=== PATIENT | female | born 1985 | race Caucasian/White ===

== ENCOUNTER → 2020-06-29 09:25 | Outpatient (BNVA) | payer OTHER, SELFPAY | PROVIDERS: PCP Internal Medicine; Referring Provider Internal Medicine; Visit Provider Internal Medicine Endocrinology, Diabetes & Metabolism | DX: E03.8 Other specified hypothyroidism (principal); E06.3 Autoimmune thyroiditis; E31.0 Autoimmune polyglandular failure; E28.39 Other primary ovarian failure; D51.0 Vitamin B12 deficiency anemia due to intrinsic factor deficiency; E66.01 Morbid (severe) obesity due to excess calories; E55.9 Vitamin D deficiency, unspecified; Z88.0 Allergy status to penicillin; Z91.19 Patient's noncompliance with other medical treatment and regimen; Z79.899 Other long term (current) drug therapy | CPT/HCPCS: 99212; Q3014 ==

== ENCOUNTER 2020-07-13 10:24 | Outpatient (REF) | payer OTHER, SELFPAY ==
[2020-07-13 14:58] LABS: Free T4 (Free Thyroxine) 0.69 ng/dL (0.71-1.85); Thyroid Stimulating Hormone 40.59 uIU/mL (0.32-4.0); Vitamin D 25-OH Total 30.5 ng/mL (>30)
[2020-07-13 15:22] LABS: Vitamin B12 513 pg/mL (200-900)
== END 2020-07-13 10:25 | disposition home or self-care (01) ==
LOC: HO.10HDL 10:24
PROVIDERS: Visit Provider Internal Medicine Endocrinology, Diabetes & Metabolism
DX: E06.3 Autoimmune thyroiditis (principal); E03.8 Other specified hypothyroidism; E55.9 Vitamin D deficiency, unspecified; D51.0 Vitamin B12 deficiency anemia due to intrinsic factor deficiency
CPT/HCPCS: 82306; 82607; 84439; 84443

== ENCOUNTER 2020-08-23 13:29 | Outpatient (REF) | payer OTHER, SELFPAY | END 2020-08-23 13:30 | disposition home or self-care (01) | LOC: HO.LAB 13:29 | PROVIDERS: Visit Provider Internal Medicine | DX: Z20.828 Contact with and (suspected) exposure to other viral communicable diseases (principal) | CPT/HCPCS: C9803; U0003 ==

== ENCOUNTER 2020-09-14 14:54 | Outpatient (REF) | payer OTHER, SELFPAY ==
[2020-09-15 09:13] LABS: CT PCR NOT DETECTED (Not Detect.); NG PCR NOT DETECTED (Not Detect.)
[2020-09-15 09:32] LABS: BV Int Neg Control Negative (Negative); BV Int Pos Control Positive (Positive)
== END 2020-09-14 14:55 | disposition home or self-care (01) ==
LOC: HO.LAB 14:54
PROVIDERS: Visit Provider Nurse Practitioner Family
DX: R10.2 Pelvic and perineal pain (principal)
CPT/HCPCS: 87480; 87491; 87510; 87591; 87660

== ENCOUNTER 2021-02-15 13:57 | Outpatient (REF) | payer OTHER, SELFPAY ==
[2021-02-15 16:10] LABS: Free T4 (Free Thyroxine) 1.18 ng/dL (0.71-1.85); Thyroid Stimulating Hormone 0.63 uIU/mL (0.32-4.0)
[2021-02-16 08:42] LABS: Follicle Stimulating Hormone 47.7 mIU/mL; Lutenizing Hormone 34.9 mIU/mL
[2021-02-24 01:51] LABS: Estradiol Free 0.31 pg/mL; Estradiol, Ultrasensitive 13 pg/mL
== END 2021-02-15 13:58 | disposition home or self-care (01) ==
LOC: HO.LAB 13:57
PROVIDERS: PCP Internal Medicine; Visit Provider Internal Medicine Endocrinology, Diabetes & Metabolism
DX: Z91.19 Patient's noncompliance with other medical treatment and regimen (principal); E03.8 Other specified hypothyroidism; E06.3 Autoimmune thyroiditis; E31.0 Autoimmune polyglandular failure; E28.39 Other primary ovarian failure; D51.0 Vitamin B12 deficiency anemia due to intrinsic factor deficiency; E55.9 Vitamin D deficiency, unspecified; E66.9 Obesity, unspecified
CPT/HCPCS: 36415; 82670; 82681; 83001; 83002; 84439; 84443; 99212

== ENCOUNTER 2021-03-28 13:28 | Outpatient (REF) | payer OTHER, SELFPAY | END 2021-03-28 13:29 | disposition home or self-care (01) | LOC: HO.LAB 13:28 | PROVIDERS: PCP Internal Medicine; Visit Provider Internal Medicine | DX: Z20.822 Contact with and (suspected) exposure to COVID-19 (principal) | CPT/HCPCS: C9803; U0003; U0005 ==

== ENCOUNTER 2021-04-28 11:20 | Outpatient (REF) | payer OTHER, SELFPAY ==
[2021-04-28 11:55] LABS: COVID-19 Test Negative (Negative)
== END 2021-04-28 11:21 | disposition home or self-care (01) ==
LOC: HO.LAB 11:20
PROVIDERS: PCP Internal Medicine; Visit Provider Internal Medicine
DX: Z20.822 Contact with and (suspected) exposure to COVID-19 (principal)
CPT/HCPCS: 36415; 87635; C9803

== ENCOUNTER 2021-05-19 11:41 | Outpatient (REF) | payer OTHER, SELFPAY | END 2021-05-19 11:42 | disposition home or self-care (01) | LOC: HO.LAB 11:41 | PROVIDERS: PCP Internal Medicine; Visit Provider Internal Medicine | DX: Z20.822 Contact with and (suspected) exposure to COVID-19 (principal) | CPT/HCPCS: C9803; U0003; U0005 ==

== ENCOUNTER 2021-06-09 10:37 | Outpatient (REF) | payer OTHER, SELFPAY | END 2021-06-09 10:38 | disposition home or self-care (01) | LOC: HO.LAB 10:37 | PROVIDERS: PCP Internal Medicine; Visit Provider Internal Medicine | DX: Z20.822 Contact with and (suspected) exposure to COVID-19 (principal) | CPT/HCPCS: C9803; U0003; U0005 ==

== ENCOUNTER 2021-06-28 13:06 | Outpatient (REF) | payer OTHER, SELFPAY | END 2021-06-28 13:07 | disposition home or self-care (01) | LOC: HO.LAB 13:06 | PROVIDERS: Visit Provider Internal Medicine | DX: Z20.822 Contact with and (suspected) exposure to COVID-19 (principal) | CPT/HCPCS: C9803; U0003; U0005 ==

== ENCOUNTER 2021-09-02 08:40 | Outpatient (REF) | payer OTHER, SELFPAY ==
[2021-09-02 09:07] LABS: Binax Internal Control QC Valid; Binax Now Covid-19 Ag Positive (Negative); Binax Performed by: HO.BONILM
== END 2021-09-02 08:41 | disposition home or self-care (01) ==
LOC: HO.HMGCLDS 08:40
PROVIDERS: PCP Internal Medicine; Visit Provider Internal Medicine
DX: Z20.822 Contact with and (suspected) exposure to COVID-19 (principal); J06.9 Acute upper respiratory infection, unspecified
CPT/HCPCS: 36415

== ENCOUNTER 2021-09-09 10:34 | Outpatient (REF) | payer OTHER, SELFPAY ==
[2021-09-09 13:16] LABS: Binax Internal Control QC Valid; Binax Lot number: 9864; Binax Now Covid-19 Ag Positive (Negative)
== END 2021-09-09 10:35 | disposition home or self-care (01) ==
LOC: HO.LAB 10:34
PROVIDERS: Visit Provider Internal Medicine
DX: Z20.822 Contact with and (suspected) exposure to COVID-19 (principal)
CPT/HCPCS: C9803

== ENCOUNTER 2021-09-12 23:39 | Emergency (ER) | payer OTHER, SELFPAY ==
[2021-09-13 00:12] VITALS: BP 137/91; PULSE 75; RESP 18; TEMP 36.6; O2SAT 99; BMI 35.6
[2021-09-13 00:36] LABS: COVID-19 Test Positive (Negative); IDNOW Serial# 9DD0AD1C
[2021-09-13 02:26] VITALS: BP 140/87; PULSE 78; RESP 16; O2SAT 99
--- NOTE | 2021-09-13 03:00 | ED.URI ---
HPI - URI/Sore Throat General Chief Complaint: Upper Respiratory Symptoms Stated Complaint: Covid symptoms/ Covid+ 09/02 Time Seen by Provider: 09/13/21 01:00 History of Present Illness HPI Narrative: Patient 36 years old with a history of coughing congestion upper respiratory symptom positive history of COVID test. Symptoms persistent for the last 10 days. Positive generalized malaise weakness. Patient vaccinated for COVID x2 shots. Patient feels very tired weak. Nauseous at times. Related Data Previous Rx's Medication Instructions Recorded cholecalciferol (vitamin D3) 50 50 mcg PO DAILY 90 Days #90 cap 02/15/21 mcg (2,000 unit) capsule (Vitamin D3) cyanocobalamin (vitamin B-12) 500 500 mcg SUBLINGUAL DAILY 90 Days 02/15/21 mcg disintegrating #90 tab tablet,sublingual Levoxyl 150 mcg tablet 150 mcg PO DAILY 30 Days #90 tab NS 05/03/21 (levothyroxine) azithromycin 250 mg tablet See Rx Instructions PO .COMPLEX #6 09/02/21 tab ibuprofen 400 mg tablet 400 mg PO Q6H PRN #20 tab 09/13/21 ondansetron 4 mg disintegrating 4 mg PO TID PRN 5 Days #10 tab 09/13/21 tablet Allergies Allergy/AdvReac Type Severity Reaction Status Date / Time Penicillins Allergy Mild RASH Unverified 09/02/21 08:28 penicillin V Allergy Unknown hives Unverified 09/02/21 08:28 Review of Systems Review of Systems: Positive coughing upper respiratory symptoms positive generalized malaise positive nausea Yes all other systems are reviewed and are negative PMFSH Past Medical History Medical History (Updated 09/13/21 @ 03:02 by Alka Penny MD) Hypothyroidism Non-adherence to medical treatment Obesity Pernicious anemia Polyglandular autoimmune syndrome Premature ovarian failure Vitamin D deficiency Surgical History (Updated 06/28/20 @ 12:37 by VINCENT Smith) Hx of tubal ligation Family History Family History (Updated 06/28/20 @ 12:38 by VINCENT Smith) Father No problems noted. Mother Migraine headache Social History Social History Patient Tobacco Use Status: Never used Tobacco Advance Directives: No Physical Exam Vital Signs: Vital Signs: Last Vital Signs Temp 97.9 F 09/13/21 00:12 Pulse 78 01/18/22 02:26 Resp 16 09/13/21 02:26 BP 140/87 H 09/13/21 02:26 Pulse Ox 99 09/13/21 02:26 BMI result Body Mass Index 35.6 Appearance: Alert. Oriented X3. No acute distress. Eyes: Pupils equal, round and reactive to light. ENT: Pharynx normal. Neck: Normal inspection. Neck supple. No lymph nodes noted. No crepitus CVS: Normal heart rate and rhythm. Pulses normal. Normal S1 and S2 Respiratory: No respiratory distress. Breath sounds normal. No Wheezing. No rales Abdomen: Soft and nontender. No rigidity. No distention. good BS x4 Skin: Skin warm and dry. Normal skin color. Normal skin turgor. Extremities: No lower extremity edema. Neurovascular intact to all extremities. No Lacerations. No Rash Neuro: Oriented X 3. No motor deficit. No sensory deficit. Moving all extermities. No slurred speech MDM - URI/Sore Throat MDM Narrative Medical decision making narrative: O2 sats 99% on room air gently well appearing no acute distress low-grade temperature will have patient take Motrin for aches. Zofran for nausea. Close follow-up on an outpatient basis home isolation into all symptom has resolved for at least 2 days. Medical Records Attestation: I reviewed the patient's medical records. Lab Data Attestation: I reviewed the patient's lab results. Labs: Lab Results 09/13/21 Range/Units 00:03 COVID-19 ([facility]) Positive A (Negative) COVID-19 Clin Com See Note Discharge Plan Discharge Clinical Impression: COVID-19 Patient Disposition: Home, Self-Care Instructions: COVID-19 (Coronavirus Disease 2019) (ED) Prescriptions: New ibuprofen 400 mg tablet 400 mg PO Q6H PRN (Reason: pain) Qty: 20 RF: 0 ondansetron 4 mg tablet,disintegrating 4 mg PO TID PRN (Reason: nausea and vomiting) 5 Days Qty: 10 RF: 0 No Action levothyroxine [Levoxyl] 150 mcg tablet 150 mcg PO DAILY 30 Days Qty: 90 RF: 0 azithromycin 250 mg tablet See Rx Instructions PO .COMPLEX Qty: 6 RF: 0 cholecalciferol (vitamin D3) [Vitamin D3] 50 mcg (2,000 unit) capsule 50 mcg PO DAILY 90 Days Qty: 90 RF: 1 cyanocobalamin (vitamin B-12) 500 mcg tablet,disintegrating 500 mcg sublingual DAILY 90 Days Qty: 90 RF: 1 Referrals: Noble Bernardo MD [Primary Care Provider] - 2 days (Home isolation into all symptom has resolved for at least 2 days.)
== END 2021-09-13 03:10 | disposition home or self-care (01) ==
PROVIDERS: Emergency Provider Emergency Medicine Emergency Medical Services; PCP Internal Medicine
DX: U07.1 COVID-19 (principal)
CPT/HCPCS: 87635; 99283

== ENCOUNTER 2021-09-16 09:41 | Outpatient (REF) | payer OTHER, SELFPAY ==
[2021-09-16 10:17] LABS: Binax Now Covid-19 Ag Negative (Negative)
[2021-09-16 10:18] LABS: Binax Internal Control QC Valid
== END 2021-09-16 09:42 | disposition home or self-care (01) ==
LOC: HO.LAB 09:41
PROVIDERS: Visit Provider Internal Medicine
DX: Z20.822 Contact with and (suspected) exposure to COVID-19 (principal)
CPT/HCPCS: C9803

== ENCOUNTER 2021-10-04 13:17 | Outpatient (REF) | payer OTHER, SELFPAY ==
[2021-10-04 13:40] LABS: COVID-19 Test Negative (Negative)
== END 2021-10-04 13:18 | disposition home or self-care (01) ==
LOC: HO.LAB 13:17
PROVIDERS: Visit Provider Internal Medicine
DX: Z20.822 Contact with and (suspected) exposure to COVID-19 (principal)
CPT/HCPCS: 87635; C9803

== ENCOUNTER 2021-10-07 07:43 | Outpatient (REF) | payer OTHER, SELFPAY ==
[2021-10-07 08:07] LABS: COVID-19 Test Negative (Negative); IDNOW Serial# 16C4AD1C
== END 2021-10-07 07:44 | disposition home or self-care (01) ==
LOC: HO.LAB 07:43
PROVIDERS: Visit Provider Internal Medicine
DX: Z20.822 Contact with and (suspected) exposure to COVID-19 (principal)
CPT/HCPCS: 87635; C9803

== ENCOUNTER 2021-10-10 13:07 | Outpatient (REF) | payer OTHER, SELFPAY ==
[2021-10-11 08:24] LABS: COVID-19 Test Negative (Negative); IDNOW Serial# 16C4AD1C
== END 2021-10-10 13:08 | disposition home or self-care (01) ==
LOC: HO.LAB 13:07
PROVIDERS: Visit Provider Internal Medicine
DX: Z20.822 Contact with and (suspected) exposure to COVID-19 (principal)
CPT/HCPCS: 87635; C9803

== ENCOUNTER 2021-12-19 10:37 | Outpatient (REF) | payer OTHER, SELFPAY ==
[2021-12-19 11:59] LABS: COVID-19 Test Negative (Negative); IDNOW Serial# 16C4AD1C
== END 2021-12-19 10:38 | disposition home or self-care (01) ==
LOC: HO.LAB 10:37
PROVIDERS: Visit Provider Internal Medicine
DX: Z20.822 Contact with and (suspected) exposure to COVID-19 (principal)
CPT/HCPCS: 87635; C9803

== ENCOUNTER 2021-12-26 10:45 | Outpatient (REF) | payer OTHER, SELFPAY ==
[2021-12-26 11:19] LABS: MANUAL DIFF FLAG NO
[2021-12-26 11:58] LABS: Basophils Absolute Auto 0.1 X10*3/uL (0.0-0.2); Basophils Percent Auto 0.9 % (0-2); Eosinophils Absolute Auto 0.1 X10*3/uL (0.0-0.4); Eosinophils Percent Auto 1.8 % (0-4); Hematocrit 41.1 % (37.0-47.0); Imm Gran Abs Auto 0.02 X10*3/uL (0.00-0.03); Imm Gran Pct Auto 0.3 % (0.0-0.4); Lymphocytes Absolute Auto 2.6 X10*3/uL (1.2-4.9); Lymphocytes Percent Auto 33.1 % (20-40); Mean Corpuscular HGB Conc 31.6 g/dl (31.0-35.0); Mean Corpuscular Hemoglobin 25.9 pg (27.0-33.0); Mean Corpuscular Volume 81.9 fL (80.0-98.0); Mean Platelet Volume 11.4 fL (9.4-12.3); Monocytes Absolute Auto 0.5 X10*3/uL (0.1-1.2); Monocytes Percent Auto 6.6 % (2-11); Neutrophils Absolute Auto 4.4 x10*3/uL (2.0-8.3); Neutrophils Percent Auto 57.3 % (45-73); Platelet Count 339 X10*3/uL (160-400); Red Blood Count 5.02 X10*6/uL (4.20-5.50); Red Cell Distribution Width 14.4 % (11.0-16.0); White Blood Count 7.7 X10*3/uL (4.8-10.8)
[2021-12-26 12:08] LABS: Alanine Aminotransferase 17 U/L (0-31); Albumin Level 4.4 g/dL (3.5-5.0); Alkaline Phosphatase 88 U/L (39-117); Anion Gap 14 (12-20); Aspartate Amino Transferase 22 U/L (5-31); Bilirubin Total 0.6 mg/dL (0.0-1.0); Blood Urea Nitrogen 13 mg/dL (9-16); Calcium 9.9 mg/dL (8.4-10.2); Carbon Dioxide 25 mmol/L (22-29); Chloride 103 mmol/L (96-108); Cholesterol 274 mg/dL; Estimated Glomerular Filt Rate > 60; Glucose Fasting 85 mg/dL (60-99); HDL Cholesterol 44 mg/dL; LDL Cholesterol Calculated 184 mg/dl; Potassium 4.4 mmol/L (3.3-5.1); Sodium 138 mmol/L (135-145); Total Protein 7.8 g/dL (6.5-8.0); Triglycerides 231 mg/dL
[2021-12-26 12:29] LABS: TSH reflex Free T4 22.82 uIU/mL (0.32-4.0)
[2021-12-26 12:47] LABS: Vitamin B12 531 pg/mL (200-900)
[2021-12-26 13:07] LABS: Free T4 (Free Thyroxine) 0.86 ng/dL (0.71-1.85)
[2021-12-31 12:17] LABS: Vitamin D 25-OH, D2 <4 ng/mL; Vitamin D 25-OH, D3 34 ng/mL; Vitamin D 25-OH, Total 34 ng/mL (30-100)
== END 2021-12-26 10:46 | disposition home or self-care (01) ==
LOC: HO.HMGCLDS 10:45
PROVIDERS: PCP Internal Medicine; Visit Provider Internal Medicine
DX: Z00.01 Encounter for general adult medical examination with abnormal findings (principal); E66.09 Other obesity due to excess calories; E28.39 Other primary ovarian failure; E31.0 Autoimmune polyglandular failure; E03.9 Hypothyroidism, unspecified; D51.0 Vitamin B12 deficiency anemia due to intrinsic factor deficiency
CPT/HCPCS: 36415; 80053; 80061; 82306; 82607; 84439; 84443; 85025

== ENCOUNTER 2022-04-11 09:08 | Outpatient (REF) | payer OTHER, SELFPAY ==
[2022-04-11 10:03] LABS: COVID-19 Test Negative (Negative); IDNOW Serial# 08D9AD1C
== END 2022-04-11 09:09 | disposition home or self-care (01) ==
LOC: HO.LAB 09:08
PROVIDERS: Visit Provider Internal Medicine
DX: Z20.822 Contact with and (suspected) exposure to COVID-19 (principal)
CPT/HCPCS: 87635; C9803

== ENCOUNTER 2022-04-23 20:21 | Emergency (ER) | payer OTHER, SELFPAY ==
--- NOTE | ~2022-04-23 | XR_ITS ---
EXAMINATION: XR CHEST CLINICAL INFORMATION: Chest pain COMPARISON: None TECHNIQUE: Frontal view of the chest was obtained. FINDINGS: The lungs are clear. No airspace consolidation, pleural effusion, or pneumothorax. The cardiomediastinal silhouette is within normal limits. No acute osseous injury. XR/XR chest 1V IMPRESSION: Unremarkable examination.
[2022-04-23 20:58] VITALS: BP 131/96; PULSE 80; RESP 21; TEMP 37.1; O2SAT 99; BMI 36.6
[2022-04-23] MEDS: Ondansetron ODT 4 MG TAB.RAPDIS SUBLINGUAL (21:04)
--- NOTE | 2022-04-23 21:08 | ECG_ITS ---
Test Reason : NAUSEA Blood Pressure : / mmHG Vent. Rate : 074 BPM Atrial Rate : 074 BPM P-R Int : 154 ms QRS Dur : 090 ms QT Int : 398 ms P-R-T Axes : 053 031 039 degrees QTc Int : 441 ms Normal sinus rhythm Normal ECG When compared with ECG of 21-MAY-2009 15:52, No significant change was found Referred By: Generic ED Physician Electronically Signed By:DEJAH SILVA
--- NOTE | 2022-04-23 21:12 | ED.NAVMDI ---
HPI - Nausea/Vomiting/Diarrhea General Chief complaint: Nausea/Vomiting/Diarrhea Stated complaint: dizzy, vomiting Time Seen by Provider: 04/23/22 21:10 Source: patient Mode of arrival: ambulatory Limitations: no limitations History of Present Illness HPI Narrative: Patient with no significant abdominal issue, history of migraine had was in [place] yesterday and today, around 16:00 started vomiting multiple times about 10-15 times with 6-7 times diarrhea and diffuse abdominal pain patient denied any alcohol drinks vomiting started 1st followed by epigastric pain also complaining of headache which is on the left side of the head similar in the migraine with slight light sensitivity no fever or chills no other family member sick with same symptoms , patient did not drink any alcohol Related Data Previous Rx's Medication Instructions Recorded cyanocobalamin (vitamin B-12) 500 500 mcg sublingual DAILY 90 days 02/15/21 mcg disintegrating #90 tabs tablet,sublingual ondansetron 4 mg disintegrating 4 mg PO TID PRN nausea and 09/13/21 tablet vomiting 5 days #10 tabs ibuprofen 400 mg tablet 400 mg PO Q6H PRN pain #20 tabs 12/07/21 Levoxyl 150 mcg tablet 150 mcg PO DAILY 30 days #90 tabs 02/17/22 (levothyroxine) cholecalciferol (vitamin D3) 50 50 mcg PO DAILY 90 days #90 caps 02/20/22 mcg (2,000 unit) capsule (Vitamin D3) amitriptyline 10 mg tablet 10 mg PO BEDTIME 30 days #30 tabs 03/23/22 sumatriptan succinate 25 mg tablet 25 mg PO ONCE PRN migraine 04/11/22 headache 30 days #10 tabs ondansetron 4 mg disintegrating 4 mg PO Q6-8H PRN nausea and 04/24/22 tablet vomiting #15 tabs Allergies Allergy/AdvReac Type Severity Reaction Status Date / Time Penicillins Allergy Mild RASH Verified 04/23/22 21:01 penicillin V Allergy Unknown hives Verified 04/23/22 21:01 Review of Systems Review of Systems: Yes all other systems are reviewed and are negative [facility] Past Medical History Medical History Hypothyroidism Non-adherence to medical treatment Obesity Pernicious anemia Polyglandular autoimmune syndrome Premature ovarian failure Vitamin D deficiency Surgical History Hx of tubal ligation Family History Family History Father No problems noted. Mother Migraine headache Other Mental health disorder Substance use disorder Social History Social History Housing: Apartment Patient Tobacco Use Status: Never used Tobacco e-Cigarette/Vaping Use: Never Used Advance Directives: No Advance Directives Information Provided: No Patient : No Current occupational status: employed Cognitive needs: No Hearing needs: No Vision needs: No Physical Exam Vital Signs: Vital Signs: Last Vital Signs Temp 97.8 F 04/24/22 00:08 Pulse 80 04/24/22 00:08 Resp 15 04/24/22 00:08 BP 140/84 H 04/24/22 00:08 Pulse Ox 97 04/24/22 00:08 O2 Del Method 04/24/22 00:08 BMI result Body Mass Index 36.6 Appearance: Alert. Oriented X3. No acute distress. Eyes: PERRLA, No Nystagmus ENT: Pharynx normal. Oral Mucosa moist Neck: Normal inspection. Neck supple. CVS: Normal heart rate and rhythm. Pulses normal. Respiratory: No respiratory distress. Equal air entry bilateral, no wheezing/rales/rhonchi Abdomen: Soft, epigastric tenderness, Mariee sign negative Bowel sounds are present, no mass palpable, no CVA tenderness Skin: Skin warm and dry. Normal skin color. Normal skin turgor. Extremities: No lower extremity edema. No calf tenderness Neuro: Oriented X 3. No motor deficit. No sensory deficit.No cerebellar signs , cranial nerves II-XII intact MDM - Nausea/Vomiting/Diarrhea MDM Narrative Medical decision making narrative: Patient acute gastritis with vomiting improved after IV fluids and Zofran also had migraine headache which also improved patient does not have any history of hypertension but blood pressure was elevated which she gets usually when she is stressed out or in pain patient advised to follow with PCP and monitor her blood pressure patient was able to drink p.o. fluids in the ER will discharge patient home Lab Data Attestation: I reviewed the patient's lab results. Result diagrams: 04/23/22 21:26 04/23/22 22:29 Labs: Lab Results 04/23/22 04/23/22 04/23/22 Range/Units 21:21 21:26 22:29 WBC 9.7 (4.8-10.8) X10*3/uL RBC 5.51 H (4.20-5.50) X10*6/uL Hgb 13.7 (12.0-16.0) g/dl Hct 42.0 (37.0-47.0) % MCV 76.2 L (80.0-98.0) fL MCH 24.9 L (27.0-33.0) pg MCHC 32.6 (31.0-35.0) g/dl RDW 15.7 (11.0-16.0) % Plt Count 302 (160-400) X10*3/uL MPV 11.0 (9.4-12.3) fL Immature Gran % (Auto) 0.2 (0.0-0.4) % Neut % (Auto) 72.7 (45-73) % Lymph % (Auto) 19.5 L (20-40) % [place] % (Auto) 5.6 (2-11) % Eos % (Auto) 1.3 (0-4) % Baso % (Auto) 0.7 (0-2) % Lymph # (Auto) 1.9 (1.2-4.9) X10*3/uL [place] # (Auto) 0.6 (0.1-1.2) X10*3/uL Eos # (Auto) 0.1 (0.0-0.4) X10*3/uL Baso # (Auto) 0.1 (0.0-0.2) X10*3/uL Abs Immat Gran (auto) 0.02 (0.00-0.03) X10*3/uL Absolute Neuts (auto) 7.1 (2.0-8.3) x10*3/uL Absolute Nucleated RBC 0.000 (0.0-0.012) X10*3/uL Nucleated RBC % (auto) 0.0 (0.0-0.2) /100WBC Sodium 139 (135-145) mmol/L Potassium 3.5 D (3.3-5.1) mmol/L Chloride 103 (96-108) mmol/L Carbon Dioxide 23 (22-29) mmol/L Anion Gap 17 (12-20) BUN 13 (9-16) mg/dL Creatinine 1.01 (0.5-1.4) mg/dL Estim Creat Clear Calc 79.1 Estimated GFR > 60 Random Glucose 124 H (60-115) mg/dL Calcium 9.3 D (8.4-10.2) mg/dL Total Bilirubin 0.5 (0.0-1.0) mg/dL Direct Bilirubin 0.2 (0.0-0.5) mg/dL AST 25 (5-31) U/L ALT 25 (0-31) U/L Alkaline Phosphatase 99 (39-117) U/L Total Protein 7.8 (6.5-8.0) g/dL Albumin 4.5 (3.5-5.0) g/dL Lipase 31 (8-78) U/L Urine Color Urine Appearance Urine pH (5.0-8.0) Ur Specific [place] (1.005-1.025) Urine Protein (Neg-Trace) mg/dL Urine Glucose (UA) (Negative) mg/dL Urine Ketones (Negative) mg/dL Urine Blood (Negative) Urine Nitrite (Negative) Ur Leukocyte Esterase (Negative) Urine RBC (0-2) /HPF Urine WBC (0-5) /HPF Ur Squamous Epith Cells (0-2) /HPF Urine Bacteria (None Seen) Hyaline Casts (0-2) /LPF Urine Test (NEGATIVE) COVID-19 ([facility]) Negative (Negative) COVID-19 Clin Com See Note 04/23/22 04/23/22 Range/Units 22:29 22:29 WBC (4.8-10.8) X10*3/uL RBC (4.20-5.50) X10*6/uL Hgb (12.0-16.0) g/dl Hct (37.0-47.0) % MCV (80.0-98.0) fL MCH (27.0-33.0) pg MCHC (31.0-35.0) g/dl RDW (11.0-16.0) % Plt Count (160-400) X10*3/uL MPV (9.4-12.3) fL Immature Gran % (Auto) (0.0-0.4) % Neut % (Auto) (45-73) % Lymph % (Auto) (20-40) % [place] % (Auto) (2-11) % Eos % (Auto) (0-4) % Baso % (Auto) (0-2) % Lymph # (Auto) (1.2-4.9) X10*3/uL [place] # (Auto) (0.1-1.2) X10*3/uL Eos # (Auto) (0.0-0.4) X10*3/uL Baso # (Auto) (0.0-0.2) X10*3/uL Abs Immat Gran (auto) (0.00-0.03) X10*3/uL Absolute Neuts (auto) (2.0-8.3) x10*3/uL Absolute Nucleated RBC (0.0-0.012) X10*3/uL Nucleated RBC % (auto) (0.0-0.2) /100WBC Sodium (135-145) mmol/L Potassium (3.3-5.1) mmol/L Chloride (96-108) mmol/L Carbon Dioxide (22-29) mmol/L Anion Gap (12-20) BUN (9-16) mg/dL Creatinine (0.5-1.4) mg/dL Estim Creat Clear Calc Estimated GFR Random Glucose (60-115) mg/dL Calcium (8.4-10.2) mg/dL Total Bilirubin (0.0-1.0) mg/dL Direct Bilirubin (0.0-0.5) mg/dL AST (5-31) U/L ALT (0-31) U/L Alkaline Phosphatase (39-117) U/L Total Protein (6.5-8.0) g/dL Albumin (3.5-5.0) g/dL Lipase (8-78) U/L Urine Color Yellow Urine Appearance Clear Urine pH >= 9.0 H (5.0-8.0) Ur Specific [place] 1.025 (1.005-1.025) Urine Protein 30 (1+) H (Neg-Trace) mg/dL Urine Glucose (UA) Negative (Negative) mg/dL Urine Ketones 15 (Negative) mg/dL Urine Blood Negative (Negative) Urine Nitrite Negative (Negative) Ur Leukocyte Esterase Trace H (Negative) Urine RBC 0-2 (0-2) /HPF Urine WBC 0-5 (0-5) /HPF Ur Squamous Epith Cells 3-5 (0-2) /HPF Urine Bacteria 1+ (None Seen) Hyaline Casts 0-2 (0-2) /LPF Urine Test NEGATIVE (NEGATIVE) COVID-19 ([facility]) (Negative) COVID-19 Clin Com Discharge Plan Discharge Clinical Impression: Vomiting and diarrhea, Dehydration Patient Disposition: Home, Self-Care Instructions: Acute Nausea and Vomiting (ED), Acute Diarrhea (ED) Additional Instructions: Drink plenty of fluids Nausea medication as prescribed Repair of the ER/PCP if not better A blood pressure noticed to be slightly elevated keep an eye on the blood pressure check at least twice daily it should be less than 130/80 Prescriptions: New ondansetron 4 mg tablet,disintegrating 4 mg PO Q6-8H PRN (Reason: nausea and vomiting) Qty: 15 0RF No Action levothyroxine [Levoxyl] 150 mcg tablet 150 mcg PO DAILY 30 Days Qty: 90 0RF cholecalciferol (vitamin D3) [Vitamin D3] 50 mcg (2,000 unit) capsule 50 mcg PO DAILY 90 Days Qty: 90 1RF amitriptyline 10 mg tablet 10 mg PO BEDTIME 30 Days Qty: 30 0RF sumatriptan succinate 25 mg tablet 25 mg PO ONCE PRN (Reason: migraine headache) 30 Days Qty: 10 1RF Rx Instructions: take at onset of headache with one ibuprofen ondansetron 4 mg tablet,disintegrating 4 mg PO TID PRN (Reason: nausea and vomiting) 5 Days Qty: 10 0RF ibuprofen 400 mg tablet 400 mg PO Q6H PRN (Reason: pain) Qty: 20 0RF cyanocobalamin (vitamin B-12) 500 mcg tablet,disintegrating 500 mcg sublingual DAILY 90 Days Qty: 90 1RF Stand Alone Forms: Work/School Release Interventions: ED Discharge Assessment Last Done: 04/24/22 00:10 Discharge Date/Time: 04/24/22 00:11
[2022-04-23 21:14] VITALS: BP 138/97; PULSE 80; RESP 18; TEMP 36.6; O2SAT 100
--- NOTE | 2022-04-23 21:29 | PC.NURSE ---
COVID swab and labs collected and sent as ordered
[2022-04-23 21:32] LABS: MANUAL DIFF FLAG NO
[2022-04-23 21:34] LABS: Basophils Absolute Auto 0.1 X10*3/uL (0.0-0.2); Basophils Percent Auto 0.7 % (0-2); Eosinophils Absolute Auto 0.1 X10*3/uL (0.0-0.4); Eosinophils Percent Auto 1.3 % (0-4); Hemoglobin 13.7 g/dl (12.0-16.0); Imm Gran Abs Auto 0.02 X10*3/uL (0.00-0.03); Imm Gran Pct Auto 0.2 % (0.0-0.4); Lymphocytes Absolute Auto 1.9 X10*3/uL (1.2-4.9); Lymphocytes Percent Auto 19.5 % (20-40); Mean Corpuscular HGB Conc 32.6 g/dl (31.0-35.0); Mean Corpuscular Hemoglobin 24.9 pg (27.0-33.0); Mean Corpuscular Volume 76.2 fL (80.0-98.0); Monocytes Absolute Auto 0.6 X10*3/uL (0.1-1.2); Monocytes Percent Auto 5.6 % (2-11); Neutrophils Absolute Auto 7.1 x10*3/uL (2.0-8.3); Neutrophils Percent Auto 72.7 % (45-73); Platelet Count 302 X10*3/uL (160-400); Red Blood Count 5.51 X10*6/uL (4.20-5.50); Red Cell Distribution Width 15.7 % (11.0-16.0); White Blood Count 9.7 X10*3/uL (4.8-10.8)
[2022-04-23] MEDS: Ketorolac Tromethamine 30 MG/ML VIAL IVPUSH (21:34)
[2022-04-23] MEDS: Prochlorperazine Edisylate 10 MG/2 ML VIAL IVPUSH (21:34)
[2022-04-23] MEDS: Famotidine/PF 20 MG/2 ML VIAL IVPUSH (21:34)
[2022-04-23] MEDS: 0.9 % Sodium Chloride 1,000 ML 999 ML IV (21:35)
[2022-04-23 21:51] LABS: COVID-19 Test Negative (Negative)
--- NOTE | 2022-04-23 22:22 | PC.NURSE ---
Care delayed - lab did not notify that labs were hemolyzed. Labs are being redrawn now
[2022-04-23 22:38] LABS: Appearance Urine Clear; Color Urine Yellow; Glucose Urine UA Negative (Negative); Leukocyte Esterase Urine Trace (Negative); Nitrite Urine Negative (Negative); PH >= 9.0 (5.0-8.0); Specific Gravity - Urine 1.025 (1.005-1.025); Urine Blood Negative (Negative); Urine Ketones 15 mg/dL (Negative); Urine Protein 30 (1+) mg/dL (Neg-Trace)
[2022-04-23 22:42] LABS: UPreg QC Valid YES; Urine Pregnancy NEGATIVE (NEGATIVE)
[2022-04-23 22:47] LABS: Bacteria Urine 1+ (None Seen); Hyaline Casts Urine 0-2 /LPF (0-2); RBC Urine 0-2 /HPF (0-2); WBC Urine 0-5 /HPF (0-5)
[2022-04-23 22:52] LABS: Alanine Aminotransferase 25 U/L (0-31); Albumin Level 4.5 g/dL (3.5-5.0); Alkaline Phosphatase 99 U/L (39-117); Anion Gap 17 (12-20); Aspartate Amino Transferase 25 U/L (5-31); Bilirubin Direct 0.2 mg/dL (0.0-0.5); Bilirubin Total 0.5 mg/dL (0.0-1.0); Blood Urea Nitrogen 13 mg/dL (9-16); Calcium 9.3 mg/dL (8.4-10.2); Carbon Dioxide 23 mmol/L (22-29); Chloride 103 mmol/L (96-108); Creatinine Clr Calc Pharmacy 79.1; Estimated Glomerular Filt Rate > 60; Glucose Random 124 mg/dL (60-115); Lipase 31 U/L (8-78); Potassium 3.5 mmol/L (3.3-5.1); Sodium 139 mmol/L (135-145); Total Protein 7.8 g/dL (6.5-8.0)
--- NOTE | 2022-04-23 23:40 | PC.NURSE ---
Per MD Evelyn, don't hang the second ordered bag of fluids. Doing PO challenge with pt. now, and will d/c if PO is tolerated.
[2022-04-23 23:41] VITALS: BP 160/95; PULSE 95; RESP 16; O2SAT 95
[2022-04-24 00:08] VITALS: BP 140/84; PULSE 80; RESP 15; TEMP 36.6; O2SAT 97
== END 2022-04-24 00:11 | disposition home or self-care (01) ==
PROVIDERS: Emergency Provider Internal Medicine; PCP Internal Medicine
DX: R42 Dizziness and giddiness (principal); E86.0 Dehydration; R11.0 Nausea; Z20.822 Contact with and (suspected) exposure to COVID-19; Z79.899 Other long term (current) drug therapy
CPT/HCPCS: 36415; 71045; 80048; 80076; 81001; 81025; 83690; 85025; 87635; 93005; 96374; 96375; 99284; J1885

== ENCOUNTER 2022-04-25 09:47 | Outpatient (REF) | payer OTHER, SELFPAY ==
[2022-04-25 10:19] LABS: COVID-19 Test Negative (Negative)
== END 2022-04-25 09:48 | disposition home or self-care (01) ==
LOC: HO.LAB 09:47
PROVIDERS: Visit Provider Internal Medicine
DX: Z20.822 Contact with and (suspected) exposure to COVID-19 (principal)
CPT/HCPCS: 87635; C9803

== ENCOUNTER 2022-04-26 09:04 | Outpatient (REF) | payer OTHER, SELFPAY ==
[2022-04-26 10:01] LABS: COVID-19 Test Negative (Negative); IDNOW Serial# 9DB6401D
== END 2022-04-26 09:05 | disposition home or self-care (01) ==
LOC: HO.LAB 09:04
PROVIDERS: Visit Provider Internal Medicine
DX: Z20.822 Contact with and (suspected) exposure to COVID-19 (principal)
CPT/HCPCS: 87635; C9803

== ENCOUNTER 2022-04-27 09:10 | Outpatient (REF) | payer OTHER, SELFPAY ==
[2022-04-27 09:45] LABS: COVID-19 Test Negative (Negative); IDNOW Serial# 16C4AD1C
== END 2022-04-27 09:11 | disposition home or self-care (01) ==
LOC: HO.LAB 09:10
PROVIDERS: Visit Provider Internal Medicine
DX: Z20.822 Contact with and (suspected) exposure to COVID-19 (principal)
CPT/HCPCS: 87635; C9803

== ENCOUNTER 2022-05-10 09:19 | Outpatient (REF) | payer OTHER, SELFPAY ==
[2022-05-10 10:39] LABS: Alanine Aminotransferase 26 U/L (0-31); Albumin Level 4.5 g/dL (3.5-5.0); Alkaline Phosphatase 101 U/L (39-117); Anion Gap 15 (12-20); Aspartate Amino Transferase 23 U/L (5-31); Bilirubin Total 0.3 mg/dL (0.0-1.0); Blood Urea Nitrogen 13 mg/dL (9-16); Calcium 10.2 mg/dL (8.4-10.2); Carbon Dioxide 28 mmol/L (22-29); Chloride 103 mmol/L (96-108); Cholesterol 217 mg/dL; Estimated Glomerular Filt Rate > 60; Glucose Fasting 92 mg/dL (60-99); HDL Cholesterol 36 mg/dL; LDL Cholesterol Calculated 120 mg/dl; Potassium 4.9 mmol/L (3.3-5.1); Sodium 141 mmol/L (135-145); Total Protein 7.8 g/dL (6.5-8.0); Triglycerides 309 mg/dL
== END 2022-05-10 09:20 | disposition home or self-care (01) ==
LOC: HO.LAB 09:19
PROVIDERS: PCP Internal Medicine; Visit Provider Internal Medicine
DX: E03.8 Other specified hypothyroidism (principal); E66.09 Other obesity due to excess calories; E78.9 Disorder of lipoprotein metabolism, unspecified; G43.909 Migraine, unspecified, not intractable, without status migrainosus; Z91.19 Patient's noncompliance with other medical treatment and regimen
CPT/HCPCS: 36415; 80053; 80061; 84443

== ENCOUNTER → 2022-05-12 09:14 | Outpatient (BNVA) | payer OTHER, SELFPAY | PROVIDERS: PCP Internal Medicine; Visit Provider Internal Medicine Endocrinology, Diabetes & Metabolism | DX: E03.8 Other specified hypothyroidism (principal); E06.3 Autoimmune thyroiditis | CPT/HCPCS: 99212 ==

== ENCOUNTER 2022-05-18 08:59 | Outpatient (REF) | payer OTHER, SELFPAY ==
[2022-05-18 09:52] LABS: COVID-19 Test Positive (Negative); IDNOW Serial# 55D5AD1C
== END 2022-05-18 09:00 | disposition home or self-care (01) ==
LOC: HO.LAB 08:59
PROVIDERS: Visit Provider Internal Medicine
DX: Z20.822 Contact with and (suspected) exposure to COVID-19 (principal)
CPT/HCPCS: 87635; C9803

== ENCOUNTER 2022-05-23 08:58 | Outpatient (REF) | payer OTHER, SELFPAY ==
[2022-05-23 09:31] LABS: COVID-19 Test Positive (Negative); IDNOW Serial# 16C4AD1C
== END 2022-05-23 08:59 | disposition home or self-care (01) ==
LOC: HO.LAB 08:58
PROVIDERS: Visit Provider Internal Medicine
DX: Z20.822 Contact with and (suspected) exposure to COVID-19 (principal)
CPT/HCPCS: 87635; C9803

== ENCOUNTER 2022-05-25 09:05 | Outpatient (REF) | payer OTHER, SELFPAY ==
[2022-05-25 09:53] LABS: IDNOW Serial# 08D9AD1C
[2022-05-25 09:54] LABS: COVID-19 Test Positive (Negative)
== END 2022-05-25 09:06 | disposition home or self-care (01) ==
LOC: HO.LAB 09:05
PROVIDERS: Visit Provider Internal Medicine
DX: Z20.822 Contact with and (suspected) exposure to COVID-19 (principal)
CPT/HCPCS: 87635; C9803

== ENCOUNTER 2022-05-27 20:47 | Emergency (ER) | payer OTHER, SELFPAY ==
[2022-05-27 20:50] VITALS: BP 149/105; PULSE 112; RESP 18; TEMP 36.7; O2SAT 96; BMI 38.4
[2022-05-27 21:32] LABS: COVID-19 Test Negative (Negative); IDNOW Serial# 9DB6401D
[2022-05-27 21:53] VITALS: BP 138/72; PULSE 87; RESP 18; TEMP 37.2; O2SAT 92
[2022-05-27] MEDS: Acetaminophen 325 MG TABLET 975 MG PO (21:58)
[2022-05-27] MEDS: ondansetron HCL 4 MG/2 ML VIAL IVPUSH (21:58)
[2022-05-27] MEDS: 0.9 % Sodium Chloride 1,000 ML 999 ML IV ×2 (21:58→22:48)
[2022-05-27] MEDS: Ibuprofen 400 MG TABLET PO (21:58)
--- NOTE | 2022-05-27 22:02 | ED.GENADULT ---
HPI - General Adult General Chief complaint: Fever Stated complaint: vomiting,headache,diarrhea Time Seen by Provider: 05/27/22 21:25 Source: patient Mode of arrival: ambulatory History of Present Illness HPI narrative: 37-year-old female with history of COVID-19 infection on 05/18, and she now presents with onset nausea, vomiting, diarrhea after eating fast food. Patient states that she developed a headache after the nausea and vomiting and has associated chills but otherwise had been recovering from her COVID-19 infection. Related Data Home Medications Medication Instructions Recorded Confirmed fluconazole 150 mg tablet 150 mg PO Q3D 05/12/22 (Diflucan) Previous Rx's Medication Instructions Recorded ondansetron 4 mg disintegrating 4 mg PO TID PRN nausea and 09/13/21 tablet vomiting 5 days #10 tabs ibuprofen 400 mg tablet 400 mg PO Q6H PRN pain #20 tabs 12/07/21 cholecalciferol (vitamin D3) 50 50 mcg PO DAILY 90 days #90 caps 02/20/22 mcg (2,000 unit) capsule (Vitamin D3) ondansetron 4 mg disintegrating 4 mg PO Q6-8H PRN nausea and 04/24/22 tablet vomiting #15 tabs amitriptyline 25 mg tablet 25 mg PO BEDTIME 90 days #90 tabs 05/03/22 cyanocobalamin (vitamin B-12) 500 500 mcg sublingual DAILY 90 days 05/03/22 mcg disintegrating #90 tabs tablet,sublingual sumatriptan succinate 50 mg tablet 50 mg PO ONCE PRN migraine 05/03/22 headache 30 days #14 tabs Levoxyl 150 mcg tablet 150 mcg PO DAILY 30 days #90 tabs 05/23/22 (levothyroxine) ondansetron 4 mg disintegrating 4 mg PO Q8H PRN nausea and 05/27/22 tablet vomiting #7 tabs Allergies Allergy/AdvReac Type Severity Reaction Status Date / Time Penicillins Allergy Mild RASH Verified 05/12/22 09:19 penicillin V Allergy Unknown hives Verified 05/12/22 09:19 Review of Systems Review of Systems: Pertinent positives and negatives as stated in HPI 10 point review of systems is otherwise ne PMFSH Past Medical History Source: nursing notes reviewed Medical History Hypothyroidism Non-adherence to medical treatment Obesity Pernicious anemia Polyglandular autoimmune syndrome Premature ovarian failure Vitamin D deficiency Surgical History Hx of tubal ligation Family History Family History Father No problems noted. Mother Migraine headache Other Mental health disorder Substance use disorder Social History Social History Housing: Apartment Patient Tobacco Use Status: Never used Tobacco e-Cigarette/Vaping Use: Never Used Advance Directives: No Current occupational status: employed Cognitive needs: No Hearing needs: No Vision needs: No Physical Exam ED Vital Signs: Vital Signs - 24 hr 05/27/22 20:50 05/27/22 21:53 05/27/22 22:30 Temperature 98.1 F 98.9 F Pulse Rate 112 H 87 103 H Respiratory Rate 18 18 15 Blood Pressure 149/105 H 138/72 157/93 H Pulse Oximetry 96 92 94 Oxygen Delivery Method Room Air Room Air 05/27/22 22:50 Temperature 97.5 F Pulse Rate 95 Respiratory Rate 17 Blood Pressure 122/81 Pulse Oximetry 95 Oxygen Delivery Method Room Air BMI result Body Mass Index 38.4 VITAL SIGNS: Reviewed. GENERAL: Well developed, well nourished, in moderate distress. HEAD: Normocephalic/atraumatic EYES: PERRLA, EOMI EARS: Ext canals without abnormality, TMs non-bulging and non-erythematous NOSE: Nares patent bilateral OROPHARYNX: no oral lesions noted, posterior pharynx clear and non-erythematous without noted tonsillar enlargement/erythema/exudates NECK: Supple, no adenopathy LUNGS: Normal breath sounds. No adventitious sounds or accessory muscle use. SpO2<96> CARDIOVASCULAR: Regular rate and rhythm without noted murmurs ABDOMEN: Soft, non-tender, non-distended with bowel sounds. MUSCULOSKELETAL: No tenderness, deformities, or effusions noted on gross inspection. EXTREMITIES: No cyanosis, clubbing or edema. SKIN: Inspection of the skin reveals no rashes NEUROLOGIC: Alert and oriented x 4. Strength and sensation to light touch were grossly intact x 4. Course Course Course Narrative: 37-year-old female with history and clinical presentation consistent with suspected gastroenteritis, food poisoning as patient is now almost 10 days out [facility] Review of all investigations negative for acute findings and patient has received IV fluid hydration as well as antiemetics and is currently feeling much better and is tolerating oral intake. She is discharged home in stable condition. The leukocytosis that is observed is felt to be stress / reactive to patient's current nausea and vomiting. She is otherwise afebrile. Medical Decision Making Lab Data Result diagrams: 05/27/22 21:56 05/27/22 21:56 Labs: Lab Results 05/27/22 05/27/22 05/27/22 Range/Units 21:11 21:56 21:56 WBC 12.0 H (4.8-10.8) X10*3/uL RBC 5.21 (4.20-5.50) X10*6/uL Hgb 13.1 (12.0-16.0) g/dl Hct 40.5 (37.0-47.0) % MCV 77.7 L (80.0-98.0) fL MCH 25.1 L (27.0-33.0) pg MCHC 32.3 (31.0-35.0) g/dl RDW 15.1 (11.0-16.0) % Plt Count 339 (160-400) X10*3/uL MPV 10.6 (9.4-12.3) fL Immature Gran % (Auto) 0.4 (0.0-0.4) % Neut % (Auto) 79.9 H (45-73) % Lymph % (Auto) 14.0 L (20-40) % [place] % (Auto) 4.7 (2-11) % Eos % (Auto) 0.6 (0-4) % Baso % (Auto) 0.4 (0-2) % Lymph # (Auto) 1.7 (1.2-4.9) X10*3/uL [place] # (Auto) 0.6 (0.1-1.2) X10*3/uL Eos # (Auto) 0.1 (0.0-0.4) X10*3/uL Baso # (Auto) 0.1 (0.0-0.2) X10*3/uL Abs Immat Gran (auto) 0.05 H (0.00-0.03) X10*3/uL Absolute Neuts (auto) 9.6 H (2.0-8.3) x10*3/uL Absolute Nucleated RBC 0.000 (0.0-0.012) X10*3/uL Nucleated RBC % (auto) 0.0 (0.0-0.2) /100WBC Sodium 140 (135-145) mmol/L Potassium 4.1 (3.3-5.1) mmol/L Chloride 102 (96-108) mmol/L Carbon Dioxide 22 (22-29) mmol/L Anion Gap 20 (12-20) BUN 15 (9-16) mg/dL Creatinine 0.87 (0.5-1.4) mg/dL Estim Creat Clear Calc 94.3 Estimated GFR > 60 Random Glucose 109 (60-115) mg/dL Calcium 9.8 (8.4-10.2) mg/dL Total Bilirubin 0.4 (0.0-1.0) mg/dL AST 26 (5-31) U/L ALT 28 (0-31) U/L Alkaline Phosphatase 100 (39-117) U/L Total Protein 7.9 (6.5-8.0) g/dL Albumin 4.5 (3.5-5.0) g/dL Urine Test (NEGATIVE) COVID-19 ([facility]) Negative (Negative) COVID-19 Clin Com See Note 05/27/22 Range/Units 22:03 WBC (4.8-10.8) X10*3/uL RBC (4.20-5.50) X10*6/uL Hgb (12.0-16.0) g/dl Hct (37.0-47.0) % MCV (80.0-98.0) fL MCH (27.0-33.0) pg MCHC (31.0-35.0) g/dl RDW (11.0-16.0) % Plt Count (160-400) X10*3/uL MPV (9.4-12.3) fL Immature Gran % (Auto) (0.0-0.4) % Neut % (Auto) (45-73) % Lymph % (Auto) (20-40) % [place] % (Auto) (2-11) % Eos % (Auto) (0-4) % Baso % (Auto) (0-2) % Lymph # (Auto) (1.2-4.9) X10*3/uL [place] # (Auto) (0.1-1.2) X10*3/uL Eos # (Auto) (0.0-0.4) X10*3/uL Baso # (Auto) (0.0-0.2) X10*3/uL Abs Immat Gran (auto) (0.00-0.03) X10*3/uL Absolute Neuts (auto) (2.0-8.3) x10*3/uL Absolute Nucleated RBC (0.0-0.012) X10*3/uL Nucleated RBC % (auto) (0.0-0.2) /100WBC Sodium (135-145) mmol/L Potassium (3.3-5.1) mmol/L Chloride (96-108) mmol/L Carbon Dioxide (22-29) mmol/L Anion Gap (12-20) BUN (9-16) mg/dL Creatinine (0.5-1.4) mg/dL Estim Creat Clear Calc Estimated GFR Random Glucose (60-115) mg/dL Calcium (8.4-10.2) mg/dL Total Bilirubin (0.0-1.0) mg/dL AST (5-31) U/L ALT (0-31) U/L Alkaline Phosphatase (39-117) U/L Total Protein (6.5-8.0) g/dL Albumin (3.5-5.0) g/dL Urine Test NEGATIVE (NEGATIVE) COVID-19 ([facility]) (Negative) COVID-19 Clin Com Discharge Plan Discharge Clinical Impression: Gastroenteritis, Food poisoning Patient Disposition: Home, Self-Care Instructions: Gastroenteritis (ED), Food Poisoning (ED), Nutrition Tips for Relief of Diarrhea (ED) Additional Instructions: 1. Resume all home medications as prescribed. 2. Continue stay well hydrated with water 3. Follow-up with your primary care provider by calling the office on Sunday morning. Return to the ER for worsening symptoms Prescriptions: New ondansetron 4 mg tablet,disintegrating 4 mg PO Q8H PRN (Reason: nausea and vomiting) Qty: 7 0RF No Action cholecalciferol (vitamin D3) [Vitamin D3] 50 mcg (2,000 unit) capsule 50 mcg PO DAILY 90 Days Qty: 90 1RF levothyroxine [Levoxyl] 150 mcg tablet 150 mcg PO DAILY 30 Days Qty: 90 0RF ondansetron 4 mg tablet,disintegrating 4 mg PO Q6-8H PRN (Reason: nausea and vomiting) Qty: 15 0RF ondansetron 4 mg tablet,disintegrating 4 mg PO TID PRN (Reason: nausea and vomiting) 5 Days Qty: 10 0RF ibuprofen 400 mg tablet 400 mg PO Q6H PRN (Reason: pain) Qty: 20 0RF amitriptyline 25 mg tablet 25 mg PO BEDTIME 90 Days Qty: 90 0RF sumatriptan succinate 50 mg tablet 50 mg PO ONCE PRN (Reason: migraine headache) 30 Days Qty: 14 1RF Rx Instructions: take at onset of headache with one ibuprofen cyanocobalamin (vitamin B-12) 500 mcg tablet,disintegrating 500 mcg sublingual DAILY 90 Days Qty: 90 1RF fluconazole [Diflucan] 150 mg tablet 150 mg PO Q3D Rx Instructions: may repeat second dose 72 hrs after first dose if symptoms persist Referrals: Noble Bernardo MD [Primary Care Provider] -
[2022-05-27 22:09] LABS: MANUAL DIFF FLAG NO
[2022-05-27 22:13] LABS: Basophils Absolute Auto 0.1 X10*3/uL (0.0-0.2); Basophils Percent Auto 0.4 % (0-2); Eosinophils Absolute Auto 0.1 X10*3/uL (0.0-0.4); Eosinophils Percent Auto 0.6 % (0-4); Hematocrit 40.5 % (37.0-47.0); Hemoglobin 13.1 g/dl (12.0-16.0); Imm Gran Abs Auto 0.05 X10*3/uL (0.00-0.03); Imm Gran Pct Auto 0.4 % (0.0-0.4); Lymphocytes Absolute Auto 1.7 X10*3/uL (1.2-4.9); Mean Corpuscular HGB Conc 32.3 g/dl (31.0-35.0); Mean Corpuscular Hemoglobin 25.1 pg (27.0-33.0); Mean Corpuscular Volume 77.7 fL (80.0-98.0); Mean Platelet Volume 10.6 fL (9.4-12.3); Monocytes Absolute Auto 0.6 X10*3/uL (0.1-1.2); Monocytes Percent Auto 4.7 % (2-11); Neutrophils Absolute Auto 9.6 x10*3/uL (2.0-8.3); Neutrophils Percent Auto 79.9 % (45-73); Platelet Count 339 X10*3/uL (160-400); Red Blood Count 5.21 X10*6/uL (4.20-5.50); Red Cell Distribution Width 15.1 % (11.0-16.0)
[2022-05-27 22:13] LABS: Urine Pregnancy NEGATIVE (NEGATIVE)
[2022-05-27 22:14] LABS: UPreg QC Valid YES
[2022-05-27 22:30] VITALS: BP 157/93; PULSE 103; RESP 15; O2SAT 94
[2022-05-27 22:32] LABS: Alanine Aminotransferase 28 U/L (0-31); Albumin Level 4.5 g/dL (3.5-5.0); Alkaline Phosphatase 100 U/L (39-117); Anion Gap 20 (12-20); Aspartate Amino Transferase 26 U/L (5-31); Bilirubin Total 0.4 mg/dL (0.0-1.0); Blood Urea Nitrogen 15 mg/dL (9-16); Calcium 9.8 mg/dL (8.4-10.2); Carbon Dioxide 22 mmol/L (22-29); Chloride 102 mmol/L (96-108); Creatinine Clr Calc Pharmacy 94.3; Estimated Glomerular Filt Rate > 60; Glucose Random 109 mg/dL (60-115); Potassium 4.1 mmol/L (3.3-5.1); Sodium 140 mmol/L (135-145); Total Protein 7.9 g/dL (6.5-8.0)
[2022-05-27] MEDS: diphenhydrAMINE HCL 50 MG/ML VIAL 25 MG IVPUSH (22:46)
[2022-05-27] MEDS: Metoclopramide HCl 10 MG/2 ML VIAL IVPUSH (22:46)
[2022-05-27 22:50] VITALS: BP 122/81; PULSE 95; RESP 17; TEMP 36.4; O2SAT 95
== END 2022-05-28 00:05 | disposition home or self-care (01) ==
PROVIDERS: Emergency Provider Student in an Organized Health Care Education/Training Program; PCP Internal Medicine
DX: A05.9 Bacterial foodborne intoxication, unspecified (principal); Z20.822 Contact with and (suspected) exposure to COVID-19; R11.2 Nausea with vomiting, unspecified
CPT/HCPCS: 36415; 80053; 81025; 85025; 87635; 96361; 96374; 96375; 99284; J1200; J2405; J2765

== ENCOUNTER 2022-07-23 17:35 | Emergency (ER) | payer OTHER, SELFPAY ==
[2022-07-23 18:13] VITALS: BP 151/86; PULSE 83; RESP 18; TEMP 36.5; O2SAT 97; BMI 36.6
--- NOTE | 2022-07-23 18:13 | ED_ITS ---
HPI - General Adult General Chief complaint: Headache <DAY Burnett - Last Filed: 07/23/22 18:15> Stated complaint: High Blood Pressure/Vomiting/Diarrhea <DAY Burnett - Last Filed: 07/23/22 18:15> Time Seen by Provider: 07/23/22 21:22 <DAY Burnett - Last Filed: 07/23/22 18:15> Source: patient <DAY Burnett - Last Filed: 07/23/22 18:15> Mode of arrival: ambulatory <DAY Burnett - Last Filed: 07/23/22 18:15> Limitations: no limitations <DAY Burnett - Last Filed: 07/23/22 18:15> History of Present Illness HPI narrative: Patient has history of migraine headache on sumatriptan having headache for last 2 days has had with nausea and vomiting got worse for last few hours no fever no chills patient does have slight cold symptoms occasional cough <Fracisco Mcgregor MD - Last Filed: 07/23/22 23:23> Related Data Home medications: Home Medications Medication Instructions Recorded Confirmed fluconazole 150 mg tablet 150 mg PO Q3D 05/12/22 (Diflucan) Previous Rx's Medication Instructions Recorded ondansetron 4 mg disintegrating 4 mg PO TID PRN nausea and 09/13/21 tablet vomiting 5 days #10 tabs ibuprofen 400 mg tablet 400 mg PO Q6H PRN pain #20 tabs 12/07/21 cholecalciferol (vitamin D3) 50 50 mcg PO DAILY 90 days #90 caps 02/20/22 mcg (2,000 unit) capsule (Vitamin D3) ondansetron 4 mg disintegrating 4 mg PO Q6-8H PRN nausea and 04/24/22 tablet vomiting #15 tabs amitriptyline 25 mg tablet 25 mg PO BEDTIME 90 days #90 tabs 05/03/22 cyanocobalamin (vitamin B-12) 500 500 mcg sublingual DAILY 90 days 05/03/22 mcg disintegrating #90 tabs tablet,sublingual sumatriptan succinate 50 mg tablet 50 mg PO ONCE PRN migraine 05/03/22 headache 30 days #14 tabs Levoxyl 150 mcg tablet 150 mcg PO DAILY 30 days #90 tabs 05/23/22 (levothyroxine) ondansetron 4 mg disintegrating 4 mg PO Q8H PRN nausea and 05/27/22 tablet vomiting #7 tabs spcbplzdoy-pprvtzgqchocq-azwdeyvt 1 cap PO Q6H PRN headache #20 caps 07/23/22 50 mg-300 mg-40 mg capsule (Fioricet) diphenhydramine HCl 25 mg capsule 50 mg PO TID PRN headache #40 caps 07/23/22 (Benadryl) metoclopramide HCl 10 mg tablet 10 mg PO Q6H PRN nausea and 07/23/22 (Reglan) vomiting #30 tabs <DAY Burnett - Last Filed: 07/23/22 18:15> Allergies/adverse reactions: Allergies Allergy/AdvReac Type Severity Reaction Status Date / Time Penicillins Allergy Mild RASH Verified 05/12/22 09:19 penicillin V Allergy Unknown hives Verified 05/12/22 09:19 <DAY Burnett - Last Filed: 07/23/22 18:15> Review of Systems Review of Systems: Yes all other systems are reviewed and are negative <Fracisco Mcgregor MD - Last Filed: 07/23/22 23:23> [facility] Past Medical History Medical History: Medical History Hypothyroidism Non-adherence to medical treatment Obesity Pernicious anemia Polyglandular autoimmune syndrome Premature ovarian failure Vitamin D deficiency <DAY Burnett - Last Filed: 07/23/22 18:15> Surgical History: Surgical History Hx of tubal ligation <DAY Burnett - Last Filed: 07/23/22 18:15> Family History Family History: Family History Father No problems noted. Mother Migraine headache Other Mental health disorder Substance use disorder <DAY Burnett - Last Filed: 07/23/22 18:15> Social History Social History: Social History Housing: Apartment Patient Tobacco Use Status: Never used Tobacco e-Cigarette/Vaping Use: Never Used Advance Directives: No Advance Directives Information Provided: No Current occupational status: employed Cognitive needs: No Hearing needs: No Vision needs: No <DAY Burnett - Last Filed: 07/23/22 18:15> Physical Exam ED Vital Signs: Vital Signs - 24 hr 07/23/22 18:13 07/23/22 21:46 07/23/22 23:11 Temperature 97.7 F 98.1 F 98.1 F Pulse Rate 83 82 102 H Respiratory Rate 18 18 16 Blood Pressure 151/86 H 126/67 137/80 Pulse Oximetry 97 95 97 Oxygen Delivery Method Room Air Room Air Room Air BMI result Body Mass Index 36.6 <DAY Burnett - Last Filed: 07/23/22 18:15> Vital Signs - 24 hr 07/23/22 18:13 07/23/22 21:46 07/23/22 23:11 Temperature 97.7 F 98.1 F 98.1 F Pulse Rate 83 82 102 H Respiratory Rate 18 18 16 Blood Pressure 151/86 H 126/67 137/80 Pulse Oximetry 97 95 97 Oxygen Delivery Method Room Air Room Air Room Air BMI result Body Mass Index 36.6 <Fracisco Mcgregor MD - Last Filed: 07/23/22 23:23> Appearance: Alert. Oriented X3. No acute distress. Eyes: PERRLA, No Nystagmus ENT: Pharynx normal. Oral Mucosa moist no temporal artery tenderness Neck: Normal inspection. Neck supple. CVS: Normal heart rate and rhythm. Pulses normal. Respiratory: No respiratory distress. Equal air entry bilateral, no wheezing/r ales/rhonchi Abdomen: Soft and nontender. Bowel sounds are present, no mass palpable, Skin: Skin warm and dry. Normal skin color. Normal skin turgor. Extremities: No lower extremity edema. No calf tenderness Neuro: Oriented X 3. No motor deficit. <Fracisco Mcgregor MD - Last Filed: 07/23/22 23:23> Course Course Course Narrative: RME performed by Sivan Winkler PA-C. Patient is a 37 year old female presenting to the emergency department with nausea, vomiting, body aches, and diarrhea. CBC, CMP, COVID/Influenza/RSV swab ordered. Patient placed back in the waiting room pending results and bed availability. <DAY Burnett - Last Filed: 07/23/22 18:15> Medications Administered Discontinued Medications Generic Name Dose Route Start Last Admin Trade Name Freq PRN Reason Stop Dose Admin Diphenhydramine HCl 25 mg 07/23/22 21:41 07/23/22 21:50 Diphenhydramine Hcl 50 Mg/Ml Vial IVPUSH 07/23/22 21:42 25 mg ONCE ONE Administration Sodium Chloride 1,000 mls @ 999 mls/hr 07/23/22 21:41 07/23/22 23:13 Ns IV 07/23/22 22:41 Infused .Q1H1M ONE Infusion Ketorolac Tromethamine 30 mg 07/23/22 21:41 07/23/22 21:51 Ketorolac Tromethamine 30 Mg/Ml Vial IVPUSH 07/23/22 21:42 30 mg ONCE ONE Administration Metoclopramide HCl 10 mg 07/23/22 21:41 07/23/22 21:51 Metoclopramide Hcl 10 Mg/2 Ml Vial IVPUSH 07/23/22 21:42 10 mg ONCE ONE Administration Ondansetron HCl 4 mg 07/23/22 18:23 07/23/22 18:25 Ondansetron Odt 4 Mg Tab.Rapdis TRANSLINGU 07/23/22 18:24 4 mg ONCE ONE Administration <DAY Burnett - Last Filed: 07/23/22 18:15> Medications Administered Discontinued Medications Generic Name Dose Route Start Last Admin Trade Name Isamar PRN Reason Stop Dose Admin Diphenhydramine HCl 25 mg 07/23/22 21:41 07/23/22 21:50 Diphenhydramine Hcl 50 Mg/Ml Vial IVPUSH 07/23/22 21:42 25 mg ONCE ONE Administration Sodium Chloride 1,000 mls @ 999 mls/hr 07/23/22 21:41 07/23/22 23:13 Ns IV 07/23/22 22:41 Infused .Q1H1M ONE Infusion Ketorolac Tromethamine 30 mg 07/23/22 21:41 07/23/22 21:51 Ketorolac Tromethamine 30 Mg/Ml Vial IVPUSH 07/23/22 21:42 30 mg ONCE ONE Administration Metoclopramide HCl 10 mg 07/23/22 21:41 07/23/22 21:51 Metoclopramide Hcl 10 Mg/2 Ml Vial IVPUSH 07/23/22 21:42 10 mg ONCE ONE Administration Ondansetron HCl 4 mg 07/23/22 18:23 07/23/22 18:25 Ondansetron Odt 4 Mg Tab.Rapdis TRANSLINGU 07/23/22 18:24 4 mg ONCE ONE Administration <Fracisco Mcgregor MD - Last Filed: 07/23/22 23:23> Medical Decision Making MDM Narrative Medical decision making narrative: Patient with left-sided migraine headache improved after Benadryl Reglan and Toradol labs are stable blood pressure improved discharge patient home <Fracisco Mcgregor MD - Last Filed: 07/23/22 23:23> Lab Data Lab results reviewed: Yes I reviewed the patient's lab results. <Fracisco Mcgregor MD - Last Filed: 07/23/22 23:23> Result diagrams: : 07/23/22 18:21 07/23/22 18:21 <DAY Burnett - Last Filed: 07/23/22 18:15> Labs: Lab Results 07/23/22 07/23/22 07/23/22 Range/Units 18:21 18:21 18:24 WBC 8.8 (4.8-10.8) X10*3/uL RBC 5.45 (4.20-5.50) X10*6/uL Hgb 13.7 (12.0-16.0) g/dl Hct 42.7 (37.0-47.0) % MCV 78.3 L (80.0-98.0) fL MCH 25.1 L (27.0-33.0) pg MCHC 32.1 (31.0-35.0) g/dl RDW 14.5 (11.0-16.0) % Plt Count 370 (160-400) X10*3/uL MPV 10.8 (9.4-12.3) fL Immature Gran % (Auto) 0.3 (0.0-0.4) % Neut % (Auto) 67.4 (45-73) % Lymph % (Auto) 23.3 (20-40) % Tompkins % (Auto) 6.5 (2-11) % Eos % (Auto) 1.8 (0-4) % Baso % (Auto) 0.7 (0-2) % Lymph # (Auto) 2.0 (1.2-4.9) X10*3/uL Tompkins # (Auto) 0.6 (0.1-1.2) X10*3/uL Eos # (Auto) 0.2 (0.0-0.4) X10*3/uL Baso # (Auto) 0.1 (0.0-0.2) X10*3/uL Abs Immat Gran (auto) 0.03 (0.00-0.03) X10*3/uL Absolute Neuts (auto) 5.9 (2.0-8.3) x10*3/uL Absolute Nucleated RBC 0.000 (0.0-0.012) X10*3/uL Nucleated RBC % (auto) 0.0 (0.0-0.2) /100WBC Sodium 141 (135-145) mmol/L Potassium 4.5 (3.3-5.1) mmol/L Chloride 104 (96-108) mmol/L Carbon Dioxide 26 (22-29) mmol/L Anion Gap 16 (12-20) BUN 11 (9-16) mg/dL Creatinine 0.80 (0.5-1.4) mg/dL Estim Creat Clear Calc 99.8 Estimated GFR > 60 Random Glucose 95 (60-115) mg/dL Calcium 10.0 (8.4-10.2) mg/dL Magnesium 2.2 (1.6-2.6) mg/dL Total Bilirubin 0.4 (0.0-1.0) mg/dL AST 24 (5-31) U/L ALT 27 (0-31) U/L Alkaline Phosphatase 96 (39-117) U/L Total Protein 7.8 (6.5-8.0) g/dL Albumin 4.5 (3.5-5.0) g/dL Influenza Type A (PCR) NEGATIVE (Negative) Influenza Type B (PCR) NEGATIVE (Negative) RSV RNA Qual (PCR) NEGATIVE (Negative) SARS-CoV-2 RNA (RT-PCR) NEGATIVE (Negative) <DAY Burnett - Last Filed: 07/23/22 18:15> Lab Results 07/23/22 07/23/22 07/23/22 Range/Units 18:21 18:21 18:24 WBC 8.8 (4.8-10.8) X10*3/uL RBC 5.45 (4.20-5.50) X10*6/uL Hgb 13.7 (12.0-16.0) g/dl Hct 42.7 (37.0-47.0) % MCV 78.3 L (80.0-98.0) fL MCH 25.1 L (27.0-33.0) pg MCHC 32.1 (31.0-35.0) g/dl RDW 14.5 (11.0-16.0) % Plt Count 370 (160-400) X10*3/uL MPV 10.8 (9.4-12.3) fL Immature Gran % (Auto) 0.3 (0.0-0.4) % Neut % (Auto) 67.4 (45-73) % Lymph % (Auto) 23.3 (20-40) % Tompkins % (Auto) 6.5 (2-11) % Eos % (Auto) 1.8 (0-4) % Baso % (Auto) 0.7 (0-2) % Lymph # (Auto) 2.0 (1.2-4.9) X10*3/uL Tompkins # (Auto) 0.6 (0.1-1.2) X10*3/uL Eos # (Auto) 0.2 (0.0-0.4) X10*3/uL Baso # (Auto) 0.1 (0.0-0.2) X10*3/uL Abs Immat Gran (auto) 0.03 (0.00-0.03) X10*3/uL Absolute Neuts (auto) 5.9 (2.0-8.3) x10*3/uL Absolute Nucleated RBC 0.000 (0.0-0.012) X10*3/uL Nucleated RBC % (auto) 0.0 (0.0-0.2) /100WBC Sodium 141 (135-145) mmol/L Potassium 4.5 (3.3-5.1) mmol/L Chloride 104 (96-108) mmol/L Carbon Dioxide 26 (22-29) mmol/L Anion Gap 16 (12-20) BUN 11 (9-16) mg/dL Creatinine 0.80 (0.5-1.4) mg/dL Estim Creat Clear Calc 99.8 Estimated GFR > 60 Random Glucose 95 (60-115) mg/dL Calcium 10.0 (8.4-10.2) mg/dL Magnesium 2.2 (1.6-2.6) mg/dL Total Bilirubin 0.4 (0.0-1.0) mg/dL AST 24 (5-31) U/L ALT 27 (0-31) U/L Alkaline Phosphatase 96 (39-117) U/L Total Protein 7.8 (6.5-8.0) g/dL Albumin 4.5 (3.5-5.0) g/dL Influenza Type A (PCR) NEGATIVE (Negative) Influenza Type B (PCR) NEGATIVE (Negative) RSV RNA Qual (PCR) NEGATIVE (Negative) SARS-CoV-2 RNA (RT-PCR) NEGATIVE (Negative) <Fracisco Mcgregor MD - Last Filed: 07/23/22 23:23> Discharge Plan Discharge Clinical Impression: Migraine <DAY Burnett - Last Filed: 07/23/22 18:15> Patient Disposition: Home, Self-Care <DAY Burnett - Last Filed: 07/23/22 18:15> Instructions: Migraine Headache (ED) <DAY Burnett - Last Filed: 07/23/22 18:15> Additional Instructions: Take medication as prescribed and follow with PCP <DAY Burnett - Last Filed: 07/23/22 18:15> Prescriptions: New fikstdnpuf-tekxzispigpwm-yzps [Fioricet] 50-300-40 mg capsule 1 cap PO Q6H PRN (Reason: headache) Qty: 20 0RF metoclopramide HCl [Reglan] 10 mg tablet 10 mg PO Q6H PRN (Reason: nausea and vomiting) Qty: 30 0RF diphenhydramine HCl [Benadryl] 25 mg capsule 50 mg PO TID PRN (Reason: headache) Qty: 40 0RF No Action cholecalciferol (vitamin D3) [Vitamin D3] 50 mcg (2,000 unit) capsule 50 mcg PO DAILY 90 Days Qty: 90 1RF levothyroxine [Levoxyl] 150 mcg tablet 150 mcg PO DAILY 30 Days Qty: 90 0RF ondansetron 4 mg tablet,disintegrating 4 mg PO Q6-8H PRN (Reason: nausea and vomiting) Qty: 15 0RF ondansetron 4 mg tablet,disintegrating 4 mg PO Q8H PRN (Reason: nausea and vomiting) Qty: 7 0RF ondansetron 4 mg tablet,disintegrating 4 mg PO TID PRN (Reason: nausea and vomiting) 5 Days Qty: 10 0RF ibuprofen 400 mg tablet 400 mg PO Q6H PRN (Reason: pain) Qty: 20 0RF amitriptyline 25 mg tablet 25 mg PO BEDTIME 90 Days Qty: 90 0RF sumatriptan succinate 50 mg tablet 50 mg PO ONCE PRN (Reason: migraine headache) 30 Days Qty: 14 1RF Rx Instructions: take at onset of headache with one ibuprofen cyanocobalamin (vitamin B-12) 500 mcg tablet,disintegrating 500 mcg sublingual DAILY 90 Days Qty: 90 1RF fluconazole [Diflucan] 150 mg tablet 150 mg PO Q3D Rx Instructions: may repeat second dose 72 hrs after first dose if symptoms persist <DAY Burnett - Last Filed: 07/23/22 18:15> Interventions: ED Discharge Assessment Last Done: 07/23/22 23:18 <DAY Burnett - Last Filed: 07/23/22 18:15> Discharge Date/Time: 07/23/22 23:18 <DAY Burnett - Last Filed: 07/23/22 18:15>
[2022-07-23] MEDS: Ondansetron ODT 4 MG TAB.RAPDIS TRANSLINGU (18:25)
[2022-07-23 18:28] LABS: MANUAL DIFF FLAG NO
[2022-07-23 18:29] LABS: Basophils Absolute Auto 0.1 X10*3/uL (0.0-0.2); Basophils Percent Auto 0.7 % (0-2); Eosinophils Absolute Auto 0.2 X10*3/uL (0.0-0.4); Eosinophils Percent Auto 1.8 % (0-4); Hematocrit 42.7 % (37.0-47.0); Hemoglobin 13.7 g/dl (12.0-16.0); Imm Gran Abs Auto 0.03 X10*3/uL (0.00-0.03); Imm Gran Pct Auto 0.3 % (0.0-0.4); Lymphocytes Percent Auto 23.3 % (20-40); Mean Corpuscular HGB Conc 32.1 g/dl (31.0-35.0); Mean Corpuscular Hemoglobin 25.1 pg (27.0-33.0); Mean Corpuscular Volume 78.3 fL (80.0-98.0); Mean Platelet Volume 10.8 fL (9.4-12.3); Monocytes Absolute Auto 0.6 X10*3/uL (0.1-1.2); Monocytes Percent Auto 6.5 % (2-11); Neutrophils Absolute Auto 5.9 x10*3/uL (2.0-8.3); Neutrophils Percent Auto 67.4 % (45-73); Platelet Count 370 X10*3/uL (160-400); Red Blood Count 5.45 X10*6/uL (4.20-5.50); Red Cell Distribution Width 14.5 % (11.0-16.0); White Blood Count 8.8 X10*3/uL (4.8-10.8)
[2022-07-23 18:44] LABS: Alanine Aminotransferase 27 U/L (0-31); Albumin Level 4.5 g/dL (3.5-5.0); Alkaline Phosphatase 96 U/L (39-117); Anion Gap 16 (12-20); Aspartate Amino Transferase 24 U/L (5-31); Bilirubin Total 0.4 mg/dL (0.0-1.0); Blood Urea Nitrogen 11 mg/dL (9-16); Carbon Dioxide 26 mmol/L (22-29); Chloride 104 mmol/L (96-108); Creatinine Clr Calc Pharmacy 99.8; Estimated Glomerular Filt Rate > 60; Glucose Random 95 mg/dL (60-115); Magnesium 2.2 mg/dL (1.6-2.6); Potassium 4.5 mmol/L (3.3-5.1); Sodium 141 mmol/L (135-145); Total Protein 7.8 g/dL (6.5-8.0)
[2022-07-23 19:06] LABS: Influenza A PCR NEGATIVE (Negative); Influenza B PCR NEGATIVE (Negative); Resp Syncy Virus RNA Qual PCR NEGATIVE (Negative); SARS COV2 PCR INHOUSE NEGATIVE (Negative)
--- OUTSIDE RECORDS SUMMARY | 2022-07-23 21:26 | XMS_ITS | Continuity of Care Document ---
:1985 Author Organization [facility] Address [address] [place] [address], [address] [place] [id number]- Care Team Providers Name Role Phone Az CHAHAL, Asma Primary Care Physician [place] [facility] Date(s): 03/01/22 - 03/31/22 [facility] [address] [place] [id number] Attending Physician: Mike Sanchez Admitting Physician: Mike Sanchez Referring Physician: AdmMike paula Allergies, Adverse Reactions, Alerts Substance Reaction Severity Status ciprofloxacin Active penicillins Active Medications Aviane 100 mcg-20 mcg oral tablet 1 tablet, By Mouth, Daily, take continuously take 21 days of active tablets then skip placebos and start the next pack, # 84 tablet, 2 Refills, Maintenance, 03/01/22 17:36:00 EDT, Tablet, [id number], Partial fill upon patient request if the... Start Date: 03/01/22 Status: Orderedfluconazole 150 mg oral tablet 1 tablet = 150 mg, By Mouth, Once, take on tablet now and one tablet in 48hrs, # 1 tablet, 1 Refills, Soft Stop, 11/25/21 14:10:00 EDT, Tablet, [id number], Partial fill upon patient request if the prescription is for a schedule II opioid drug. Start Date: 11/25/21 Status: Orderedlevothyroxine 0.2 mg oral tablet 1 tablet = 200 mcg, By Mouth, Daily, # 30 tablet, 0 Refills, Maintenance, 02/24/16 10:05:26, Tablet Start Date: 02/24/16 Status: OrderedTylenol Caplet = 650 mg, By Mouth, Every 4 hours, 0 Refills, Maintenance, 03/13/17 10:12:03 Start Date: 03/13/17 Status: OrderedVitamin B-12 1000 mcg oral tablet 1,000 mcg, 1, tablet, By Mouth, Daily, # 30 tablet, Refills 0, Maintenance, 01/20/22 10:02:00 EDT, Partial fill upon patient request if the prescription is for a schedule II opioid drug. Start Date: 01/20/22 Status: OrderedVitamin D 42615 iu oral capsule 1, capsule, By Mouth, Every week, # 30 capsule, Refills 0, Maintenance, 01/20/22 10:02:00 EDT, Partial fill upon patient request if the prescription is for a schedule II opioid drug. Start Date: 01/20/22 Status: OrderedZofran 8 mg oral tablet 1 tablet = 8 mg, By Mouth, Every 8 hours, PRN Nausea & Vomiting, # 10 tablet, 0 Refills, Maintenance, 08/11/21 14:02:00 EST, Tablet, [facility] #[id number], Partial fill upon patient request if the prescription is for a schedule II opioid drug. Start Date: 08/11/21 Status: Ordered Problem List Condition Effective Dates Status Health Status Informant Hypothyroid(Confirmed) Active Obese class II(Confirmed) Active Breast pain in female(Confirmed) Active Social History Social History Type Response Smoking Status Never smoker entered on: 06/20/17 Sex
--- OUTSIDE RECORDS SUMMARY | 2022-07-23 21:26 | XMS_ITS | Continuity of Care Document ---
:1985 Author Organization [facility] Address [address] [place] [address]- Care Team Providers Name Role Phone Az CHAHAL, Noble Primary Care Phys[id number] - 08/18/21 [facility] [address] [place] [address]- Encounter Diagnosis Migraine headache (Discharge Diagnosis) - 08/11/21 Attending Physician: Brenda Najera MD Referring Physician: Noble Bernardo MD Allergies, Adverse Reactions, Alerts Substance Reaction Severity Status ciprofloxacin Active penicillins Active Medications fluconazole 150 mg oral tablet 1 tablet = 150 mg, By Mouth, Once, take on tablet now and one tablet in 48hrs, # 2 tablet, 1 Refills, Soft Stop, 12/23/20 16:49:00 EDT, Tablet, [id number], Partial fill upon patient request if the prescription is for a schedule II opioid drug. Start Date: 12/23/20 Status: Orderedlevothyroxine 0.2 mg oral tablet 1 tablet = 200 mcg, By Mouth, Daily, # 30 tablet, 0 Refills, Maintenance, 02/24/16 10:05:26, Tablet Start Date: 02/24/16 Status: Orderednaproxen 500 mg oral tablet 1 tablet = 500 mg, By Mouth, 2 times a day, PRN Pain , Moderate, for 14 days, with food, # 30 tablet, 0 Refills, Acute 08/25/21 14:02:00 EST, 08/11/21 14:02:00 EST, Tablet, [id number], Partial fill upon patient request if the prescription is f... Start Date: 08/11/21 Stop Date: 08/25/21 Status: OrderedTylenol Caplet = 650 mg, By Mouth, Every 4 hours, 0 Refills, Maintenance, 03/13/17 10:12:03 Start Date: 03/13/17 Status: OrderedZofran 8 mg oral tablet 1 tablet = 8 mg, By Mouth, Every 8 hours, PRN Nausea & Vomiting, # 10 tablet, 0 Refills, Maintenance, 08/11/21 14:02:00 EST, Tablet, [facility]/pharmacy #[id number], Partial fill upon patient request if the prescription is for a schedule II opioid drug. Start Date: 08/11/21 Status: Ordered Problem List Condition Effective Dates Status Health Status Informant Hypothyroid(Confirmed) Active Breast pain in female(Confirmed) Active Diagnosis Diagnosis Type Effective Dates Health Status Clinical In formant Service Migraine Discharge 08/11/21 headache Diagnosis Social History Social History Type Response Smoking Status Never smoker entered on: 06/20/17 Sex
--- OUTSIDE RECORDS SUMMARY | 2022-07-23 21:26 | XMS_ITS | Continuity of Care Document ---
:1985 Author Organization [facility] Address [address] [place] [address], [address] [place] [id number]- Care Team Providers Name Role Phone Az CHAHAL, Asma Primary Care Physician En[place] [facility] Date(s): 01/26/22 - 05/26/22 [facility] [address] [place] [id number] Attending Physician: Not on Staff, Attending MD Referring Physician: Payton Montes Allergies, Adverse Reactions, Alerts Substance Reaction Severity Status ciprofloxacin Active penicillins Active Medications Aviane 100 mcg-20 mcg oral tablet 1 tablet, By Mouth, Daily, take continuously take 21 days of active tablets then skip placebos and start the next pack, # 84 tablet, 2 Refills, Maintenance, 03/01/22 17:36:00 EDT, Tablet, [facility]/pharmacy #[id number], Partial fill upon patient request if [...] drug. Start Date: 01/20/22 Status: OrderedVitamin D 79856 iu oral capsule 1, capsule, By Mouth, [...] 0 Refills, Maintenance, 08/11/21 14:02:00 EST, Tablet, [facility]/pharmacy #[id number], Partial fill upon patient request if the prescription is for a schedule II opioid drug. Start Date: 08/11/21 Status: Ordered Problem List Condition Confirmation Course Effective Dates Status Health Stat us Informant Hypothyroid Confirmed Active Obese class II Confirmed Active Breast pain in Confirmed Active female Social History Social History Type Response Smoking Status Never smoker entered on: 06/20/17 Sex Patient Care team information PersonnelName: Az CHAHAL, [facility] Address: Address: [address] [place] [address]
--- OUTSIDE RECORDS SUMMARY | 2022-07-23 21:26 | XMS_ITS | Continuity of Care Document ---
:1985 Author Organization [facility] Address [address] [place] [address], [address] [place] [id number]- Care Team Providers Name Role Phone Az CHAHAL, Asma Primary Care Physician Encounter [facility] Date(s): 04/26/22 - 05/26/22 [facility] [address] [place] [id number] Attending Physician: Mike Sanchez Admitting Physician: Mike Sanchez Referring Physician: Mike Sanchez Allergies, Adverse Reactions, Alerts Substance Reaction Severity [...] drug. Start Date: 01/20/22 Status: OrderedVitamin D 01612 iu oral capsule 1, capsule, By Mouth, [...] 0 Refills, Maintenance, 08/11/21 14:02:00 EST, Tablet, [facility]/pharmacy #[id number], Partial fill upon patient request if [...] Patient Care team information PersonnelName: Az CHAHAL, Asma Address: Address: [address] [place] [address]
--- OUTSIDE RECORDS SUMMARY | 2022-07-23 21:26 | XMS_ITS | Continuity of Care Document ---
:1985 Author Organization [facility] Address [address] [place] [id number]- Care Team Providers Name Role Phone Az CHAHAL, Asma Primary Care Phys[id number]20 - 12[facility]30/20 [facility] [address] [id number] Attending Physician: Riana CHAHAL, Kenia Garvey Referring Physician: Not on Staff, Referring MD Allergies, Adverse Reactions, Alerts Substance Reaction Severity Status ciprofloxacin Active penicillins Active Medications fluconazole 150 mg oral tablet 1 tablet = 150 mg, By Mouth, Once, take on tablet now and one tablet in 48hrs, # 2 tablet, 1 Refills, Soft Stop, 12/23/20 16:49:00 EDT, Tablet, [facility]/pharmacy #[id number], Partial fill upon patient request if the [...] Maintenance, 03/13/17 10:12:03 Start Date: 03/13/17 Status: Ordered Problem List Condition Effective Dates Status Health Status Informant Hypothyroid(Confirmed) Active Breast pain in female(Confirmed) Active Social History Social History Type Response Smoking Status Never smoker entered on: 06/20/17 Sex
--- OUTSIDE RECORDS SUMMARY | 2022-07-23 21:26 | XMS_ITS | Continuity of Care Document ---
:1985 Author Organization [facility] Address [address] [place] [address]- Care Team Providers Name Role Phone Az CHAHAL, Asma Primary Care Phys[id number] 08/11/21 - 09/10/21 [facility] [address] [place], [place] [address] Attending Physician: Mike Sanchez Admitting Physician: AdmMike paula Referring Physician: AdmtrMike Allergies, Adverse Reactions, Alerts Substance Reaction Severity [...] 0 Refills, Maintenance, 08/11/21 14:02:00 EST, Tablet, [id number], Partial fill upon patient request if the prescription is for a schedule II opioid drug. Start Date: 08/11/21 Status: Ordered Problem List Condition Effective Dates Status Health Status Informant Hypothyroid(Confirmed) Active Breast pain in female(Confirmed) Active Social History Social History Type Response Smoking Status Never smoker entered on: 06/20/17 Sex
--- OUTSIDE RECORDS SUMMARY | 2022-07-23 21:26 | XMS_ITS | Continuity of Care Document ---
:1985 Author Organization [facility] Address [address] [place] [address], [address] [place] [id number]- Care Team Providers Name Role Phone Az CHAHAL, Asma Primary Care Physician [place] [facility] [place] 11/25/21 - 12/25/21 [facility] [employer] [address] [address] Allergies, Adverse Reactions, Alerts Substance Reaction Severity [...]
--- OUTSIDE RECORDS SUMMARY | 2022-07-23 21:26 | XMS_ITS | Continuity of Care Document ---
:1985 Author Organization [facility] [employer] [facility] Address [address] [place] [address], [address] [place] [id number]- Care Team Providers Name Role Phone Az CHAHAL, Asma Primary Care Physician Encounter [facility] Date(s): 03/01/22 - 03/08/22 [facility] [place] [employer] [address] [address]- Attending Physician: Anup Ho MD Referring Physician: Payton Montes Allergies, Adverse Reactions, Alerts Substance Reaction Severity Status ciprofloxacin Active penicillins Active Medications Aviane 100 mcg-20 mcg oral tablet 1 tablet, By Mouth, Daily, take continuously take 21 days of active tablets then skip placebos and start the next pack, # 84 tablet, 2 Refills, Maintenance, 03/01/22 17:36:00 EDT, Tablet, [facility]/pharmacy #[id number], Partial fill upon patient request [...] drug. Start Date: 01/20/22 Status: OrderedVitamin D 53677 iu oral capsule 1, capsule, By Mouth, [...] 0 Refills, Maintenance, 08/11/21 14:02:00 EST, Tablet, [facility]/pharmacy #[id number], Partial fill upon patient request if the prescription is for a schedule II opioid drug. Start Date: 08/11/21 Status: Ordered Problem List Condition Effective Dates Status Health Status Informant Hypothyroid(Confirmed) Active Obese class II(Confirmed) Active Breast pain in female(Confirmed) Active Social History Social History Type Response Smoking Status Never smoker entered on: 06/20/17 Sex
--- OUTSIDE RECORDS SUMMARY | 2022-07-23 21:26 | XMS_ITS | Continuity of Care Document ---
:1985 Author Organization [facility] [employer] [facility] Address [address] [place] [address], [address] [place] [id number]- Care Team Providers Name Role Phone Az CHAHAL, Noble Primary Care Phys[id number] Date(s): 01/20/22 - 01/27/22 [facility] [place] [employer] [address], [address] [place] [id number] Attending Physician: Not on Staff, Attending MD Referring Physician: Noble Bernardo MD Allergies, Adverse Reactions, Alerts Substance Reaction Severity Status ciprofloxacin Active penicillins Active Medications fluconazole 150 mg oral tablet 1 tablet = 150 mg, By Mouth, Once, take on tablet now and one tablet in 48hrs, # 1 tablet, 1 Refills, Soft Stop, 11/25/21 14:10:00 EDT, Tablet, [facility]/pharmacy #[id number], Partial fill upon patient request if [...] drug. Start Date: 01/20/22 Status: OrderedVitamin D 81847 iu oral capsule 1, capsule, By Mouth, [...] II(Confirmed) Active Breast pain in female(Confirmed) Active Vital Signs Most recent to oldest [Reference Range]: 1 Height 160 cm (01/20/22 10:00 AM) Weight 96.2 kg (01/20/22 10:00 AM) Pulse Rate [55-90 bpm] 105 bpm *H* (01/20/22 10:00 AM) Body Mass Index [18.5-24.99] 37.58 *>HHI* (01/20/22 10:00 AM) Blood Pressure [90-138/55-84 mm Hg] 125/60 mm Hg (01/20/22 10:00 AM) Blood pressure sites Arm, right (01/20/22 10:00 AM) Dry Weight 96.2 kg (01/20/22 10:00 AM) Weight Obtained Via Standing scale (01/20/22 10:00 AM) Dry Weight Obtained Via Standing scale (01/20/22 10:00 AM) Social History Social History Type Response Smoking Status Never smoker entered on: 06/20/17 Sex
--- OUTSIDE RECORDS SUMMARY | 2022-07-23 21:26 | XMS_ITS | Continuity of Care Document ---
:1985 Author Organization [facility] Address [address] [place] [address], [address] [place] [id number]- Care Team Providers Name Role Phone Az CHAHAL, Asma Primary Care Physician [id number]14[facility]22 - 07/21/22 [facility] [address] [place] [address], [address] [place] [id number] Attending Physician: Kenia Mayers MD Allergies, Adverse Reactions, Alerts Substance Reaction Severity Status ciprofloxacin Active penicillins Active Medications Aviane 100 mcg-20 mcg oral tablet 1 tablet, By Mouth, Daily, take continuously take 21 days of active tablets then skip placebos and start the next pack, # 84 tablet, 2 Refills, Maintenance, 03/01/22 17:36:00 EDT, Tablet, [facility]/pharmacy #[id number], Partial fill upon patient request if the... Start Date: 03/01/22 Status: Orderedfluconazole 150 mg oral tablet 1 tablet = 150 mg, By Mouth, Once, take on tablet now and one tablet in 48hrs, # 1 tablet, 1 Refills, Soft Stop, 11/25/21 14:10:00 EDT, Tablet, [facility]/pharmacy #[id number], Partial fill upon patient [...] drug. Start Date: 01/20/22 Status: OrderedVitamin D 89179 iu oral capsule 1, capsule, By Mouth, [...] on: 06/20/17 Sex Patient Care team information Care Team PersonnelName: Az CHAHAL, Noble Position: [facility] Physician (General Medicine) Member Role: PCP Address: Address: [facility] [place] [address]- Care Team Related PersonsName: MARCIAL DAI Address: [address] [address]
--- OUTSIDE RECORDS SUMMARY | 2022-07-23 21:26 | XMS_ITS | Continuity of Care Document ---
:1985 Author Organization [facility] Address [address] [place] [id number]- Care Team Providers Name Role Phone Az CHAHAL, Asma Primary Care Physician [id number] Date(s): 12/23/20 - 01/22/21 [facility] [employer] [facility] [address] [place] [id number] Attending Physician: Mike Sanchez Admitting Physician: Mike Sanchez Referring Physician: AdmtrMike Allergies, Adverse Reactions, Alerts Substance Reaction Severity Status ciprofloxacin Active penicillins Active Medications fluconazole 150 mg oral tablet 1 tablet = 150 mg, By Mouth, Once, take on tablet now and one tablet in 48hrs, # 2 tablet, 1 Refills, Soft Stop, 12/23/20 16:49:00 EDT, Tablet, [facility]/pharmacy #[id number], Partial fill upon patient request if the [...]
[2022-07-23 21:46] VITALS: BP 126/67; PULSE 82; RESP 18; TEMP 36.7; O2SAT 95
[2022-07-23] MEDS: diphenhydrAMINE HCL 50 MG/ML VIAL 25 MG IVPUSH (21:50)
[2022-07-23] MEDS: Metoclopramide HCl 10 MG/2 ML VIAL IVPUSH (21:51)
[2022-07-23] MEDS: Ketorolac Tromethamine 30 MG/ML VIAL IVPUSH (21:51)
[2022-07-23] MEDS: 0.9 % Sodium Chloride 1,000 ML 999 ML IV (21:52)
[2022-07-23 23:11] VITALS: BP 137/80; PULSE 102; RESP 16; TEMP 36.7; O2SAT 97
--- NOTE | 2022-07-23 23:11 | PC.NURSE ---
Pt reports relieve for headache pt is at 0/10 pain. Pt requesting to go home, notified.
== END 2022-07-23 23:18 | disposition home or self-care (01) ==
PROVIDERS: Physician Assistant Medical; Emergency Provider Internal Medicine; PCP Internal Medicine
DX: G43.909 Migraine, unspecified, not intractable, without status migrainosus (principal); R05.9 Cough, unspecified; Z20.822 Contact with and (suspected) exposure to COVID-19; Z79.899 Other long term (current) drug therapy
CPT/HCPCS: 0241U; 80053; 83735; 85025; 96374; 96375; 99284; J1200; J1885; J2765

== ENCOUNTER 2022-08-20 17:27 | Emergency (ER) | payer OTHER, SELFPAY ==
[2022-08-20 17:35] VITALS: BP 141/88; PULSE 98; RESP 18; TEMP 36.8; O2SAT 98; BMI 36.6
--- NOTE | 2022-08-20 18:53 | ED.NAVMDI ---
HPI - Nausea/Vomiting/Diarrhea General Chief complaint: Nausea/Vomiting/Diarrhea Stated complaint: vomit, chest pain, diarrhea, high blood pressure Time Seen by Provider: 08/20/22 18:46 Source: patient and family Mode of arrival: ambulatory Limitations: no limitations History of Present Illness HPI Narrative: 37 yo female with history of migraines presents with nausea, vomiting, headache starting this afternoon unrelieved with patient taking Benadryl, Fioricet, Reglan at home. Patient reports this feels typical to her migraine. Also having some photophobia. No phonophobia, diarrhea, abdominal pain, chest pain, shortness of breath. No fevers or chills. Associated nausea: Yes Related Data Home Medications Medication Instructions Recorded Confirmed fluconazole 150 mg tablet 150 mg PO Q3D 05/12/22 (Diflucan) Previous Rx's Medication Instructions Recorded ondansetron 4 mg disintegrating 4 mg PO TID PRN nausea and 09/13/21 tablet vomiting 5 days #10 tabs ibuprofen 400 mg tablet 400 mg PO Q6H PRN pain #20 tabs 12/07/21 cholecalciferol (vitamin D3) 50 50 mcg PO DAILY 90 days #90 caps 02/20/22 mcg (2,000 unit) capsule (Vitamin D3) ondansetron 4 mg disintegrating 4 mg PO Q6-8H PRN nausea and 04/24/22 tablet vomiting #15 tabs cyanocobalamin (vitamin B-12) 500 500 mcg sublingual DAILY 90 days 05/03/22 mcg disintegrating #90 tabs tablet,sublingual sumatriptan succinate 50 mg tablet 50 mg PO ONCE PRN migraine 05/03/22 headache 30 days #14 tabs Levoxyl 150 mcg tablet 150 mcg PO DAILY 30 days #90 tabs 05/23/22 (levothyroxine) ondansetron 4 mg disintegrating 4 mg PO Q8H PRN nausea and 05/27/22 tablet vomiting #7 tabs ckwrlqhnos-zatwzxxqqcazd-hmgivjio 1 cap PO Q6H PRN headache #20 caps 07/23/22 50 mg-300 mg-40 mg capsule (Fioricet) diphenhydramine HCl 25 mg capsule 50 mg PO TID PRN headache #40 caps 07/23/22 (Benadryl) metoclopramide HCl 10 mg tablet 10 mg PO Q6H PRN nausea and 07/23/22 (Reglan) vomiting #30 tabs amitriptyline 25 mg tablet 25 mg PO BEDTIME 90 days #90 tabs 07/25/22 Allergies Allergy/AdvReac Type Severity Reaction Status Date / Time Penicillins Allergy Mild RASH Verified 05/12/22 09:19 penicillin V Allergy Unknown hives Verified 05/12/22 09:19 Review of Systems Review of Systems: Yes all other systems are reviewed and are negative Constitutional: Constitutional: Reports no additional constitutional complaints, Denies body ache(s), Denies chills, Denies fever(s), Reports headache(s) and Denies weakness Eyes: Eyes: Reports no additional eye complaints, Denies change in vision and Reports photophobia ENT: Reports system reviewed and no additional complaints, except as documented, Denies dizziness, Reports headache(s), Denies nasal congestion, Denies nasal discharge and Denies neck pain Cardiovascular: Cardiovascular: Reports no additional cardiovascular complaints, Denies chest pain, Denies leg edema and Denies dyspnea Respiratory: Respiratory: Reports no additional respiratory complaints, Denies cough and Denies dyspnea Gastrointestinal: Gastrointestinal: Reports no additional gastrointestinal complaints, Denies abdominal pain, Denies diarrhea, Reports nausea and Reports vomiting Genitourinary: Genitourinary: Reports no additional female genitourinary complaints and Denies urinary incontinence Musculoskeletal: Musculoskeletal: Reports no additional musculoskeletal complaints, Denies back pain, Denies arthralgias, Denies joint swelling, Denies neck pain, Denies numbness and Denies tingling Integumentary/Breasts: Skin/Breast: Reports system reviewed and no additional complaints, except as docu and Denies rash Neurologic: Reports system reviewed and no additional complaints, except as documented, Denies Abnormal speech present, Denies dizziness, Reports headache(s), Denies numbness, Denies tingling and Denies weakness [facility] Past Medical History Attestation statement: The following information was validated with the patient. Source: old records reviewed and nursing notes reviewed Medical History Hypothyroidism Non-adherence to medical treatment Obesity Pernicious anemia Polyglandular autoimmune syndrome Premature ovarian failure Vitamin D deficiency Surgical History Hx of tubal ligation Family History Family History Father No problems noted. Mother Migraine headache Other Mental health disorder Substance use disorder Social History Social History Housing: Apartment Patient Tobacco Use Status: Never used Tobacco e-Cigarette/Vaping Use: Never Used Advance Directives: No Advance Directives Information Provided: No Current occupational status: employed Cognitive needs: No Hearing needs: No Vision needs: No Physical Exam Vital Signs: Vital Signs: Last Vital Signs Temp 98.1 F 08/20/22 19:33 Pulse 93 08/20/22 19:33 Resp 20 08/20/22 19:33 BP 142/71 H 08/20/22 19:33 Pulse Ox 100 08/20/22 19:33 O2 Del Method 08/20/22 19:33 BMI result Body Mass Index 36.6 Const: General: cooperative, healthy appearing, comfortable and no acute distress Orientation/consciousness: patient oriented x3 Limitations: no limitations HEENT: Head: Yes normal to inspection Ears: hearing grossly normal bilaterally and TM's normal bilaterally General nose exam: Normal external nose present Face and sinus: Yes normal facial exam Mouth: Normal oral and palatal mucosa present Throat: Yes posterior oropharynx normal Eyes: General: appearance normal, both eyes and all related structures Pupils: Equal, round and reactive pupils present Direct Ophthalmoscopy: photophobia Neck: Neck: Yes normal visual inspection Chest: Chest palpation & inspection: normal inspection of the chest Resp: Effort & Inspection: normal respiratory effort Auscultation: clear to auscultation bilaterally Cardio: Rate: regular rate Rhythm: regular rhythm Peripheral pulses: Peripheral pulses 2+ throughout GI: Inspection: Yes normal to inspection Palpation (GI): Soft to palpation and nontender Auscultation: normal bowel sounds Back/Spine/Pelvis: Thoracic/Lumbar Spine: thoracic and lumbar spine normal to inspection Skin: General skin exam: no rashes or lesions noted Neuro: General: patient oriented x3, moves all extremities, no focal motor deficits and normal sensation to monofilament Cranial nerves: Yes CN's II-XII intact bilaterally, Yes Equal, round and reactive pupils present, Yes Bilaterally intact EOM present, Yes Nystagmus not present, Yes Normal facial strength present and Yes Midline tongue present Cognition (Neuro): normal cognition Speech: No Abnormal speech present Gait exam (Neuro): Normal gait present Motor exam (neuro): 5/5 motor strength present throughout Sensory Exam: Normal double simultaneous stimulation for sensation Extrem: General: Yes normal to inspection Course Course Course Narrative: Patient reports headache resolved. Tolerating p.o.. Would like to go home. Recommend follow-up with primary care due to persistent symptoms. Reviewed worrisome signs and symptoms of when to return to the emergency room. Comfortable plan for discharge home. Medications Administered Discontinued Medications Generic Name Dose Route Start Last Admin Trade Name Isamar PRN Reason Stop Dose Admin Diphenhydramine HCl 25 mg 08/20/22 18:52 08/20/22 19:09 Diphenhydramine Hcl 50 Mg/Ml Vial IVPUSH 08/20/22 18:53 25 mg ONCE ONE Administration Sodium Chloride 1,000 mls @ 999 mls/hr 08/20/22 18:52 08/20/22 19:09 Ns IV 08/20/22 19:52 999 mls/hr .Q1H1M STA Administration Ketorolac Tromethamine 30 mg 08/20/22 18:52 08/20/22 19:08 Ketorolac Tromethamine 30 Mg/Ml Vial IVPUSH 08/20/22 18:53 30 mg ONCE ONE Administration Metoclopramide HCl 10 mg 08/20/22 18:52 08/20/22 19:08 Metoclopramide Hcl 10 Mg/2 Ml Vial IVPUSH 08/20/22 18:53 10 mg ONCE ONE Administration Ondansetron HCl 4 mg 08/20/22 18:41 08/20/22 19:09 Ondansetron Odt 4 Mg Tab.Rapdis TRANSLINGU 08/20/22 18:42 4 mg ONCE ONE Administration Medical Decision Making Medical Decision Making MDM Narrative: 37 year old female with history of migraines here with headache, photophobia, nausea and vomiting which feels very typical had a previous migraines which is unrelieved with Home medications. Normal neuro exam Will place IV and give Reglan, Benadryl, Toradol, fluids. Will send viral testing, obtain labs Differential Diagnosis Low concern for subarachnoid hemorrhage with gradual onset, normal neuro exam and pain someone or previous migraine episodes Lab Data Result Diagrams: 08/20/22 19:08 08/20/22 19:08 Labs: Lab Results 08/20/22 08/20/22 08/20/22 Range/Units 19:08 19:08 19:08 WBC 11.8 H (4.8-10.8) X10*3/uL RBC 5.62 H (4.20-5.50) X10*6/uL Hgb 14.1 (12.0-16.0) g/dl Hct 43.2 (37.0-47.0) % MCV 76.9 L (80.0-98.0) fL MCH 25.1 L (27.0-33.0) pg MCHC 32.6 (31.0-35.0) g/dl RDW 14.7 (11.0-16.0) % Plt Count 367 (160-400) X10*3/uL MPV 10.9 (9.4-12.3) fL Absolute Nucleated RBC 0.000 (0.0-0.012) X10*3/uL Nucleated RBC % (auto) 0.0 (0.0-0.2) /100WBC Sodium 139 (135-145) mmol/L Potassium 4.0 (3.3-5.1) mmol/L Chloride 104 (96-108) mmol/L Carbon Dioxide 22 (22-29) mmol/L Anion Gap 17 (12-20) BUN 13 (9-16) mg/dL Creatinine 0.84 (0.5-1.4) mg/dL Estim Creat Clear Calc 95.0 Estimated GFR > 60 Random Glucose 106 (60-115) mg/dL Calcium 10.3 H (8.4-10.2) mg/dL Total Bilirubin 0.5 (0.0-1.0) mg/dL Direct Bilirubin < 0.2 (0.0-0.5) mg/dL AST 33 H (5-31) U/L ALT 30 (0-31) U/L Alkaline Phosphatase 106 (39-117) U/L Total Protein 8.2 H (6.5-8.0) g/dL Albumin 4.8 (3.5-5.0) g/dL Lipase 32 (8-78) U/L Influenza Type A (PCR) NEGATIVE (Negative) Influenza Type B (PCR) NEGATIVE (Negative) RSV RNA Qual (PCR) NEGATIVE (Negative) SARS-CoV-2 RNA (RT-PCR) NEGATIVE (Negative) Discharge Plan Discharge Clinical Impression: Migraine Patient Disposition: Home, Self-Care Instructions: Migraine Headache (ED) Additional Instructions: Lab work and viral testing are negative. Please follow-up with her primary care doctor as discussed Prescriptions: No Action cholecalciferol (vitamin D3) [Vitamin D3] 50 mcg (2,000 unit) capsule 50 mcg PO DAILY 90 Days Qty: 90 1RF levothyroxine [Levoxyl] 150 mcg tablet 150 mcg PO DAILY 30 Days Qty: 90 0RF amitriptyline 25 mg tablet 25 mg PO BEDTIME 90 Days Qty: 90 0RF ondansetron 4 mg tablet,disintegrating 4 mg PO Q6-8H PRN (Reason: nausea and vomiting) Qty: 15 0RF ondansetron 4 mg tablet,disintegrating 4 mg PO Q8H PRN (Reason: nausea and vomiting) Qty: 7 0RF vznrrmrzsx-dynzahsnuipnm-vuoo [Fioricet] 50-300-40 mg capsule 1 cap PO Q6H PRN (Reason: headache) Qty: 20 0RF metoclopramide HCl [Reglan] 10 mg tablet 10 mg PO Q6H PRN (Reason: nausea and vomiting) Qty: 30 0RF diphenhydramine HCl [Benadryl] 25 mg capsule 50 mg PO TID PRN (Reason: headache) Qty: 40 0RF ondansetron 4 mg tablet,disintegrating 4 mg PO TID PRN (Reason: nausea and vomiting) 5 Days Qty: 10 0RF ibuprofen 400 mg tablet 400 mg PO Q6H PRN (Reason: pain) Qty: 20 0RF sumatriptan succinate 50 mg tablet 50 mg PO ONCE PRN (Reason: migraine headache) 30 Days Qty: 14 1RF Rx Instructions: take at onset of headache with one ibuprofen cyanocobalamin (vitamin B-12) 500 mcg tablet,disintegrating 500 mcg sublingual DAILY 90 Days Qty: 90 1RF fluconazole [Diflucan] 150 mg tablet 150 mg PO Q3D Rx Instructions: may repeat second dose 72 hrs after first dose if symptoms persist
[2022-08-20 19:19] LABS: Hematocrit 43.2 % (37.0-47.0); Hemoglobin 14.1 g/dl (12.0-16.0); Mean Corpuscular HGB Conc 32.6 g/dl (31.0-35.0); Mean Corpuscular Hemoglobin 25.1 pg (27.0-33.0); Mean Corpuscular Volume 76.9 fL (80.0-98.0); Mean Platelet Volume 10.9 fL (9.4-12.3); Platelet Count 367 X10*3/uL (160-400); Red Blood Count 5.62 X10*6/uL (4.20-5.50); Red Cell Distribution Width 14.7 % (11.0-16.0); White Blood Count 11.8 X10*3/uL (4.8-10.8)
[2022-08-20 19:33] VITALS: BP 142/71; PULSE 93; RESP 20; TEMP 36.7; O2SAT 100
[2022-08-20 19:36] LABS: Alanine Aminotransferase 30 U/L (0-31); Albumin Level 4.8 g/dL (3.5-5.0); Alkaline Phosphatase 106 U/L (39-117); Anion Gap 17 (12-20); Aspartate Amino Transferase 33 U/L (5-31); Bilirubin Direct < 0.2 mg/dL (0.0-0.5); Bilirubin Total 0.5 mg/dL (0.0-1.0); Blood Urea Nitrogen 13 mg/dL (9-16); Calcium 10.3 mg/dL (8.4-10.2); Carbon Dioxide 22 mmol/L (22-29); Chloride 104 mmol/L (96-108); Estimated Glomerular Filt Rate > 60; Glucose Random 106 mg/dL (60-115); Lipase 32 U/L (8-78); Sodium 139 mmol/L (135-145); Total Protein 8.2 g/dL (6.5-8.0)
[2022-08-20 19:56] LABS: Influenza A PCR NEGATIVE (Negative); Influenza B PCR NEGATIVE (Negative); Resp Syncy Virus RNA Qual PCR NEGATIVE (Negative); SARS COV2 PCR INHOUSE NEGATIVE (Negative)
== END 2022-08-20 21:28 | disposition home or self-care (01) ==
PROVIDERS: Student in an Organized Health Care Education/Training Program; Emergency Provider Internal Medicine; PCP Internal Medicine
DX: G43.909 Migraine, unspecified, not intractable, without status migrainosus (principal); R07.89 Other chest pain; Z20.822 Contact with and (suspected) exposure to COVID-19; Z79.899 Other long term (current) drug therapy
CPT/HCPCS: 0241U; 80048; 80076; 83690; 85027; 96361; 96374; 96375; 99284; J1200; J1885; J2765

== ENCOUNTER 2022-09-07 09:22 | Outpatient (REF) | payer OTHER, SELFPAY ==
[2022-09-07 10:11] LABS: COVID-19 Test Negative (Negative); IDNOW Serial# 16C4AD1C
== END 2022-09-07 09:23 | disposition home or self-care (01) ==
LOC: HO.LAB 09:22
PROVIDERS: Visit Provider Internal Medicine
DX: Z20.822 Contact with and (suspected) exposure to COVID-19 (principal)
CPT/HCPCS: 87635; C9803

== ENCOUNTER 2022-09-11 10:18 | Outpatient (REF) | payer OTHER, SELFPAY ==
--- NOTE | ~2022-09-11 | MR_ITS ---
MRI OF THE BRAIN WITHOUT IV CONTRAST INDICATION: Headache. COMPARISON: Head CT 05/06/2019. TECHNIQUE: Multiplanar multisequence MR imaging of the brain was obtained without IV contrast. FINDINGS: There is no hydrocephalus, extra-axial surface collection, or herniation. No parenchymal signal abnormality. The major flow voids at the skull base are preserved. There is no acute infarct on diffusion-weighted imaging. There is no intracranial hemorrhage on the gradient recalled echo acquisition. The midline structures are normal. The cerebellar tonsils are normally positioned. The cerebellum and brainstem are normal. The craniocervical junction is normal. Osseous marrow signal intensity is homogenous. The visualized soft tissues are unremarkable. MR/MR head/brain wo con IMPRESSION: Unremarkable noncontrast MRI of the brain.
== END 2022-09-11 10:19 | disposition home or self-care (01) ==
LOC: HO.MRI 10:18
PROVIDERS: PCP Internal Medicine; Visit Provider Internal Medicine
DX: R51.9 Headache, unspecified (principal)
CPT/HCPCS: 70551

== ENCOUNTER 2022-10-23 10:34 | Outpatient (REF) | payer OTHER, SELFPAY ==
[2022-10-23 11:13] LABS: COVID-19 Test Negative (Negative); IDNOW Serial# 55D5AD1C
== END 2022-10-23 10:35 | disposition home or self-care (01) ==
LOC: HO.LAB 10:34
PROVIDERS: Visit Provider Internal Medicine
DX: Z20.822 Contact with and (suspected) exposure to COVID-19 (principal)
CPT/HCPCS: 87635; C9803

== ENCOUNTER 2022-10-27 18:22 | Emergency (ER) | payer OTHER, SELFPAY ==
[2022-10-27 18:35] VITALS: BP 171/74; PULSE 88; RESP 18; TEMP 36.8; O2SAT 97; BMI 36.6
--- NOTE | 2022-10-27 18:37 | ED_ITS ---
HPI - General Adult General Chief complaint: Headache <Joanna De La O CNP - Last Filed: 10/27/22 18:42> Stated complaint: Vomiting/Headache <Joanna De La O CNP - Last Filed: 10/27/22 18:42> Time Seen by Provider: 10/27/22 23:13 <Joanna De La O CNP - Last Filed: 10/27/22 18:42> Source: patient <Tonya Hoffman NP - Last Filed: 10/28/22 00:33> Mode of arrival: ambulatory <Tonya Hoffman NP - Last Filed: 10/28/22 00:33> Limitations: no limitations <Tonya Hoffman NP - Last Filed: 10/28/22 00:33> History of Present Illness HPI narrative: 37-year-old female presents with 1 day of migraine headaches, started off mild this morning and gradually increased, has photophobia with nausea and vomiting. She has been taking new medication Nurtec, which has been ineffective. Headache feels consistent prior. <Tonya Hoffman NP - Last Filed: 10/28/22 00:33> Onset (ago): day(s) (1) <Tonya Hoffman NP - Last Filed: 10/28/22 00:33> Location: head <Tonya Hoffman NP - Last Filed: 10/28/22 00:33> Radiation: non-radiation <Tonya Hoffman NP - Last Filed: 10/28/22 00:33> Severity: severe <Tonya Hoffman NP - Last Filed: 10/28/22 00:33> Severity scale (1-10): 10 <Tonya Hoffman NP - Last Filed: 10/28/22 00:33> Quality: aching and constant <Tonya Hoffman NP - Last Filed: 10/28/22 00:33> Pain Consistency: constant <Tonya Hoffman NP - Last Filed: 10/28/22 00:33> Relieving factors: none <Tonya Hoffman NP - Last Filed: 10/28/22 00:33> Exacerbating factors: other (Light) <Tonya Hoffman NP - Last Filed: 10/28/22 00:33> Associated symptoms: headaches and nausea/vomiting <Tonya Hoffman NP - Last Filed: 10/28/22 00:33> [facility] <Tonya Hoffman NP - Last Filed: 10/28/22 00:33> Related Data Home medications: Home Medications Medication Instructions Recorded Confirmed fluconazole 150 mg tablet 150 mg PO Q3D 05/12/22 08/23/22 (Diflucan) Previous Rx's Medication Instructions Recorded ibuprofen 400 mg tablet 400 mg PO Q6H PRN pain #20 tabs 12/07/21 dxmaulposo-oegolvtgdxpej-swmueram 1 cap PO Q6H PRN headache #20 caps 07/23/22 50 mg-300 mg-40 mg capsule (Fioricet) metoclopramide HCl 10 mg tablet 10 mg PO Q6H PRN nausea and 07/23/22 (Reglan) vomiting #30 tabs rimegepant 75 mg disintegrating 75 mg PO Q OTHER DAY PRN migraine 08/23/22 [facility] headache #20 tabs Levoxyl 150 mcg tablet 150 mcg PO DAILY #90 tabs 09/29/22 (levothyroxine) cholecalciferol (vitamin D3) 50 50 mcg PO DAILY 90 days #90 caps 09/29/22 mcg (2,000 unit) capsule (Vitamin D3) cyanocobalamin (vitamin B-12) 500 500 mcg sublingual DAILY 90 days 09/29/22 mcg disintegrating #90 tabs tablet,sublingual oxwiasjkfp-clnblrfkwbtpt-lemrsjya 1 cap PO Q4-6H PRN migraine 10/28/22 50 mg-300 mg-40 mg capsule headache #10 caps (Fioricet) <Joanna De La O CNP - Last Filed: 10/27/22 18:42> Allergies/adverse reactions: Allergies Allergy/AdvReac Type Severity Reaction Status Date / Time Penicillins Allergy Mild RASH Verified 08/23/22 13:10 penicillin V Allergy Unknown hives Verified 08/23/22 13:10 <Joanna De La O CNP - Last Filed: 10/27/22 18:42> Review of Systems Review of Systems: Constitutional: No Fever, No Chills Eyes: Positive photophobia, No Eye Pain, No Swelling, No Redness, No Foreign B anna Gastrointestinal: Positive Nausea, positive Vomiting, No Diarrhea, No abdominal Pain Musculoskeletal: No joint pain, No Myalgias, No Joint Swelling Neuro: No Weakness, No Numbness, No Paresthesias, No Loss of Consciousness, No Dizziness, positive Headache <Tonya Hoffman NP - Last Filed: 10/28/22 00:33> Yes all other systems are reviewed and are negative <Tonya Hoffman NP - Last Filed: 10/28/22 00:33> [facility] Past Medical History Attestation statement: The following information was validated with the patient. <Tonya Hoffman NP - Last Filed: 10/28/22 00:33> Source: old records reviewed <Tonya Hoffman NP - Last Filed: 10/28/22 00:33> Medical History: Medical History Hypothyroidism Non-adherence to medical treatment Obesity Pernicious anemia Polyglandular autoimmune syndrome Premature ovarian failure Vitamin D deficiency <Joanna De La O CNP - Last Filed: 10/27/22 18:42> Surgical History: Surgical History Hx of tubal ligation <Joanna De La O CNP - Last Filed: 10/27/22 18:42> Family History Family History: Family History Father No problems noted. Mother Migraine headache Other Mental health disorder Substance use disorder <Joanna De La O CNP - Last Filed: 10/27/22 18:42> Social History Social History: Social History Housing: Apartment Patient Tobacco Use Status: Never used Tobacco e-Cigarette/Vaping Use: Never Used Advance Directives: No Advance Directives Information Provided: No Current occupational status: employed Cognitive needs: No Hearing needs: No Vision needs: No <Joanna De La O CNP - Last Filed: 10/27/22 18:42> Physical Exam ED Vital Signs: Vital Signs - 24 hr 10/27/22 18:35 Temperature 98.2 F Pulse Rate 88 Respiratory Rate 18 Blood Pressure 171/74 H Pulse Oximetry 97 Oxygen Delivery Method Room Air BMI result Body Mass Index 36.6 <Joanna De La O CNP - Last Filed: 10/27/22 18:42> Vital Signs - 24 hr 10/27/22 18:35 Temperature 98.2 F Pulse Rate 88 Respiratory Rate 18 Blood Pressure 171/74 H Pulse Oximetry 97 Oxygen Delivery Method Room Air BMI result Body Mass Index 36.6 <Tonya Hoffman NP - Last Filed: 10/28/22 00:33> Appearance: Alert. Oriented X3. Moderate distress. Eyes: Pupils equal, round and reactive to light. ENT: Pharynx normal. Neck: Normal inspection. Neck supple. No vertebral tenderness or step-offs. No nuchal rigidity. CVS: Normal heart rate and rhythm. Pulses normal. Respiratory: No respiratory distress. Skin: Skin warm and dry. Normal skin color. Extremities: Gait well balanced well coordinated. Neuro: No motor deficit. No sensory deficit. Cranial nerves 2-12 intact <Tonya Hoffman NP - Last Filed: 10/28/22 00:33> Course Course Course Narrative: This is an RME: Additional HPI, ROS, PE not included below will be deferred to primary provider. Patient is a 37-year-old female who presents to the emergency department for evaluation of multiple complaints. Symptom onset today with migraine; left sided, and associated dzziness, nausea, vomiting. 1500 took [place]gepant [place] [id number] without relief. States this is consistent with her prior migraine headaches, but they usually respond to these medications. Also she is reporting intermittent chest pain, L anterior chest, made worse by vomiting. Denies fevers, chills, URI symptoms. Denies possibility of , history of tubal ligation. Plan: labs, EKG, viral testing <Joanna De La O CNP - Last Filed: 10/27/22 18:42> This is an RME: Additional HPI, ROS, PE not included below will be deferre d to primary provider. Patient is a 37-year-old female who presents to the emergency department for evaluation of multiple complaints. Symptom onset today with migraine; left sided, and associated dzziness, nausea, vomiting. 1500 took [place] [address] without relief. States this is consistent with her prior migraine headaches, but they usually respond to these medications. Also she is reporting intermittent chest pain, L anterior chest, made worse by vomiting. Denies fevers, chills, URI symptoms. Denies possibility of , history of tubal ligation. Plan: labs, EKG, viral testing 37-year-old female presents with migraine headache not resolved by her prescription medications and enfx-zgu-xkekxswi. She presents on a regular basis with symptoms consistent with her presentation today. She has no indication of nuchal rigidity or infection. Will give Benadryl, Toradol, Reglan, IV fluids, and sumatriptan. 00:07 migraine resolved. Plan care is to discharge home. Patient understands that she may not be able to take her new prescription medication Fioricet, however new medications are not effective for her. Patient understands she must follow-up with primary care physician. Verbalized understanding of signs and symptoms indicating need for emergent intervention agrees with plan of care discharge home. <Tonya Hoffman DIRECTOR OF PRIMARY - Last Filed: 10/28/22 00:33> Medications Administered Discontinued Medications Generic Name Dose Route Start Last Admin Trade Name Freq PRN Reason Stop Dose Admin Diphenhydramine HCl 12.5 mg 10/27/22 23:15 10/27/22 23:38 Diphenhydramine Hcl 50 Mg/Ml Vial IVPUSH 10/27/22 23:16 12.5 mg ONCE ONE Administration Sodium Chloride 1,000 mls @ 999 mls/hr 10/27/22 23:15 10/27/22 23:38 Ns IVCONT 10/28/22 00:15 999 mls/hr .Q1H1M DEVON Administration Ketorolac Tromethamine 30 mg 10/27/22 23:15 10/27/22 23:39 Ketorolac Tromethamine 30 Mg/Ml Vial IVPUSH 10/27/22 23:16 30 mg ONCE ONE Administration Metoclopramide HCl 10 mg 10/27/22 23:15 10/27/22 23:39 Metoclopramide Hcl 10 Mg/2 Ml Vial IVPUSH 10/27/22 23:16 10 mg ONCE ONE Administration Ondansetron HCl 4 mg 10/27/22 19:35 10/27/22 20:08 Ondansetron Odt 4 Mg Tab.Rapdis TRANSLINGU 10/27/22 19:36 4 mg ONCE ONE Administration Sumatriptan Succinate 6 mg 10/27/22 23:15 10/27/22 23:39 Sumatriptan Succinate 6 Mg/0.5 Ml Vial SUBCUT 10/27/22 23:16 6 mg ONCE ONE Administration <Joanna De La O CNP - Last Filed: 10/27/22 18:42> Medications Administered Discontinued Medications Generic Name Dose Route Start Last Admin Trade Name Isamar PRN Reason Stop Dose Admin Diphenhydramine HCl 12.5 mg 10/27/22 23:15 10/27/22 23:38 Diphenhydramine Hcl 50 Mg/Ml Vial IVPUSH 10/27/22 23:16 12.5 mg ONCE ONE Administration Sodium Chloride 1,000 mls @ 999 mls/hr 10/27/22 23:15 10/27/22 23:38 Ns IVCONT 10/28/22 00:15 999 mls/hr .Q1H1M DEVON Administration Ketorolac Tromethamine 30 mg 10/27/22 23:15 10/27/22 23:39 Ketorolac Tromethamine 30 Mg/Ml Vial IVPUSH 10/27/22 23:16 30 mg ONCE ONE Administration Metoclopramide HCl 10 mg 10/27/22 23:15 10/27/22 23:39 Metoclopramide Hcl 10 Mg/2 Ml Vial IVPUSH 10/27/22 23:16 10 mg ONCE ONE Administration Ondansetron HCl 4 mg 10/27/22 19:35 10/27/22 20:08 Ondansetron Odt 4 Mg Tab.Rapdis TRANSLINGU 10/27/22 19:36 4 mg ONCE ONE Administration Sumatriptan Succinate 6 mg 10/27/22 23:15 10/27/22 23:39 Sumatriptan Succinate 6 Mg/0.5 Ml Vial SUBCUT 10/27/22 23:16 6 mg ONCE ONE Administration <Tonya Hoffman NP - Last Filed: 10/28/22 00:33> Medical Decision Making Differential Diagnosis Differential Diagnoses: The differential diagnosis associated with the presentation includes <Kaela Hoffman NP - Last Filed: 10/28/22 00:33> Migraine <Tonya Hoffman, DIRECTOR OF PRIMARY - Last Filed: 10/28/22 00:33> Lab Data MDM Lab Attestation statement: I reviewed the patient's lab results. <Tonya Hoffman, DIRECTOR OF PRIMARY - Last Filed: 10/28/22 00:33> Result Diagrams: 10/27/22 20:00 10/27/22 20:00 <Joanna De La O, TOOL AND DIE MACHINIST - Last Filed: 10/27/22 18:42> Labs: Lab Results 10/27/22 10/27/22 10/27/22 Range/Units 02:44 20:00 20:00 WBC 10.6 (4.8-10.8) X10*3/uL RBC 5.14 (4.20-5.50) X10*6/uL Hgb 13.7 (12.0-16.0) g/dl Hct 41.3 (37.0-47.0) % MCV 80.4 (80.0-98.0) fL MCH 26.7 L (27.0-33.0) pg MCHC 33.2 (31.0-35.0) g/dl RDW 16.6 H (11.0-16.0) % Plt Count 319 (160-400) X10*3/uL MPV 11.1 (9.4-12.3) fL Immature Gran % (Auto) 0.4 (0.0-0.4) % Neut % (Auto) 77.8 H (45-73) % Lymph % (Auto) 15.8 L (20-40) % [place] % (Auto) 4.7 (2-11) % Eos % (Auto) 0.7 (0-4) % Baso % (Auto) 0.6 (0-2) % Lymph # (Auto) 1.7 (1.2-4.9) X10*3/uL [place] # (Auto) 0.5 (0.1-1.2) X10*3/uL Eos # (Auto) 0.1 (0.0-0.4) X10*3/uL Baso # (Auto) 0.1 (0.0-0.2) X10*3/uL Abs Immat Gran (auto) 0.04 H (0.00-0.03) X10*3/uL Absolute Neuts (auto) 8.3 (2.0-8.3) x10*3/uL Absolute Nucleated RBC 0.000 (0.0-0.012) X10*3/uL Nucleated RBC % (auto) 0.0 (0.0-0.2) /100WBC Sodium 140 (135-145) mmol/L Potassium 4.3 (3.3-5.1) mmol/L Chloride 102 (96-108) mmol/L Carbon Dioxide 26 (22-29) mmol/L Anion Gap 16 (12-20) BUN 13 (9-16) mg/dL Creatinine 0.85 (0.5-1.4) mg/dL Estim Creat Clear Calc 93.9 Estimated GFR > 60 Random Glucose 96 (60-115) mg/dL Calcium 10.1 (8.4-10.2) mg/dL Magnesium 2.2 (1.6-2.6) mg/dL Total Bilirubin 0.5 (0.0-1.0) mg/dL AST 20 (5-31) U/L ALT 21 (0-31) U/L Alkaline Phosphatase 119 H (39-117) U/L Troponin I High Sens < 3.5 (<3.5-17.0) ng/L Total Protein 8.0 (6.5-8.0) g/dL Albumin 4.8 (3.5-5.0) g/dL COVID-19 (BRYAN) (Negative) COVID-19 Clin Com Influenza Type A (BRITTA) (Negative) Influenza Type B (BRITTA) (Negative) Influenza A & B Note 10/27/22 10/27/22 Range/Units 20:00 20:00 WBC (4.8-10.8) X10*3/uL RBC (4.20-5.50) X10*6/uL Hgb (12.0-16.0) g/dl Hct (37.0-47.0) % MCV (80.0-98.0) fL MCH (27.0-33.0) pg MCHC (31.0-35.0) g/dl RDW (11.0-16.0) % Plt Count (160-400) X10*3/uL MPV (9.4-12.3) fL Immature Gran % (Auto) (0.0-0.4) % Neut % (Auto) (45-73) % Lymph % (Auto) (20-40) % [place] % (Auto) (2-11) % Eos % (Auto) (0-4) % Baso % (Auto) (0-2) % Lymph # (Auto) (1.2-4.9) X10*3/uL [place] # (Auto) (0.1-1.2) X10*3/uL Eos # (Auto) (0.0-0.4) X10*3/uL Baso # (Auto) (0.0-0.2) X10*3/uL Abs Immat Gran (auto) (0.00-0.03) X10*3/uL Absolute Neuts (auto) (2.0-8.3) x10*3/uL Absolute Nucleated RBC (0.0-0.012) X10*3/uL Nucleated RBC % (auto) (0.0-0.2) /100WBC Sodium (135-145) mmol/L Potassium (3.3-5.1) mmol/L Chloride (96-108) mmol/L Carbon Dioxide (22-29) mmol/L Anion Gap (12-20) BUN (9-16) mg/dL Creatinine (0.5-1.4) mg/dL Estim Creat Clear Calc Estimated GFR Random Glucose (60-115) mg/dL Calcium (8.4-10.2) mg/dL Magnesium (1.6-2.6) mg/dL Total Bilirubin (0.0-1.0) mg/dL AST (5-31) U/L ALT (0-31) U/L Alkaline Phosphatase (39-117) U/L Troponin I High Sens (<3.5-17.0) ng/L Total Protein (6.5-8.0) g/dL Albumin (3.5-5.0) g/dL COVID-19 (BRYAN) Negative (Negative) COVID-19 Clin Com See Note Influenza Type A (BRITTA) Negative (Negative) Influenza Type B (BRITTA) Negative (Negative) Influenza A & B Note See Note <Joanna De La O, JUAN - Last Filed: 10/27/22 18:42> Lab Results 10/27/22 10/27/22 10/27/22 Range/Units 02:44 20:00 20:00 WBC 10.6 (4.8-10.8) X10*3/uL RBC 5.14 (4.20-5.50) X10*6/uL Hgb 13.7 (12.0-16.0) g/dl Hct 41.3 (37.0-47.0) % MCV 80.4 (80.0-98.0) fL MCH 26.7 L (27.0-33.0) pg MCHC 33.2 (31.0-35.0) g/dl RDW 16.6 H (11.0-16.0) % Plt Count 319 (160-400) X10*3/uL MPV 11.1 (9.4-12.3) fL Immature Gran % (Auto) 0.4 (0.0-0.4) % Neut % (Auto) 77.8 H (45-73) % Lymph % (Auto) 15.8 L (20-40) % [place] % (Auto) 4.7 (2-11) % Eos % (Auto) 0.7 (0-4) % Baso % (Auto) 0.6 (0-2) % Lymph # (Auto) 1.7 (1.2-4.9) X10*3/uL [place] # (Auto) 0.5 (0.1-1.2) X10*3/uL Eos # (Auto) 0.1 (0.0-0.4) X10*3/uL Baso # (Auto) 0.1 (0.0-0.2) X10*3/uL Abs Immat Gran (auto) 0.04 H (0.00-0.03) X10*3/uL Absolute Neuts (auto) 8.3 (2.0-8.3) x10*3/uL Absolute Nucleated RBC 0.000 (0.0-0.012) X10*3/uL Nucleated RBC % (auto) 0.0 (0.0-0.2) /100WBC Sodium 140 (135-145) mmol/L Potassium 4.3 (3.3-5.1) mmol/L Chloride 102 (96-108) mmol/L Carbon Dioxide 26 (22-29) mmol/L Anion Gap 16 (12-20) BUN 13 (9-16) mg/dL Creatinine 0.85 (0.5-1.4) mg/dL Estim Creat Clear Calc 93.9 Estimated GFR > 60 Random Glucose 96 (60-115) mg/dL Calcium 10.1 (8.4-10.2) mg/dL Magnesium 2.2 (1.6-2.6) mg/dL Total Bilirubin 0.5 (0.0-1.0) mg/dL AST 20 (5-31) U/L ALT 21 (0-31) U/L Alkaline Phosphatase 119 H (39-117) U/L Troponin I High Sens < 3.5 (<3.5-17.0) ng/L Total Protein 8.0 (6.5-8.0) g/dL Albumin 4.8 (3.5-5.0) g/dL COVID-19 (BRYAN) (Negative) COVID-19 Clin Com Influenza Type A (BRITTA) (Negative) Influenza Type B (BRITTA) (Negative) Influenza A & B Note 10/27/22 10/27/22 Range/Units 20:00 20:00 WBC (4.8-10.8) X10*3/uL RBC (4.20-5.50) X10*6/uL Hgb (12.0-16.0) g/dl Hct (37.0-47.0) % MCV (80.0-98.0) fL MCH (27.0-33.0) pg MCHC (31.0-35.0) g/dl RDW (11.0-16.0) % Plt Count (160-400) X10*3/uL MPV (9.4-12.3) fL Immature Gran % (Auto) (0.0-0.4) % Neut % (Auto) (45-73) % Lymph % (Auto) (20-40) % [place] % (Auto) (2-11) % Eos % (Auto) (0-4) % Baso % (Auto) (0-2) % Lymph # (Auto) (1.2-4.9) X10*3/uL [place] # (Auto) (0.1-1.2) X10*3/uL Eos # (Auto) (0.0-0.4) X10*3/uL Baso # (Auto) (0.0-0.2) X10*3/uL Abs Immat Gran (auto) (0.00-0.03) X10*3/uL Absolute Neuts (auto) (2.0-8.3) x10*3/uL Absolute Nucleated RBC (0.0-0.012) X10*3/uL Nucleated RBC % (auto) (0.0-0.2) /100WBC Sodium (135-145) mmol/L Potassium (3.3-5.1) mmol/L Chloride (96-108) mmol/L Carbon Dioxide (22-29) mmol/L Anion Gap (12-20) BUN (9-16) mg/dL Creatinine (0.5-1.4) mg/dL Estim Creat Clear Calc Estimated GFR Random Glucose (60-115) mg/dL Calcium (8.4-10.2) mg/dL Magnesium (1.6-2.6) mg/dL Total Bilirubin (0.0-1.0) mg/dL AST (5-31) U/L ALT (0-31) U/L Alkaline Phosphatase (39-117) U/L Troponin I High Sens (<3.5-17.0) ng/L Total Protein (6.5-8.0) g/dL Albumin (3.5-5.0) g/dL COVID-19 (BRYAN) Negative (Negative) COVID-19 Clin Com See Note Influenza Type A (BRITTA) Negative (Negative) Influenza Type B (BRITTA) Negative (Negative) Influenza A & B Note See Note <Tonya Hoffman NP - Last Filed: 10/28/22 00:33> Independent Interpretation I performed an independent interpretation of an: EKG <Tonya Hoffman NP - Last Filed: 10/28/22 00:33> Interpretation: Normal sinus rhythm Normal ECG When compared with ECG of 23-APR-2022 21:10, No significant change was found Vent. rate 75 BPM NJ interval 154 ms QRS duration 84 ms QT/QTc 376/419 ms P-R-T axes 37 24 29 27-OCT-2022 20:19:29 <Tonya Hoffman NP - Last Filed: 10/28/22 00:33> External Record Review External record reviewed: Outpatient record and Prior outpatient labs <Tonya Hoffman NP - Last Filed: 10/28/22 00:33> Prescription Management I considered prescription management with: Pain Medication <Tonya Hoffman NP - Last Filed: 10/28/22 00:33> Discharge Plan Discharge Clinical Impression: Migraine <Joanna De La O CNP - Last Filed: 10/27/22 18:42> Patient Disposition: Home, Self-Care <Joanna De La O CNP - Last Filed: 10/27/22 18:42> Instructions: Migraine Headache (ED) <Joanna De La O CNP - Last Filed: 10/27/22 18:42> Additional Instructions: You were evaluated for migraine headache. A prescribed Fioricet. Please follow the directions. Please discuss your medication regimen with the pharmacist. You may not be able to take Nurtec with Fioricet. Thank you for choosing this emergency department for evaluation. Please follow-up with primary care physician as needed. Return to the emergency department for any new, concerning, or worsening symptoms. <Joanna De La O CNP - Last Filed: 10/27/22 18:42> Prescriptions: New zcilavbxds-jfkdwnswirdqk-gytb [Fioricet] 50-300-40 mg capsule 1 cap PO Q4-6H PRN (Reason: migraine headache) Qty: 10 0RF Rx Instructions: Nurtec ineffective No Action levothyroxine [Levoxyl] 150 mcg tablet 150 mcg PO DAILY Qty: 90 3RF cyanocobalamin (vitamin B-12) 500 mcg tablet,disintegrating 500 mcg sublingual DAILY 90 Days Qty: 90 1RF cholecalciferol (vitamin D3) [Vitamin D3] 50 mcg (2,000 unit) capsule 50 mcg PO DAILY 90 Days Qty: 90 1RF bbomafbabw-rfbczjuaywrvv-fsfb [Fioricet] 50-300-40 mg capsule 1 cap PO Q6H PRN (Reason: headache) Qty: 20 0RF metoclopramide HCl [Reglan] 10 mg tablet 10 mg PO Q6H PRN (Reason: nausea and vomiting) Qty: 30 0RF ibuprofen 400 mg tablet 400 mg PO Q6H PRN (Reason: pain) Qty: 20 0RF Nurtec ODT 75 mg tablet,disintegrating 75 mg PO Q OTHER DAY PRN (Reason: migraine headache) Qty: 20 0RF fluconazole [Diflucan] 150 mg tablet 150 mg PO Q3D Rx Instructions: may repeat second dose 72 hrs after first dose if symptoms persist <Jonana De La O, JUAN - Last Filed: 10/27/22 18:42>
--- NOTE | 2022-10-27 18:42 | ECG_ITS ---
Test Reason : Chest Pain Blood Pressure : / mmHG Vent. Rate : 075 BPM Atrial Rate : 075 BPM P-R Int : 154 ms QRS Dur : 084 ms QT Int : 376 ms P-R-T Axes : 037 024 029 degrees QTc Int : 419 ms Normal sinus rhythm Normal ECG When compared with ECG of 23-APR-2022 21:10, No significant change was found Referred By: Joanna De La O Electronically Signed By:SUSANA ALDANA MD
[2022-10-27] MEDS: Ondansetron ODT 4 MG TAB.RAPDIS TRANSLINGU (20:08)
[2022-10-27 20:09] LABS: MANUAL DIFF FLAG NO
[2022-10-27 20:13] LABS: Basophils Absolute Auto 0.1 X10*3/uL (0.0-0.2); Basophils Percent Auto 0.6 % (0-2); Eosinophils Absolute Auto 0.1 X10*3/uL (0.0-0.4); Eosinophils Percent Auto 0.7 % (0-4); Hematocrit 41.3 % (37.0-47.0); Hemoglobin 13.7 g/dl (12.0-16.0); Imm Gran Abs Auto 0.04 X10*3/uL (0.00-0.03); Imm Gran Pct Auto 0.4 % (0.0-0.4); Lymphocytes Absolute Auto 1.7 X10*3/uL (1.2-4.9); Lymphocytes Percent Auto 15.8 % (20-40); Mean Corpuscular HGB Conc 33.2 g/dl (31.0-35.0); Mean Corpuscular Hemoglobin 26.7 pg (27.0-33.0); Mean Corpuscular Volume 80.4 fL (80.0-98.0); Mean Platelet Volume 11.1 fL (9.4-12.3); Monocytes Absolute Auto 0.5 X10*3/uL (0.1-1.2); Monocytes Percent Auto 4.7 % (2-11); Neutrophils Absolute Auto 8.3 x10*3/uL (2.0-8.3); Neutrophils Percent Auto 77.8 % (45-73); Platelet Count 319 X10*3/uL (160-400); Red Blood Count 5.14 X10*6/uL (4.20-5.50); Red Cell Distribution Width 16.6 % (11.0-16.0); White Blood Count 10.6 X10*3/uL (4.8-10.8)
[2022-10-27 20:29] LABS: COVID-19 Test Negative (Negative); IDNOW Serial# 6674DD1D
[2022-10-27 20:33] LABS: IDNOW Serial# 55D5AD1C; Influenza A Negative (Negative); Influenza B2 Negative (Negative)
[2022-10-27 20:36] LABS: Alanine Aminotransferase 21 U/L (0-31); Albumin Level 4.8 g/dL (3.5-5.0); Alkaline Phosphatase 119 U/L (39-117); Anion Gap 16 (12-20); Aspartate Amino Transferase 20 U/L (5-31); Bilirubin Total 0.5 mg/dL (0.0-1.0); Blood Urea Nitrogen 13 mg/dL (9-16); Calcium 10.1 mg/dL (8.4-10.2); Carbon Dioxide 26 mmol/L (22-29); Chloride 102 mmol/L (96-108); Creatinine Clr Calc Pharmacy 93.9; Estimated Glomerular Filt Rate > 60; Glucose Random 96 mg/dL (60-115); Magnesium 2.2 mg/dL (1.6-2.6); Potassium 4.3 mmol/L (3.3-5.1); Sodium 140 mmol/L (135-145)
[2022-10-27 20:44] LABS: Troponin-I High Sensitivity < 3.5 ng/L (<3.5-17.0)
[2022-10-27] MEDS: 0.9 % Sodium Chloride 1,000 ML 999 ML IVCONT (23:38)
[2022-10-27] MEDS: diphenhydrAMINE HCL 50 MG/ML VIAL 12.5 MG IVPUSH (23:38)
[2022-10-27] MEDS: SUMAtriptan succinate 6 MG/0.5 ML VIAL SUBCUT (23:39)
[2022-10-27] MEDS: Ketorolac Tromethamine 30 MG/ML VIAL IVPUSH (23:39)
[2022-10-27] MEDS: Metoclopramide HCl 10 MG/2 ML VIAL IVPUSH (23:39)
== END 2022-10-28 00:45 | disposition home or self-care (01) ==
PROVIDERS: Nurse Practitioner Family; Emergency Provider Student in an Organized Health Care Education/Training Program; PCP Internal Medicine
DX: G43.909 Migraine, unspecified, not intractable, without status migrainosus (principal); R07.89 Other chest pain; R11.2 Nausea with vomiting, unspecified; Z20.822 Contact with and (suspected) exposure to COVID-19; Z20.828 Contact with and (suspected) exposure to other viral communicable diseases; Z79.899 Other long term (current) drug therapy
CPT/HCPCS: 80053; 83735; 84484; 85025; 87502; 87635; 93005; 96372; 96374; 96375; 99284; J1200; J1885; J2765; J3030

== ENCOUNTER → 2022-11-03 10:40 | Outpatient (BNVA) | payer OTHER, SELFPAY | PROVIDERS: PCP Internal Medicine; Visit Provider Nurse Practitioner Family | DX: G43.009 Migraine without aura, not intractable, without status migrainosus (principal); G47.9 Sleep disorder, unspecified; G47.19 Other hypersomnia; R06.83 Snoring | CPT/HCPCS: 99202 ==

== ENCOUNTER → 2022-12-05 09:38 | Outpatient (REF) | payer OTHER, SELFPAY | LOC: HO.SL 09:38 | PROVIDERS: PCP Internal Medicine; Visit Provider Nurse Practitioner Family | DX: G47.19 Other hypersomnia (principal); G47.9 Sleep disorder, unspecified; R06.83 Snoring | CPT/HCPCS: 95806 ==

== ENCOUNTER 2022-12-14 11:42 | Outpatient (REF) | payer OTHER, SELFPAY ==
[2022-12-14 14:07] LABS: MANUAL DIFF FLAG NO
[2022-12-14 14:16] LABS: Basophils Absolute Auto 0.1 X10*3/uL (0.0-0.2); Eosinophils Absolute Auto 0.1 X10*3/uL (0.0-0.4); Hematocrit 43.5 % (37.0-47.0); Imm Gran Abs Auto 0.04 X10*3/uL (0.00-0.03); Imm Gran Pct Auto 0.6 % (0.0-0.4); Lymphocytes Absolute Auto 2.1 X10*3/uL (1.2-4.9); Lymphocytes Percent Auto 29.6 % (20-40); Mean Corpuscular HGB Conc 32.2 g/dl (31.0-35.0); Mean Corpuscular Hemoglobin 26.4 pg (27.0-33.0); Mean Corpuscular Volume 82.1 fL (80.0-98.0); Mean Platelet Volume 11.4 fL (9.4-12.3); Monocytes Absolute Auto 0.4 X10*3/uL (0.1-1.2); Monocytes Percent Auto 6.2 % (2-11); Neutrophils Absolute Auto 4.3 x10*3/uL (2.0-8.3); Neutrophils Percent Auto 60.6 % (45-73); Platelet Count 352 X10*3/uL (160-400); Red Cell Distribution Width 14.9 % (11.0-16.0); White Blood Count 7.1 X10*3/uL (4.8-10.8)
[2022-12-14 14:50] LABS: Alanine Aminotransferase 29 U/L (0-31); Albumin Level 4.5 g/dL (3.5-5.0); Alkaline Phosphatase 112 U/L (39-117); Anion Gap 15 (12-20); Aspartate Amino Transferase 22 U/L (5-31); Bilirubin Total 0.4 mg/dL (0.0-1.0); Blood Urea Nitrogen 15 mg/dL (9-16); Calcium 9.9 mg/dL (8.4-10.2); Carbon Dioxide 27 mmol/L (22-29); Chloride 104 mmol/L (96-108); Cholesterol 235 mg/dL; Estimated Glomerular Filt Rate > 60; Glucose Fasting 86 mg/dL (60-99); HDL Cholesterol 38 mg/dL; LDL Cholesterol Calculated 147 mg/dl; Potassium 4.5 mmol/L (3.3-5.1); Sodium 141 mmol/L (135-145); Total Protein 7.5 g/dL (6.5-8.0); Triglycerides 254 mg/dL
[2022-12-14 15:02] LABS: Ferritin 13 ng/mL (10-122); Vitamin B12 635 pg/mL (200-900)
[2022-12-14 16:15] LABS: Free T4 (Free Thyroxine) 1.22 ng/dL (0.71-1.85)
[2022-12-15 04:11] LABS: Syphilis Screen Nonreactive (Nonreactive)
[2022-12-15 04:45] LABS: HIV AB/AG Nonreactive (Nonreactive); HIV Num 1 0.08 S/CO (0.00-0.99); ~HepC Num1 0.21 S/CO (0.00-0.79); ~Hepatitis B Surface Antibody REACTIVE (Nonreactive); ~Hepatitis C Antibody Nonreactive (Nonreactive)
[2022-12-19 01:54] LABS: Herpes Simplex Type 1 IgG >58.00 index; Herpes Simplex Type 2 IgG <0.90 index
[2022-12-21 12:58] LABS: Vitamin D 25-OH, D2 <4 ng/mL; Vitamin D 25-OH, D3 43 ng/mL; Vitamin D 25-OH, Total 43 ng/mL (30-100)
== END 2022-12-14 11:43 | disposition home or self-care (01) ==
LOC: HO.HMGCLDS 11:42
PROVIDERS: PCP Internal Medicine; Visit Provider Internal Medicine
DX: Z00.01 Encounter for general adult medical examination with abnormal findings (principal); Z11.4 Encounter for screening for human immunodeficiency virus [HIV]; D51.0 Vitamin B12 deficiency anemia due to intrinsic factor deficiency; E03.8 Other specified hypothyroidism; E78.9 Disorder of lipoprotein metabolism, unspecified; G43.909 Migraine, unspecified, not intractable, without status migrainosus; E66.09 Other obesity due to excess calories; Z20.2 Contact with and (suspected) exposure to infections with a predominantly sexual mode of transmission
CPT/HCPCS: 36415; 80053; 80061; 82306; 82607; 82728; 84439; 84443; 85025; 86695; 86696; 86706; 86780; 86803; 87389

== ENCOUNTER → 2023-01-17 11:27 | Outpatient (BNVA) | payer OTHER, SELFPAY | PROVIDERS: PCP Internal Medicine; Visit Provider Nurse Practitioner Family ==

== ENCOUNTER 2023-03-15 10:43 | Outpatient (REF) | payer OTHER, SELFPAY ==
[2023-03-15 15:34] LABS: TSH reflex Free T4 39.07 uIU/mL (0.32-4.0)
[2023-03-15 16:12] LABS: Free T4 (Free Thyroxine) 1.74 ng/dL (0.71-1.85)
== END 2023-03-15 10:44 | disposition home or self-care (01) ==
LOC: HO.LAB 10:43
PROVIDERS: PCP Internal Medicine; Visit Provider Internal Medicine
DX: E03.8 Other specified hypothyroidism (principal)
CPT/HCPCS: 36415; 84439; 84443

== ENCOUNTER 2023-03-20 09:24 | Outpatient (AMB) | payer OTHER, SELFPAY ==
[2023-03-20 09:26] VITALS: BP 122/70; PULSE 83; O2SAT 95; BMI 37.9
--- NOTE | 2023-03-20 09:26 | A.OFFPC_ITS ---
Vital Signs 03/20/23 09:26 Height 5 ft 2 in Weight 207 lb 6 oz BMI 37.9 BP 122/70 Blood Pressure Location Lt brachial Position Sitting Pulse 83 Pulse Source Pulse Oximeter Pulse Oximetry (%) 95 Oxygen Delivery Method Room Air Intake Visit Reasons: thyroid follow up Allergies Penicillins Allergy (Mild, Verified 03/20/23 09:26) RASH penicillin V Allergy (Unknown, Verified 03/20/23 09:26) hives Medication List - Last Reconciled 03/20/23 by Noble Bernardo MD blood pressure monitor (Blood Pressure Kit) check BP and pulse daily and prn cholecalciferol (vitamin D3) (Vitamin D3) 50 mcg PO DAILY 90 days cyanocobalamin (vitamin B-12) 500 mcg sublingual DAILY 90 days ibuprofen 400 mg PO Q6H PRN Levoxyl (levothyroxine) 150 mcg PO DAILY NS magnesium oxide 400 mg PO BEDTIME 30 days ondansetron 4 mg PO Q6H PRN 30 days riboflavin (vitamin B2) 400 mg PO DAILY 30 days rimegepant (Nurtec ODT) 75 mg PO Q OTHER DAY PRN 32 days topiramate 25 - 50 mg (1 - 2 x 25 mg) PO BEDTIME 30 days Tobacco use date assessed: 03/20/23 Dental Screening Dental Screen Date: 03/20/23 Did you have a dental visit in the last 12 months?: Yes Did you have a dental problem in the last 6 months where you did not have access to dental care?: No Was dental information given to patient?: No HPI thyroid follow up 2 HPI Details Patient is 38-year-old female came in today to talk about her labs Patient have hypothyroidism, her TSH came back at 39.07 we repeated it and it was abnormal still She is on levothyroxine 50 mcg. Patient says that she has trouble taking medication she forgets so she discussed it with her donor services technician that she was seeing before and she was told that she can take all of them once a week However the system is not working out we discussed the side effect of hypothyroidism including here following dry skin constipation swelling of ankles and stress on other organs in the body. I would recommend that she put the bottle next to her to pressure either take it 1st thing in the morning or last thing at night just make sure her stomach is empty do not take it with food. Patient is to repeat labs again in 6 weeks. [facility] Medical History Hypothyroidism Non-adherence to medical treatment Obesity Pernicious anemia Polyglandular autoimmune syndrome Premature ovarian failure Vitamin D deficiency Surgical History Hx of tubal ligation Family History Father No problems noted. Mother Migraine headache Other Mental health disorder Substance use disorder Social History Housing: Apartment Alcohol intake: never Patient Tobacco Use Status: Never used Tobacco e-Cigarette/Vaping Use: Never Used Current occupational status: employed Cognitive needs: No Hearing needs: No Vision needs: No Questionnaire Thrive Questionnaire Date Thrive assessed: 12/07/21 AUDIT C Alcohol Use Questionnaire (AUDIT-C) 1. How often do you have a drink containing alcohol?: Never 3. How often do you have six or more drinks on one occasion?: Never Total Score: 0 Score Reviewed/Action Taken: Yes FOREIGN-7 AMB Questionnaire FOREIGN-7 Date FOREIGN - 7 assessed: 12/07/21 Source: Developed by Drs. Basil Orozco, Andreina Castaneda, Rick Diallo and colleagues, with an educational nicholas from [employer]. Review of Systems Const Denies chills and Denies fever(s) ENT Denies epistaxis and Denies nasal discharge Card Denies chest pain Resp Denies chest congestion, Denies cough and Denies hemoptysis GI Denies diarrhea and Denies nausea Skin/Breast Denies rash Neuro Reports no additional complaints Psych Reports no additional complaints Endo Reports no additional complaints Physical exam (Primary Care) Vital Signs: Last Vital Signs Pulse 83 03/20/23 09:26 BP 122/70 03/20/23 09:26 Pulse Ox 95 03/20/23 09:26 Oxygen Delivery Method Room Air 03/20/23 09:26 BMI result Body Mass Index 37.9 Tobacco/Smoking Status: Tobacco use Status Tobacco use date assessed 03/20/23 03/20/23 09:28 Patient Tobacco Use Status Never used Tobacco 03/20/23 09:28 e-Cigarette/Vaping Use Never Used 03/20/23 09:28 Thrive Assessment: Date of Thrive Assessment Date Thrive assessed 12/07/21 03/20/23 09:28 Const General: cooperative, comfortable and no acute distress Orientation/consciousness: patient oriented x3 HENAR Head: Yes normocephalic Eyes General: appearance normal, both eyes and all related structures Neck Neck: Yes supple Resp Effort & Inspection: normal respiratory effort, no cough and no stridor Cardio Rhythm: regular rhythm Heart sounds: S1 normal heart sound present and S2 normal heart sound present Skin General skin exam: turgor normal Neuro General: patient oriented x3, tone normal and moves all extremities Extrem Right lower extremity: no edema Left lower extremity: no edema Assessment and Plan Assessment & Plan (1) Hypothyroidism: Code(s): E03.9 - Hypothyroidism, unspecified Qualifiers: 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 Patient says that she has trouble taking medication she forgets so she discussed it with her donor services technician that she was seeing before and she was told that she can take all of them once a week However the system is not working out we discussed the side effect of hypothyroidism including here following dry skin constipation swelling of ankles and stress on other organs in the body. I would recommend that she put the bottle next to her to pressure either take it 1st thing in the morning or last thing at night just make sure her stomach is empty do not take it with food. Patient is to repeat labs again in 6 weeks. 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
== END 2023-03-20 09:45 | disposition home or self-care (01) ==
PROVIDERS: PCP Internal Medicine; Visit Provider Internal Medicine
DX: E03.8 Other specified hypothyroidism (principal); E06.3 Autoimmune thyroiditis
CPT/HCPCS: 99213

== ENCOUNTER 2023-05-14 15:00 | Outpatient (REF) | payer OTHER, SELFPAY ==
[2023-05-14 15:21] LABS: MANUAL DIFF FLAG NO
[2023-05-14 16:46] LABS: Basophils Absolute Auto 0.1 X10*3/uL (0.0-0.2); Basophils Percent Auto 0.7 % (0-2); Eosinophils Absolute Auto 0.1 X10*3/uL (0.0-0.4); Eosinophils Percent Auto 1.5 % (0-4); Hematocrit 41.2 % (37.0-47.0); Hemoglobin 12.9 g/dl (12.0-16.0); Imm Gran Abs Auto 0.03 X10*3/uL (0.00-0.03); Imm Gran Pct Auto 0.3 % (0.0-0.4); Lymphocytes Absolute Auto 2.7 X10*3/uL (1.2-4.9); Lymphocytes Percent Auto 29.1 % (20-40); Mean Corpuscular HGB Conc 31.3 g/dl (31.0-35.0); Mean Corpuscular Hemoglobin 25.6 pg (27.0-33.0); Mean Corpuscular Volume 81.7 fL (80.0-98.0); Mean Platelet Volume 12.2 fL (9.4-12.3); Monocytes Absolute Auto 0.6 X10*3/uL (0.1-1.2); Monocytes Percent Auto 6.3 % (2-11); Neutrophils Absolute Auto 5.7 x10*3/uL (2.0-8.3); Neutrophils Percent Auto 62.1 % (45-73); Platelet Count 335 X10*3/uL (160-400); Red Blood Count 5.04 X10*6/uL (4.20-5.50); Red Cell Distribution Width 15.8 % (11.0-16.0); White Blood Count 9.1 X10*3/uL (4.8-10.8)
[2023-05-14 17:33] LABS: Alanine Aminotransferase 18 U/L (0-31); Albumin Level 4.3 g/dL (3.5-5.0); Alkaline Phosphatase 94 U/L (39-117); Anion Gap 11 (12-20); Aspartate Amino Transferase 16 U/L (5-31); Bilirubin Total 0.3 mg/dL (0.0-1.0); Blood Urea Nitrogen 16 mg/dL (9-16); Calcium 9.5 mg/dL (8.4-10.2); Carbon Dioxide 24 mmol/L (22-29); Chloride 107 mmol/L (96-108); Estimated Glomerular Filt Rate > 60; Glucose Random 91 mg/dL (60-115); Potassium 3.4 mmol/L (3.3-5.1); Sodium 139 mmol/L (135-145); Total Protein 7.5 g/dL (6.5-8.0)
[2023-05-14 17:35] LABS: TSH reflex Free T4 6.71 uIU/mL (0.32-4.0)
[2023-05-14 17:55] LABS: Vitamin B12 480 pg/mL (200-900)
[2023-05-14 18:58] LABS: Free T4 (Free Thyroxine) 0.97 ng/dL (0.71-1.85)
[2023-05-19 14:48] LABS: Vitamin D 25-OH, D2 <4 ng/mL; Vitamin D 25-OH, D3 36 ng/mL; Vitamin D 25-OH, Total 36 ng/mL (30-100)
== END 2023-05-14 15:01 | disposition home or self-care (01) ==
LOC: HO.LAB 15:00
PROVIDERS: PCP Internal Medicine; Visit Provider Internal Medicine
DX: E03.8 Other specified hypothyroidism (principal); D51.0 Vitamin B12 deficiency anemia due to intrinsic factor deficiency; E55.9 Vitamin D deficiency, unspecified; E06.3 Autoimmune thyroiditis
CPT/HCPCS: 36415; 80053; 82306; 82607; 84439; 84443; 85025

== ENCOUNTER 2023-05-18 19:02 | Emergency (ER) | payer OTHER, SELFPAY ==
--- NOTE | 2023-05-18 19:34 | ED.GENADULT ---
HPI - General Adult General Chief complaint: Headache Stated complaint: Vomiting, migraine Time Seen by Provider: 05/18/23 23:33 Source: patient, RN notes reviewed and old records reviewed Mode of arrival: ambulatory Limitations: no limitations History of Present Illness HPI narrative: 38-year-old female presents for evaluation of a headache. Patient reports a history of migraines for which she follows with Neurology Her symptoms started about 10 hours ago She took her prescribed Nurtec and Topamax without relief. She reports this headache is similar to previous migraines she has had in the past Denies any trauma to head or neck No difficulty with speech and denies weakness Patient was given Benadryl, Toradol, Reglan by the triage provider At the time of my evaluation she reports that her headache has improved significantly to a 09/05 Related Data Previous Rx's Medication Instructions Recorded riboflavin (vitamin B2) 400 mg 400 mg PO DAILY 30 days #30 tabs 11/03/22 tablet blood pressure monitor (Blood #1 ea 11/06/22 Pressure Kit) rimegepant 75 mg disintegrating 75 mg PO Q OTHER DAY PRN migraine 11/06/22 tablet (Nurtec ODT) headache 32 days #16 tabs cholecalciferol (vitamin D3) 50 50 mcg PO DAILY 90 days #90 caps 12/13/22 mcg (2,000 unit) capsule (Vitamin D3) cyanocobalamin (vitamin B-12) 500 500 mcg sublingual DAILY 90 days 12/13/22 mcg disintegrating #90 tabs tablet,sublingual ondansetron 4 mg disintegrating 4 mg PO Q6H PRN nausea and 01/17/23 tablet vomiting 30 days #20 tabs magnesium oxide 400 mg (241.3 mg 400 mg PO BEDTIME 30 days #30 tabs 01/30/23 magnesium) tablet topiramate 25 mg tablet 25 - 50 mg (1 - 2 x 25 mg) PO 02/27/23 BEDTIME 30 days #60 tabs ibuprofen 400 mg tablet 400 mg PO Q6H PRN pain #90 tabs 04/16/23 levothyroxine 175 mcg tablet 175 mcg PO DAILY #90 tabs 05/15/23 Allergies Allergy/AdvReac Type Severity Reaction Status Date / Time Penicillins Allergy Mild RASH Verified 05/18/23 19:38 penicillin V Allergy Unknown hives Verified 05/18/23 19:38 Review of Systems Constitutional: Constitutional: Reports headache(s) Eyes: Eyes: Denies blurry vision and Reports photophobia ENT: Reports headache(s) Cardiovascular: Cardiovascular: Denies chest pain and Denies dyspnea Respiratory: Respiratory: Denies cough and Denies dyspnea Gastrointestinal: Gastrointestinal: Denies abdominal pain, Reports nausea and Reports vomiting Genitourinary: Genitourinary: Denies difficulty voiding Musculoskeletal: Musculoskeletal: Denies back pain Integumentary/Breasts: Skin/Breast: Denies rash Neurologic: Reports headache(s) PMFSH Past Medical History Medical History Hypothyroidism Non-adherence to medical treatment Obesity Pernicious anemia Polyglandular autoimmune syndrome Premature ovarian failure Vitamin D deficiency Surgical History Hx of tubal ligation Family History Family History Father No problems noted. Mother Migraine headache Other Mental health disorder Substance use disorder Social History Social History Housing: Apartment Alcohol intake: never Patient Tobacco Use Status: Never used Tobacco e-Cigarette/Vaping Use: Never Used Advance Directives: No Advance Directives Information Provided: No Current occupational status: employed Cognitive needs: No Hearing needs: No Vision needs: No Physical Exam ED Vital Signs: Vital Signs - 24 hr 05/18/23 19:36 Temperature 98.0 F Pulse Rate 103 H Respiratory Rate 18 Blood Pressure 152/75 H Pulse Oximetry 100 Oxygen Delivery Method Room Air BMI result Body Mass Index 37.4 Const General: healthy appearing, comfortable, no acute distress, alert and awake Nutritional Appearance: well nourished Orientation/consciousness: patient oriented x3 HENMT Head: Yes normocephalic and Yes atraumatic Throat: Yes posterior oropharynx normal Eyes Eyelids: Yes eyelids normal Conjunctivae: conjunctivae normal Sclerae: sclerae normal Corneas: corneas normal Pupils: Equal, round and reactive pupils present EOM: EOMs intact bilaterally Direct Ophthalmoscopy: photophobia Neck Neck: Yes full ROM Resp Effort & Inspection: normal respiratory effort, able to speak in complete sentences and not labored Cardio Rate: regular rate Rhythm: regular rhythm Skin General skin exam: no rashes or lesions noted and elasticity normal Neuro General: patient oriented x3 Cranial nerves: Yes CN's II-XII intact bilaterally, Yes Equal, round and reactive pupils present and Yes Bilaterally intact EOM present Cognition (Neuro): normal cognition Extrem Other: Moving all extremities well without any obvious deformities Course Course Course Narrative: This is an RME: Additional HPI, ROS, PE not included below will be deferred to primary provider. 38 yo f presents w/ migrane hx of this reports n/v/ d taking nurtec and topamax w/o relief. Feels like typical. NIHSS-0 Plan- labs, migrane coctail Medications Administered Discontinued Medications Generic Name Dose Route Start Last Admin Trade Name Freq PRN Reason Stop Dose Admin Diphenhydramine HCl 50 mg 05/18/23 19:36 05/18/23 21:16 Diphenhydramine Hcl 25 Mg Capsule PO 05/18/23 19:37 50 mg ONCE ONE Administration Ketorolac Tromethamine 30 mg 05/18/23 19:36 05/18/23 21:16 Ketorolac Tromethamine 15 Mg/Ml Vial IM 05/18/23 19:37 30 mg ONCE ONE Administration Metoclopramide HCl 10 mg 05/18/23 19:36 05/18/23 21:15 Metoclopramide Hcl 10 Mg Tablet PO 05/18/23 19:37 10 mg ONCE ONE Administration Medical Decision Making Medical Decision Making [facility] Narrative: 38-year-old female presents for evaluation of a headache. She has a history of migraines headaches and follows with Neurology. She has no neuro deficits or red flag symptoms. I do not see any indication for emergent imaging at this time. Patient's symptoms have almost completely resolved after receiving migraine cocktail. All questions were answered, her labs reviewed and reassuring, she is stable for discharge Differential Diagnosis Differential Diagnoses: The differential diagnosis associated with the presentation includes Acute headache Migraine headache Tension headache Cluster headache Intracranial hemorrhage less likely Lab Data [facility] Lab Attestation statement: I reviewed the patient's lab results. Mild leukocytosis with a white count 11.4, no anemia. Normal platelet count. Normal sodium and potassium. Chloride just above normal at 111. CO2 is just below normal at 18. This is possibly related to hyperventilating, normal renal function 05/18/23 20:52 05/18/23 20:52 Labs: Lab Results 05/18/23 05/18/23 Range/Units 20:52 22:49 WBC 11.4 H (4.8-10.8) X10*3/uL RBC 5.25 (4.20-5.50) X10*6/uL Hgb 13.6 (12.0-16.0) g/dl Hct 41.9 (37.0-47.0) % MCV 79.8 L (80.0-98.0) fL MCH 25.9 L (27.0-33.0) pg MCHC 32.5 (31.0-35.0) g/dl RDW 15.5 (11.0-16.0) % Plt Count 331 (160-400) X10*3/uL MPV 11.1 (9.4-12.3) fL Immature Gran % (Auto) 0.3 (0.0-0.4) % Neut % (Auto) 80.4 H (45-73) % Lymph % (Auto) 14.0 L (20-40) % Duc[place]ne % (Auto) 4.1 (2-11) % Eos % (Auto) 0.6 (0-4) % Baso % (Auto) 0.6 (0-2) % Lymph # (Auto) 1.6 (1.2-4.9) X10*3/uL [place]ne # (Auto) 0.5 (0.1-1.2) X10*3/uL Eos # (Auto) 0.1 (0.0-0.4) X10*3/uL Baso # (Auto) 0.1 (0.0-0.2) X10*3/uL Abs Immat Gran (auto) 0.03 (0.00-0.03) X10*3/uL Absolute Neuts (auto) 9.2 H (2.0-8.3) x10*3/uL Absolute Nucleated RBC 0.000 (0.0-0.012) X10*3/uL Nucleated RBC % (auto) 0.0 (0.0-0.2) /100WBC Sodium 141 (135-145) mmol/L Potassium 3.5 (3.3-5.1) mmol/L Chloride 111 H (96-108) mmol/L Carbon Dioxide 18 L (22-29) mmol/L Anion Gap 16 (12-20) BUN 13 (9-16) mg/dL Creatinine 1.04 (0.5-1.4) mg/dL Estim Creat Clear Calc 76.9 Estimated GFR 59 Random Glucose 118 H (60-115) mg/dL Calcium 9.9 (8.4-10.2) mg/dL Magnesium 2.3 (1.6-2.6) mg/dL Total Bilirubin 0.4 (0.0-1.0) mg/dL AST 16 (5-31) U/L ALT 15 (0-31) U/L Alkaline Phosphatase 98 (39-117) U/L Total Protein 8.0 (6.5-8.0) g/dL Albumin 4.5 (3.5-5.0) g/dL Lipase 31 (8-78) U/L Urine Color Yellow Urine Appearance Clear Urine pH 7.5 (5.0-9.0) Ur Specific [place] >= 1.030 H (1.005-1.025) Urine Protein 30 (1+) H (Neg-Trace) mg/dL Urine Glucose (UA) Negative (Negative) mg/dL Urine Ketones 15 (Negative) mg/dL Urine Blood Negative (Negative) Urine Nitrite Negative (Negative) Ur Leukocyte Esterase Negative (Negative) Urine RBC 0-2 (0-2) /HPF Urine WBC 0-5 (0-5) /HPF Ur Squamous Epith Cells 6-10 (0-2) /HPF Urine Bacteria 2+ (None Seen) Hyaline Casts 0-2 (0-2) /LPF Urine Test NEGATIVE (NEGATIVE) Discharge Plan Discharge Clinical Impression: Acute headache Patient Disposition: Home, Self-Care Instructions: Acute Headache (ED) Additional Instructions: Your workup in the emergency department today was reassuring. Continue your home medications Follow-up with neurology Prescriptions: No Action (DME) blood pressure monitor [Blood Pressure Kit] Kit See Rx Instructions .Route Qty: 1 0RF Rx Instructions: check BP and pulse daily and prn Nurtec ODT 75 mg tablet,disintegrating 75 mg PO Q OTHER DAY PRN (Reason: migraine headache) 32 Days Qty: 16 6RF magnesium oxide 400 mg (241.3 mg magnesium) tablet 400 mg PO BEDTIME 30 Days Qty: 30 6RF Rx Instructions: may hold for loose stools topiramate 25 mg tablet 25 - 50 mg PO BEDTIME 30 Days Qty: 60 3RF ibuprofen 400 mg tablet 400 mg PO Q6H PRN (Reason: pain) Qty: 90 1RF levothyroxine [Levoxyl] 175 mcg tablet 175 mcg PO DAILY Qty: 90 0RF cholecalciferol (vitamin D3) [Vitamin D3] 50 mcg (2,000 unit) capsule 50 mcg PO DAILY 90 Days Qty: 90 1RF cyanocobalamin (vitamin B-12) 500 mcg tablet,disintegrating 500 mcg sublingual DAILY 90 Days Qty: 90 1RF riboflavin (vitamin B2) 400 mg tablet 400 mg PO DAILY 30 Days Qty: 30 6RF ondansetron 4 mg tablet,disintegrating 4 mg PO Q6H PRN (Reason: nausea and vomiting) 30 Days Qty: 20 3RF
[2023-05-18 19:36] VITALS: BP 152/75; PULSE 103; RESP 18; TEMP 36.7; O2SAT 100; BMI 37.4
[2023-05-18 20:56] LABS: MANUAL DIFF FLAG NO
[2023-05-18 20:58] LABS: Basophils Absolute Auto 0.1 X10*3/uL (0.0-0.2); Basophils Percent Auto 0.6 % (0-2); Eosinophils Absolute Auto 0.1 X10*3/uL (0.0-0.4); Eosinophils Percent Auto 0.6 % (0-4); Hematocrit 41.9 % (37.0-47.0); Hemoglobin 13.6 g/dl (12.0-16.0); Imm Gran Abs Auto 0.03 X10*3/uL (0.00-0.03); Imm Gran Pct Auto 0.3 % (0.0-0.4); Lymphocytes Absolute Auto 1.6 X10*3/uL (1.2-4.9); Mean Corpuscular HGB Conc 32.5 g/dl (31.0-35.0); Mean Corpuscular Hemoglobin 25.9 pg (27.0-33.0); Mean Corpuscular Volume 79.8 fL (80.0-98.0); Mean Platelet Volume 11.1 fL (9.4-12.3); Monocytes Absolute Auto 0.5 X10*3/uL (0.1-1.2); Monocytes Percent Auto 4.1 % (2-11); Neutrophils Absolute Auto 9.2 x10*3/uL (2.0-8.3); Neutrophils Percent Auto 80.4 % (45-73); Platelet Count 331 X10*3/uL (160-400); Red Blood Count 5.25 X10*6/uL (4.20-5.50); Red Cell Distribution Width 15.5 % (11.0-16.0); White Blood Count 11.4 X10*3/uL (4.8-10.8)
[2023-05-18 21:14] LABS: Alanine Aminotransferase 15 U/L (0-31); Albumin Level 4.5 g/dL (3.5-5.0); Alkaline Phosphatase 98 U/L (39-117); Anion Gap 16 (12-20); Aspartate Amino Transferase 16 U/L (5-31); Bilirubin Total 0.4 mg/dL (0.0-1.0); Blood Urea Nitrogen 13 mg/dL (9-16); Calcium 9.9 mg/dL (8.4-10.2); Carbon Dioxide 18 mmol/L (22-29); Chloride 111 mmol/L (96-108); Creatinine Clr Calc Pharmacy 76.9; Estimated Glomerular Filt Rate 59; Glucose Random 118 mg/dL (60-115); Lipase 31 U/L (8-78); Magnesium 2.3 mg/dL (1.6-2.6); Potassium 3.5 mmol/L (3.3-5.1); Sodium 141 mmol/L (135-145)
[2023-05-18] MEDS: Metoclopramide HCl 10 MG TABLET PO (21:15)
[2023-05-18] MEDS: Ketorolac Tromethamine 15 MG/ML VIAL 30 MG IM (21:16)
[2023-05-18] MEDS: diphenhydrAMINE HCL 25 MG CAPSULE 50 MG PO (21:16)
[2023-05-18 22:59] LABS: Appearance Urine Clear; Color Urine Yellow; Glucose Urine UA Negative (Negative); Leukocyte Esterase Urine Negative (Negative); Nitrite Urine Negative (Negative); PH 7.5 (5.0-9.0); Specific Gravity - Urine >= 1.030 (1.005-1.025); UMIC TRIGGER UACC YES; UPreg QC Valid YES; Urine Blood Negative (Negative); Urine Ketones 15 mg/dL (Negative); Urine Pregnancy NEGATIVE (NEGATIVE); Urine Protein 30 (1+) mg/dL (Neg-Trace)
[2023-05-18 23:04] LABS: Bacteria Urine 2+ (None Seen); Hyaline Casts Urine 0-2 /LPF (0-2); RBC Urine 0-2 /HPF (0-2); WBC Urine 0-5 /HPF (0-5)
[2023-05-19 00:02] VITALS: BP 130/71; PULSE 98; RESP 16; TEMP 37.1; O2SAT 98
== END 2023-05-19 00:03 | disposition home or self-care (01) ==
PROVIDERS: Physician Assistant; Emergency Provider Internal Medicine; PCP Internal Medicine
DX: G43.909 Migraine, unspecified, not intractable, without status migrainosus (principal); Z79.899 Other long term (current) drug therapy
CPT/HCPCS: 36415; 80053; 81001; 81025; 83690; 83735; 85025; 96372; 99284; J1885

== ENCOUNTER 2023-06-08 09:12 | Outpatient (AMB) | payer OTHER, SELFPAY ==
--- NOTE | 2023-06-08 09:18 | A.OFFVIS_ITS ---
Intake Vital Signs 06/08/23 09:19 Height 5 ft 2 in Weight 205 lb BMI 37.5 Intake Visit Reasons: 5m follow up MigrainesConfirmed Intake Note: Patient presents for 5 month follow up migraines. Patient states the whole summer was great, april came and I've already went to the hospital already. Allergies Penicillins Allergy (Mild, Verified 06/08/23 09:29) RASH penicillin V Allergy (Unknown, Verified 06/08/23 09:29) hives Medication List - Last Reconciled 06/08/23 by YUE Penn blood pressure monitor (Blood Pressure Kit) check BP and pulse daily and prn cholecalciferol (vitamin D3) (Vitamin D3) 50 mcg PO DAILY 90 days cyanocobalamin (vitamin B-12) 500 mcg sublingual DAILY 90 days ibuprofen 400 mg PO Q6H PRN levothyroxine 175 mcg PO DAILY magnesium oxide 400 mg PO BEDTIME 30 days ondansetron 4 mg PO Q6H PRN 30 days riboflavin (vitamin B2) 400 mg PO DAILY 30 days rimegepant (Nurtec ODT) 75 mg PO Q OTHER DAY PRN 32 days topiramate 25 - 50 mg (1 - 2 x 25 mg) PO BEDTIME 30 days HPI HPI Comments History of Present Illness Details 38-yr-old female presents for f/u visit. Pt reports her thyroid supplement has changed and thus she has not picked it up yet, as she felt Levoxyl was always effective. Last TSH was 6 H. Pt reports her migraines were well-controlled over the summer. However, come April she had a severe migraine attack a/w left sided head numbness, N/V, photophobia, phonophobia. This was her usual migraine, but was not more severe and not responding to her usual tx's so she went to the ER. Since, she has been waking up most days with a migraine. She is using the Nurtec, Ibuprofen, Tylenol. Her BP has been better controlled. She is taking Topiramate 50mg qhs- this is causing a intermittent tingling in her legs but also regulating her appetite so she has lost some weight. [facility] Medical History Hypothyroidism Non-adherence to medical treatment Obesity Pernicious anemia Polyglandular autoimmune syndrome Premature ovarian failure Vitamin D deficiency Surgical History Hx of tubal ligation Family History Father No problems noted. Mother Migraine headache Other Mental health disorder Substance use disorder Social History Housing: Apartment Alcohol intake: never Patient Tobacco Use Status: Never used Tobacco e-Cigarette/Vaping Use: Never Used Current occupational status: employed Cognitive needs: No Hearing needs: No Vision needs: No Review of Systems Const All systems reviewed & are unremarkable except as noted in HPI and below Physical Exam Vital Signs: BMI result Body Mass Index 37.5 Const General: cooperative and no acute distress Orientation/consciousness: patient oriented x3 HEENT Head: Yes normocephalic Resp Effort & Inspection: normal respiratory effort and able to speak in complete sentences Neuro General: patient oriented x3, gait normal and CN's II-XI intact bilaterally Cognition (Neuro): normal cognition Motor exam (neuro): 5/5 motor strength present throughout Psych Appearance: grossly normal Mental Status: mental status grossly normal Speech and movement: Normal speech and movement present Affect: normal affect Attitude: cooperative Thought process: Normal thought process present Thought content: Normal thought content present Insight: Good insight present (Psych) Judgement: Good judgement present (Psych) Assessment & Plan Assessment & Plan (1) Migraine without aura: Code(s): G43.009 - Migraine without aura, not intractable, without status migrainosus (2) Paresthesia: Comment: secondary to topiramate use- pt does not want to stop Code(s): R20.2 - Paresthesia of skin Plan F/u w/ Dr Bernardo to discuss her concerns regarding her thyroid regimen- discussed that hyperthyroidism can result in increased headaches. For acute headache treatment: Discussed importance of taking acute medications at the first sign of headache, however stressed importance of avoiding acute medication overuse (especially with combined headache medications). Continue Nurtec ODT 75mg take daily at ONSET of migraine. May adjunct w/ Ibuprofen, Naproxen, Excedrin, or Tylenol- although goal is to use these < 3 days per week. Resume Sumatriptan prn- pt has been normotensive. Zofran 4mg ODT prn. Previous acute migraine medication trials: Sumatriptan 25-50mg- tolerated but ineffective Acute migraine medication contraindications: none at this time. ? For headache prevention medication: Discussed that preventative medications should be taken routinely as prescribed for best effect, it may take several weeks for full effect to take effect. Continue Riboflavin 400mg qam- advised this may cuase changes to urine color. Continue Magnesium 400mg qhs- may hold for loose stools/ Start Ajovy 225mg sc q month. Continue Topiramate 50mg qhs- would not increase further d/t already causing intermittent paresthesias. Reviewed potential adverse effects of betablockers, including but not limited to fatigue, hypotension, slow heart rate, mood changes, respiratory changes. Previous migraine prevention medication trials: Amitriptyline 25mg- caused drowsiness. Propranolol ER 60mg- caused slowness, shaking, and increased BP. Migraine prevention medication contraindications: Would avoid Aimovig d/t h/o constipation. f/u in 3-4 months or sooner prn. Medications: New fremanezumab-vfrm (Ajovy) administer 225mg sc q month 225 mg (1.5 mL) subcut ONCE 30 days 1.5 mL 6RF sumatriptan succinate (0.5 - 1 x 100 mg) 50 - 100 mg orally at onset of headache, may repeat in 2 hrs PRN; max 2 tabs per day or 4 tabs/week (may take with Ibuprofen/Nurtec) 30 days 12 tabs 6RF migraine headache Coding Level of Care Code Est Pt Level 4 (82382) Diagnoses Migraine without aura G43.009 Paresthesia R20.2
[2023-06-08 09:19] VITALS: BMI 37.5
== END 2023-06-08 10:01 | disposition home or self-care (01) ==
PROVIDERS: Visit Provider Nurse Practitioner Family
DX: G43.009 Migraine without aura, not intractable, without status migrainosus (principal); R20.2 Paresthesia of skin
CPT/HCPCS: 99214

== ENCOUNTER → 2023-06-08 09:12 | Outpatient (BNVA) | payer OTHER, SELFPAY | PROVIDERS: Visit Provider Nurse Practitioner Family ==

== ENCOUNTER → 2023-07-03 12:46 | Outpatient (BNVA) | payer OTHER, SELFPAY | PROVIDERS: PCP Internal Medicine; Visit Provider Nurse Practitioner Family ==

== ENCOUNTER 2023-08-14 09:12 | Outpatient (AMB) | payer OTHER, SELFPAY ==
[2023-08-14 10:32] VITALS: BP 120/80; PULSE 67; TEMP 36.9; O2SAT 96; BMI 37.5
--- NOTE | 2023-08-14 10:32 | AM.OFFWIN_ITS ---
Intake Vital Signs 08/14/23 10:32 Height 5 ft 2 in Weight 205 lb BMI 37.5 BP 120/80 Blood Pressure Location Lt brachial Position Sitting Pulse 67 Pulse Source Pulse Oximeter Temp 98.5 F Temp Source Temporal Artery Scan Pulse Oximetry (%) 96 Oxygen Delivery Method Room Air Intake Visit Reasons: EST/sore throat([phone]) Intake Note: pt is here today for sore throat started sunday Patient Tobacco Use Status: Never used Tobacco Allergies Penicillins Allergy (Mild, Verified 08/14/23 11:29) RASH penicillin V Allergy (Unknown, Verified 08/14/23 11:29) hives Medication List - Last Reconciled 08/14/23 by Zain James MD azithromycin take 500 mg today (day 1), then 250 mg for 4 days (days 2-5) PO blood pressure monitor (Blood Pressure Kit) check BP and pulse daily and prn cholecalciferol (vitamin D3) (Vitamin D3) 50 mcg PO DAILY 90 days cyanocobalamin (vitamin B-12) 500 mcg sublingual DAILY 90 days galcanezumab-gnlm (Emgality Pen) 120 mg subcut ONCE 30 days ibuprofen 400 mg PO Q6H PRN Levoxyl (levothyroxine) 175 mcg PO DAILY 90 days NS magnesium oxide 400 mg PO BEDTIME 30 days ondansetron 4 mg PO Q6H PRN 30 days riboflavin (vitamin B2) 400 mg PO DAILY 30 days rimegepant (Nurtec ODT) 75 mg PO Q OTHER DAY PRN 32 days sumatriptan succinate 50 - 100 mg orally at onset of headache, may repeat in 2 hrs PRN; max 2 tabs per day or 4 tabs/week (may take with Ibuprofen/Nurtec) 30 days topiramate 25 - 50 mg (1 - 2 x 25 mg) PO BEDTIME 30 days Do you need a note to return to daycare/school/sports/work: Yes HPI EST/sore throat([phone]) HPI Details Patient presents for a sick visit. Reporting symptoms of sinus congestion, sore throat and difficulty swallowing. Low-grade fever. No family member is sick. No recent travel. Patient reports symptoms of malaise and fatigue. FORMERLY [facility], [facility] Medical History Hypothyroidism Non-adherence to medical treatment Obesity Pernicious anemia Polyglandular autoimmune syndrome Premature ovarian failure Vitamin D deficiency Surgical History Hx of tubal ligation Family History Father No problems noted. Mother Migraine headache Other Mental health disorder Substance use disorder Social History Housing: Apartment Alcohol intake: never Patient Tobacco Use Status: Never used Tobacco e-Cigarette/Vaping Use: Never Used Current occupational status: employed Cognitive needs: No Hearing needs: No Vision needs: No Physical Exam Vital Signs: Last Vital Signs Temp 98.5 F 08/14/23 10:32 Pulse 67 08/14/23 10:32 BP 120/80 08/14/23 10:32 Pulse Ox 96 08/14/23 10:32 Oxygen Delivery Method Room Air 08/14/23 10:32 BMI result Body Mass Index 37.5 Const General: cooperative and healthy appearing Nutritional Appearance: well nourished Orientation/consciousness: patient oriented x3 Limitations: no limitations HEENT Head: Yes normal to inspection Eyes General: appearance normal, both eyes and all related structures Neck Neck: Yes normal visual inspection Chest Chest palpation & inspection: normal palpation of entire chest wall Resp Effort & Inspection: normal respiratory effort Neuro General: patient oriented x3 Results AMB Rapid Strep AMB Rapid Strep Negative Last Edit by Joanna Alarcon CMA on 08/14/23 11:08 Results Reviewed Results Reviewed: Laboratory Last Values Strep Scn Rapid Clinic Negative 08/14/23 11:08 Assessment & Plan Assessment & Plan (1) Upper respiratory tract infection: Code(s): J06.9 - Acute upper respiratory infection, unspecified Plan: Antibiotics ordered. Increase fluid intake. Tylenol for aches and pains. If symptoms worsen, follow-up here for a recheck. Orders: Orders AMB Rapid Strep Screen Today Z13.9 - Encounter for screening, unspecified Zain James MD SARS-CoV2/FLU/RSV Today J06.9 - Acute upper respiratory infection, unspecified YUE Reece Medications: New azithromycin take 500 mg today (day 1), then 250 mg for 4 days (days 2-5) PO 6 tabs 0RF Zain James MD Coding Level of Care Code Est Pt Level 3 (93313) Diagnoses Upper respiratory tract infection J06.9
== END 2023-08-14 11:36 | disposition home or self-care (01) ==
PROVIDERS: PCP Internal Medicine; Visit Provider Internal Medicine
DX: J02.9 Acute pharyngitis, unspecified (principal); J06.9 Acute upper respiratory infection, unspecified
CPT/HCPCS: 87880; 99213

== ENCOUNTER 2023-09-24 08:04 | Outpatient (AMB) | payer OTHER, SELFPAY ==
[2023-09-24 08:06] VITALS: BP 128/82; PULSE 72; TEMP 37.1; O2SAT 97; BMI 37.5
--- NOTE | 2023-09-24 08:06 | MHC.OFFWIV ---
Intake Vital Signs 09/24/23 08:06 Height 5 ft 2 in Weight 205 lb BMI 37.5 BP 128/82 Blood Pressure Location Lt brachial Position Sitting Pulse 72 Pulse Source Pulse Oximeter Temp 98.7 F Temp Source Oral Pulse Oximetry (%) 97 Oxygen Delivery Method Room Air Intake Visit Reasons: EP congestion headache strepth ears [id number] Intake Note: pt is here for congestion, bilateral ear pain, sore throat, cough since sunday night Patient Tobacco Use Status: Never used Tobacco Allergies Penicillins Allergy (Mild, Verified 09/24/23 08:11) RASH penicillin V Allergy (Unknown, Verified 09/24/23 08:11) hives Do you need a note to return to daycare/school/sports/work: Yes HPI HPI Comments History of Present Illness Details Patient presents to the walk in for 2 days cough, congestion, ear pain, sore throat,fatigue, bodyaches. Reports no known sick contacts Denies fever, chest pain, shortness of breath, palpitations, syncope, weakness Has been taking OTC medications with minimal improvement. Called out sick from work, requesting work note FORMERLY [facility] Medical History Hypothyroidism Non-adherence to medical treatment Obesity Pernicious anemia Polyglandular autoimmune syndrome Premature ovarian failure Vitamin D deficiency Surgical History Hx of tubal ligation Family History Father No problems noted. Mother Migraine headache Other Mental health disorder Substance use disorder Social History Housing: Apartment Alcohol intake: never Patient Tobacco Use Status: Never used Tobacco e-Cigarette/Vaping Use: Never Used Current occupational status: employed Cognitive needs: No Hearing needs: No Vision needs: No Review of Systems Const All systems reviewed & are unremarkable except as noted in HPI and below Physical Exam General: awake, alert, oriented. Answers questions appropriately. Fully engaged in examination. Skin: warm, dry, intact HEENT: TMs intact bilaterally, without erythema or exudate. Posterior pharynx without erythema or exudate. Sclera without icterus or injection. Cardiac: External chest normal in appearance. Respiratory: + dry cough. LSCTAB. Abdomen: without gross distension. Neurological: Oriented to person, place, time and situation. Thought process intact. Psychiatric: Appropriate mood and affect. Good judgment and insight. Results Reviewed Results Reviewed: Rapid strep negative Assessment & Plan Assessment & Plan (1) Upper respiratory tract infection: Code(s): J06.9 - Acute upper respiratory infection, unspecified Plan URI, no abx warranted. Rapid strep today negative. Benzonatate 100mg po bid as needed Rest, drink plenty of fluids, tylenol or motrin as needed. Recommend taking OTC nasal decongestants or flonase. Work note provided Follow up with pcp or in clinic for any new or worsening symptoms. Go to ER for shortness of breath, chest pain, palpitations, weakness, dizziness. Medications: New benzonatate 100 mg PO BID PRN 20 caps 0RF cough Coding Level of Care Code Est Pt Level 4 (73708) Diagnoses Upper respiratory tract infection J06.9
== END 2023-09-24 08:28 | disposition home or self-care (01) ==
PROVIDERS: PCP Internal Medicine; Visit Provider Registered Nurse Emergency
DX: J06.9 Acute upper respiratory infection, unspecified (principal)
CPT/HCPCS: 87880; 99213

== ENCOUNTER 2023-09-27 09:20 | Outpatient (AMB) | payer OTHER, SELFPAY ==
--- NOTE | 2023-09-27 09:28 | A.OFFVIS_ITS ---
Intake Vital Signs 09/27/23 09:33 Height 5 ft 2 in Weight 195 lb BMI 35.7 BP 130/80 Blood Pressure Location Lt brachial Position Sitting Pulse 80 Pulse Source Pulse Oximeter Pulse Oximetry (%) 95 Oxygen Delivery Method Room Air Intake Visit Reasons: 5m follow up Migraines/ Confirmed Intake Note: Patient presents for 5 month f/u still getting headaches but not migraines Allergies Penicillins Allergy (Mild, Verified 09/27/23 09:32) RASH penicillin V Allergy (Unknown, Verified 09/27/23 09:32) hives Medication List - Last Reconciled 09/27/23 by Nicole Masterson, SURVEY TECHNOLOGIST benzonatate 100 mg PO BID PRN blood pressure monitor (Blood Pressure Kit) check BP and pulse daily and prn cholecalciferol (vitamin D3) (Vitamin D3) 50 mcg PO DAILY 90 days cyanocobalamin (vitamin B-12) 500 mcg sublingual DAILY 90 days galcanezumab-gnlm (Emgality Pen) 120 mg subcut ONCE 30 days ibuprofen 400 mg PO Q6H PRN levonorgestrel-ethinyl estrad 0.1-20 mg-mcg (Sronyx) tabs PO Levoxyl (levothyroxine) 175 mcg PO DAILY 90 days NS magnesium oxide 400 mg PO BEDTIME 30 days ondansetron 4 mg PO Q6H PRN 30 days riboflavin (vitamin B2) 400 mg PO DAILY 30 days rimegepant (Nurtec ODT) 75 mg orally daily PRN; 32 days MDD 1 tab sumatriptan succinate 50 - 100 mg orally at onset of headache, may repeat in 2 hrs PRN; max 2 tabs per day or 4 tabs/week (may take with Ibuprofen/Nurtec) 30 days topiramate 25 - 50 mg (1 - 2 x 25 mg) PO BEDTIME 30 days HPI HPI Comments History of Present Illness Details 38-yr-old female presents for f/u visit. Pt denies any significant interval medical changes, other than the recent mild cold. Pt reports that since she started Emgality (Ajovy order was switched to Emgality as Ajovy once denied by insurance). she has not had any migraine attacks. Just a mild headache here and there . Is still prone to photophobia and sometimes wakes up with a head heaviness. During her recent cold, she started to have a pounding headache, which responded to Nurtec and Ibuprofen. Neck can be tight at times. No recent episodes of left facial swelling. Baseline headache characteristics: Prodrome of photophobia, worsening ringing tinnitus F/b Severe, throbbing, aching, stabbing pain in Frontal but mostly left sided, left era/eye. A/w Photophobia, phonophobia, generally osmophobic, nausea, vomiting, occas diarrhea, occas allodynia, sometimes frontal scalp numbness/heaviness, blurry vision, worsening tinnitus, internal/external dizziness, brain fog, fatigue, bilateral hand tingling, puffy and watery eyes, neck pain. ? left facial swelling (lasted x's 2 months- was not sure if d/t headache) Baseline number of headache days prior to starting Emgality: 4 migraine headache days per week. [facility] Medical History Hypothyroidism Non-adherence to medical treatment Obesity Pernicious anemia Polyglandular autoimmune syndrome Premature ovarian failure Vitamin D deficiency Surgical History Hx of tubal ligation Family History Father No problems noted. Mother Migraine headache Other Mental health disorder Substance use disorder Social History Housing: Apartment Alcohol intake: never Patient Tobacco Use Status: Never used Tobacco e-Cigarette/Vaping Use: Never Used Current occupational status: employed Cognitive needs: No Hearing needs: No Vision needs: No Physical Exam Vital Signs: Last Vital Signs Pulse 80 09/27/23 09:33 BP 130/80 09/27/23 09:33 Pulse Ox 95 09/27/23 09:33 Oxygen Delivery Method Room Air 09/27/23 09:33 BMI result Body Mass Index 35.7 Const General: cooperative and no acute distress Orientation/consciousness: patient oriented x3 Resp Effort & Inspection: normal respiratory effort and able to speak in complete sentences Neuro General: patient oriented x3 Cranial nerves: Yes CN's II-XII intact bilaterally Cognition (Neuro): normal cognition Psych Appearance: grossly normal Mental Status: mental status grossly normal Speech and movement: Normal speech and movement present Affect: normal affect Attitude: cooperative Assessment & Plan Assessment & Plan (1) Migraine without aura: Code(s): G43.009 - Migraine without aura, not intractable, without status migrainosus (2) Migraine with aura: Code(s): G43.109 - Migraine with aura, not intractable, without status migrainosus (3) Paresthesia: Comment: secondary to topiramate use- pt does not want to stop Code(s): R20.2 - Paresthesia of skin Plan For acute headache treatment: Continue Nurtec ODT 75mg take daily at ONSET of migraine. May adjunct w/ Ibuprofen, Naproxen, Excedrin, or Tylenol- although goal is to use these < 3 days per week. Continue ibuprofen 400 mg q.4 to 6 hours p.r.n.. Continue Sumatriptan prn- pt has been normotensive. Zofran 4mg ODT prn. Previous acute migraine medication trials: Sumatriptan 25-50mg- tolerated but ineffective Acute migraine medication contraindications: none at this time. ? For headache prevention medication: Continue Riboflavin 400mg qam. Continue Magnesium 400mg qhs. Continue Emgality 120 mg sc q month, as patient has had significant reduction in migraine attack frequency. Continue Topiramate 50mg qhs- would not increase further d/t already causing intermittent paresthesias. Monitor paresthesias. Reviewed potential adverse effects of betablockers, including but not limited to fatigue, hypotension, slow heart rate, mood changes, respiratory changes. Previous migraine prevention medication trials: Amitriptyline 25mg- caused drowsiness. Propranolol ER 60mg- caused slowness, shaking, and increased BP. Migraine prevention medication contraindications: Would avoid Aimovig d/t h/o constipation. ? f/u in 6 months or sooner prn. Medications: Changed From ibuprofen 400 mg PO Q6H PRN 90 tabs 1RF pain To ibuprofen 400 mg PO Q6H 30 days PRN 90 tabs 6RF pain Refilled galcanezumab-gnlm (Emgality Pen) 120 mg subcut ONCE 30 days 1 mL 6RF topiramate 25 - 50 mg (1 - 2 x 25 mg) PO BEDTIME 30 days 60 tabs 6RF Coding Level of Care Code Est Pt Level 4 (19872) Diagnoses Migraine without aura G43.009 Migraine with aura G43.109 Paresthesia R20.2
[2023-09-27 09:33] VITALS: BP 130/80; PULSE 80; O2SAT 95; BMI 35.7
== END 2023-09-27 10:14 | disposition home or self-care (01) ==
PROVIDERS: PCP Internal Medicine; Visit Provider Nurse Practitioner Family
DX: G43.009 Migraine without aura, not intractable, without status migrainosus (principal); G43.109 Migraine with aura, not intractable, without status migrainosus; R20.2 Paresthesia of skin
CPT/HCPCS: 99214

== ENCOUNTER → 2023-09-27 09:20 | Outpatient (BNVA) | payer OTHER, SELFPAY | PROVIDERS: PCP Internal Medicine; Visit Provider Nurse Practitioner Family ==

== ENCOUNTER 2023-12-19 10:14 | Outpatient (AMB) | payer OTHER, SELFPAY ==
--- NOTE | 2023-12-19 10:28 | A.OFFPC_ITS ---
Vital Signs 12/19/23 10:29 Height 5 ft 2 in Weight 200 lb 2 oz BMI 36.6 BP 112/82 Blood Pressure Location Rt brachial Position Sitting Pulse 86 Pulse Source Pulse Oximeter Pulse Oximetry (%) 96 Oxygen Delivery Method Room Air Intake Visit Reasons: Annual PE Allergies Penicillins Allergy (Mild, Verified 12/19/23 10:28) RASH penicillin V Allergy (Unknown, Verified 12/19/23 10:28) hives Medication List - Last Reconciled 12/19/23 by Noble Bernardo MD benzonatate 100 mg PO BID PRN blood pressure monitor (Blood Pressure Kit) check BP and pulse daily and prn cholecalciferol (vitamin D3) (Vitamin D3) 50 mcg PO DAILY 90 days cyanocobalamin (vitamin B-12) 500 mcg sublingual DAILY 90 days galcanezumab-gnlm (Emgality Pen) 120 mg subcut ONCE 30 days ibuprofen 400 mg PO Q6H PRN 30 days levonorgestrel-ethinyl estrad 0.1-20 mg-mcg (Sronyx) tabs PO Levoxyl (levothyroxine) 175 mcg PO DAILY 90 days NS magnesium oxide 400 mg PO BEDTIME 30 days ondansetron 4 mg PO Q6H PRN 30 days riboflavin (vitamin B2) 400 mg PO DAILY 30 days rimegepant (Nurtec ODT) 75 mg orally daily PRN; 32 days MDD 1 tab topiramate 25 - 50 mg (1 - 2 x 25 mg) PO BEDTIME 30 days Tobacco use date assessed: 12/19/23 Dental Screening Dental Screen Date: 12/19/23 Did you have a dental visit in the last 12 months?: Yes Did you have a dental problem in the last 6 months where you did not have access to dental care?: No Was dental information given to patient?: Patient has dentist HPI Annual PE HPI Details Patient is a 29-year-old female who came back cruise and is not feeling well She is having upper respiratory symptoms with mild cough nasal congestion sinus pressure No fever mild chills, clear nasal discharge She also has sunburn on her arms for that she is applying 1% hydrocortisone cream Originally this appointment was booked for physical examination but since patient is not feeling well he cancel the physical exam and we will rebook that Flu COVID RSV test taken Meanwhile patient is to continue symptomatic treatment with rest and hydration. FORMERLY [facility] Medical History Non-adherence to medical treatment Obesity Vitamin D deficiency Pernicious anemia Premature ovarian failure Polyglandular autoimmune syndrome Hypothyroidism Surgical History Hx of tubal ligation Family History Father No problems noted. Mother Migraine headache Other Mental health disorder Substance use disorder Social History Housing: Apartment Alcohol intake: never Patient Tobacco Use Status: Never used Tobacco e-Cigarette/Vaping Use: Never Used Current occupational status: employed Cognitive needs: No Hearing needs: No Vision needs: No Questionnaire PHQ-9 Over the last 2 weeks, how often have you been bothered by any of the following problems? 1. Little interest or pleasure in doing things: not at all 2. Feeling down, depressed, or hopeless: not at all 3. Trouble falling or staying asleep, or sleeping too much: not at all 4. Feeling tired or having little energy: not at all 5. Poor appetite or overeating: not at all 6. Feeling bad about yourself - or that you are a failure or have let yourself or your family down: not at all 7. Trouble concentrating on things, such as reading the newspaper or watching television: not at all 8. Moving or speaking so slowly that other people could have noticed. Or the opposite - being so fidgety or restless that you have been moving around a lot more than usual: not at all 9. Thoughts that you would be better off or of hurting yourself in some way: not at all Total score: 0 Depression Screening Interpretation: Negative Depression Screening Done: Yes [id number] - PHQ-9 Billing: Yes Source: Developed by Drs. Basil Orozco, Andreina Castaneda, Rick Diallo and colleagues, with an educational nicholas from [employer]. Thrive Questionnaire Date Thrive assessed: 12/19/23 I am a: Patient What is your living situation today?: I have a steady place to live Within the past 12 months, did the food you bought not last and you didn't have the money to get more?: Never true Within the past 12 months, did you worry whether your food would run out before you got money to buy more?: Never true Do you have trouble paying for medicines?: No Do you have trouble getting transportation to medical appointments?: No Do you have trouble paying your heating and electricity bill?: No Do you have trouble taking care of your child, family member or friend?: No Do you have trouble with day-to-day activities such as bathing, preparing meals, shopping, managing finances, etc.?: No Are you currently unemployed and looking for a job?: No Are you interested in more education?: No Please select the resources that you would like help with: None Currently or been in a relationship where the following occur: no concerns reported THRIVE Score: 0 AUDIT C Alcohol Use Questionnaire (AUDIT-C) 1. How often do you have a drink containing alcohol?: Monthly or less 2. How many drinks containing alcohol do you have on a typical day when you are drinking?: 1 or 2 3. How often do you have six or more drinks on one occasion?: Never Total Score: 1 Score Reviewed/Action Taken: Yes FOREIGN-7 AMB Questionnaire FOREIGN-7 Date FOREIGN - 7 assessed: 12/19/23 Feeling nervous, anxious, or on edge: 0 = Not at all Not being able to stop or control worryin = Not at all Worrying too much about different things: 0 = Not at all Trouble relaxin = Not at all Being so restless that it is hard to sit still: 0 = Not at all Becoming easily annoyed or irritable: 1 = Several days Feeling afraid as if something awful might happen: 0 = Not at all Total FOREIGN-7 score (0-4 normal; 5-9 mild; 10-14 moderate; 15-21 severe): 1 Source: Developed by Drs. Basil Orozco, Andreina Castaneda, Rick Diallo and colleagues, with an educational nicholas from [employer]. FOREIGN-7 Assessment Billing FOREIGN-7 Assessment Tool: FOREIGN-7 Assessment 50062 Review of Systems Const All systems reviewed & are unremarkable except as noted in HPI and below Physical exam (Primary Care) Vital Signs: Last Vital Signs Pulse 86 04/24/24 10:29 BP 112/82 12/19/23 10:29 Pulse Ox 96 12/19/23 10:29 Oxygen Delivery Method Room Air 12/19/23 10:29 BMI result Body Mass Index 36.6 Tobacco/Smoking Status: Tobacco use Status Tobacco use date assessed 12/19/23 12/19/23 10:32 Patient Tobacco Use Status Never used Tobacco 12/19/23 10:32 e-Cigarette/Vaping Use Never Used 12/19/23 10:32 PHQ-9: PHQ-9 Score PHQ-9: Total score 0 12/19/23 10:36 Depression Screening Interpretation: Negative Thrive Assessment: Date of Thrive Assessment Date Thrive assessed 12/19/23 12/19/23 10:36 Currently or been in a relationship where the following occur: no concerns reported Const General: no acute distress HENMT Ears: mastoids normal General nose exam: Normal external nose present Throat: Yes posterior oropharynx abnormal Neck Neck: Yes no lymphadenopathy Resp Effort & Inspection: normal respiratory effort Auscultation: clear to auscultation bilaterally Skin Other: First-degree sunburn both arms anterior aspect, with peeling skin Psych Mental Status: mental status grossly normal Results AMB Rapid Strep AMB Rapid Strep Negative Last Edit by River Sheth MA on 12/19/23 10:38 Results Reviewed Results Reviewed: Laboratory Last Values Strep Scn Rapid Clinic Negative 12/19/23 10:37 Assessment and Plan Assessment & Plan (1) Upper respiratory tract infection: Code(s): J06.9 - Acute upper respiratory infection, unspecified Qualifiers: URI type: unspecified viral URI Qualified Code(s): J06.9 - Acute upper respiratory infection, unspecified (2) First degree sunburn: Code(s): L55.0 - Sunburn of first degree (3) Dry cough: Code(s): R05.8 - Other specified cough Plan Patient is a 29-year-old female who came back cruise and is not feeling well She is having upper respiratory symptoms with mild cough nasal congestion sinus pressure No fever mild chills, clear nasal discharge She also has sunburn on her arms for that she is applying 1% hydrocortisone cream Originally this appointment was booked for physical examination but since patient is not feeling well he cancel the physical exam and we will rebook that Flu COVID RSV test taken Meanwhile patient is to continue symptomatic treatment with rest and hydration. Orders: Orders SARS-CoV2/FLU/RSV Today R09.89 - Other specified symptoms and signs involving the circulatory and respiratory systems Coding Level of Care Code Est Pt Level 3 (17799) Diagnoses Viral upper respiratory tract infection J06.9 URI type: unspecified viral URI First degree sunburn L55.0 Dry cough R05.8 Additional Codes FOREIGN-7 Assessment Billing - FOREIGN-7 Assessment Tool: FOREIGN-7 Assessment 20910 ([id number])
[2023-12-19 10:29] VITALS: BP 112/82; PULSE 86; O2SAT 96; BMI 36.6
== END 2023-12-19 13:30 | disposition home or self-care (01) ==
PROVIDERS: PCP Internal Medicine; Visit Provider Internal Medicine
DX: J06.9 Acute upper respiratory infection, unspecified (principal); L55.0 Sunburn of first degree; R05.8 Other specified cough
CPT/HCPCS: 99213

== ENCOUNTER 2023-12-19 13:39 | Outpatient (REF) | payer OTHER, SELFPAY ==
[2023-12-19 14:43] LABS: Influenza A PCR NEGATIVE (Negative); Influenza B PCR NEGATIVE (Negative); Resp Syncy Virus RNA Qual PCR NEGATIVE (Negative); SARS COV2 PCR INHOUSE POSITIVE (Negative)
== END 2023-12-19 13:40 | disposition home or self-care (01) ==
LOC: HO.HMGCLNP 13:39
PROVIDERS: Nurse Practitioner Primary Care; Visit Provider Internal Medicine
DX: J06.9 Acute upper respiratory infection, unspecified (principal); R09.89 Other specified symptoms and signs involving the circulatory and respiratory systems
CPT/HCPCS: 0241U

== ENCOUNTER 2024-04-02 09:23 | Outpatient (AMB) | payer OTHER, SELFPAY ==
[2024-04-02 09:25] VITALS: BMI 36.6
--- NOTE | 2024-04-02 09:25 | A.OFFVIS_ITS ---
Vital Signs 04/02/24 09:25 Height 5 ft 2 in Weight 200 lb BMI 36.6 Intake Visit Reasons: 6 mo f/u-CONF Intake Note: Patient presents for 6 month follow up.patient has no issues headaches are much better. Allergies Penicillins Allergy (Mild, Verified 04/02/24 09:30) RASH penicillin V Allergy (Unknown, Verified 04/02/24 09:30) hives Medication List - Last Reconciled 04/02/24 by Nicole Masterson, YUE benzonatate 100 mg PO BID PRN blood pressure monitor (Blood Pressure Kit) check BP and pulse daily and prn cholecalciferol (vitamin D3) (Vitamin D3) 50 mcg PO DAILY 90 days cyanocobalamin (vitamin B-12) 500 mcg sublingual DAILY 90 days galcanezumab-gnlm (Emgality Pen) 120 mg subcut ONCE 30 days ibuprofen 400 mg PO Q6H PRN 30 days levonorgestrel-ethinyl estrad 0.1-20 mg-mcg (Sronyx) tabs PO Levoxyl (levothyroxine) 175 mcg PO DAILY 90 days NS magnesium oxide 400 mg PO BEDTIME 30 days ondansetron 4 mg PO Q6H PRN 30 days riboflavin (vitamin B2) 400 mg PO DAILY 30 days rimegepant (Nurtec ODT) 75 mg orally daily PRN; 32 days MDD 1 tab sumatriptan succinate 50 - 100 mg orally at onset of headache, may repeat in 2 hrs PRN; max 2 tabs per day or 4 tabs/week (may take with Ibuprofen/Nurtec) 30 days topiramate 25 - 50 mg (1 - 2 x 25 mg) PO BEDTIME 30 days HPI Comments Details: 39-yr-old female presents for f/u visit. Pt denies any significant interval medical changes. Pt reports overall her migraines are overall well-controlled. Some days, she may wake up with a feeling that a headache will come on, but then subsides. She has needed to use her Nurtec 3-4 days in the last month, which is effective. She rarely has needed to take the Sumatripatn with the Nurtec- last time was in October or November. The heat and humidity can trigger migraine.She does drive a school bus. She is tolerating Topiramate, Emgality well. Wonders if she still needs to take 2 tabs of Topiramate 25mg. Baseline headache characteristics: Prodrome of photophobia, worsening ringing tinnitus F/b Severe, throbbing, aching, stabbing pain in Frontal but mostly left sided, left era/eye. A/w Photophobia, phonophobia, generally osmophobic, nausea, vomiting, occas diarrhea, occas allodynia, sometimes frontal scalp numbness/heaviness, blurry vision, worsening tinnitus, internal/external dizz iness, brain fog, fatigue, bilateral hand tingling, puffy and watery eyes, neck pain. ? left facial swelling (lasted x's 2 months- was not sure if d/t headache) PFSH Medical History Non-adherence to medical treatment Obesity Vitamin D deficiency Pernicious anemia Premature ovarian failure Polyglandular autoimmune syndrome Hypothyroidism Surgical History Hx of tubal ligation Family History Father No problems noted. Mother Migraine headache Other Mental health disorder Substance use disorder Social History Housing: Apartment Alcohol intake: never Patient Tobacco Use Status: Never used Tobacco e-Cigarette/Vaping Use: Never Used Current occupational status: employed Cognitive needs: No Hearing needs: No Vision needs: No Physical Exam Vital Signs: BMI result Body Mass Index 36.6 Const General: cooperative and no acute distress Orientation/consciousness: patient oriented x3 Resp Effort & Inspection: normal respiratory effort and able to speak in complete sentences Neuro General: patient oriented x3 Cranial nerves: Yes CN's II-XII intact bilaterally Cognition (Neuro): normal cognition Psych Appearance: grossly normal Mental Status: mental status grossly normal Speech and movement: Normal speech and movement present Affect: normal affect Attitude: cooperative Assessment & Plan Assessment & Plan (1) Migraine with aura: Code(s): G43.109 - Migraine with aura, not intractable, without status migrainosus Category: Medical (2) Paresthesia: Comment: secondary to topiramate use- pt does not want to stop Code(s): R20.2 - Paresthesia of skin Category: Medical Plan For acute headache treatment: Continue Nurtec ODT 75mg take daily at ONSET of migraine. May adjunct w/ Ibuprofen, Naproxen, Excedrin, or Tylenol- although goal is to use these < 3 days per week. Continue ibuprofen 400 mg q.4 to 6 hours p.r.n.. Continue Sumatriptan prn- pt has been normotensive. Zofran 4mg ODT prn. Previous acute migraine medication trials: Sumatriptan 25-50mg- tolerated but ineffective Acute migraine medication contraindications: none at this time. ? For headache prevention medication: Continue Riboflavin 400mg qam. Continue Magnesium 400mg qhs. Continue Emgality 120 mg sc q month, as patient has had significant reduction in migraine attack frequency. Continue Topiramate 50mg qhs- would not increase further d/t already causing intermittent paresthesias. Monitor paresthesias. She can consider decreasing to 25mg once the summer passes and if migraine attcaks are still below 4 times per month. Reviewed potential adverse effects of betablockers, including but not limited to fatigue, hypotension, slow heart rate, mood changes, respiratory changes. Previous migraine prevention medication trials: Amitriptyline 25mg- caused dr owsiness. Propranolol ER 60mg- caused slowness, shaking, and increased BP. Migraine prevention medication contraindications: Would avoid Aimovig d/t h/o constipation. ? f/u in 6 months or sooner prn. Medications: Refilled sumatriptan succinate (0.5 - 1 x 100 mg) 50 - 100 mg orally at onset of headache, may repeat in 2 hrs PRN; max 2 tabs per day or 4 tabs/week (may take with Ibuprofen/Nurtec) 30 days 12 tabs 6RF migraine headache magnesium oxide may hold for loose stools 400 mg PO BEDTIME 30 days 30 tabs 6RF riboflavin (vitamin B2) 400 mg PO DAILY 30 days 30 tabs 6RF topiramate 25 - 50 mg (1 - 2 x 25 mg) PO BEDTIME 30 days 60 tabs 6RF ibuprofen 400 mg PO Q6H 30 days PRN 90 tabs 6RF pain rimegepant (Nurtec ODT) 75 mg orally daily PRN; 32 days 16 tabs 6RF migraine headache MDD 1 tab ondansetron 4 mg PO Q6H 30 days PRN 20 tabs 6RF nausea and vomiting galcanezumab-gnlm (Emgality Pen) 120 mg subcut ONCE 30 days 1 mL 6RF Coding Level of Care Code Est Pt Level 4 (87999) Diagnoses Migraine with aura G43.109 Paresthesia R20.2
== END 2024-04-02 10:13 | disposition home or self-care (01) ==
PROVIDERS: PCP Internal Medicine; Visit Provider Nurse Practitioner Family
DX: G43.109 Migraine with aura, not intractable, without status migrainosus (principal); R20.2 Paresthesia of skin
CPT/HCPCS: 99214

== ENCOUNTER → 2024-04-02 09:23 | Outpatient (BNVA) | payer OTHER, SELFPAY | PROVIDERS: PCP Internal Medicine; Visit Provider Nurse Practitioner Family ==

== ENCOUNTER 2024-10-08 10:18 | Outpatient (AMB) | payer OTHER, SELFPAY ==
--- NOTE | 2024-10-08 10:24 | MHC.OFFVIS ---
Vital Signs 10/08/24 10:31 Height 5 ft 2 in Weight 206 lb BMI 37.7 BP 120/92 H Blood Pressure Location Lt brachial Position Sitting Pulse 73 Pulse Source Pulse Oximeter Pulse Oximetry (%) 96 Oxygen Delivery Method Room Air Intake Visit Reasons: Follow up Medical Insurance Collector Required: No Accompanied by: Self / Same As Patient Allergies Penicillins Allergy (Mild, Verified 10/08/24 10:28) RASH penicillin V Allergy (Unknown, Verified 10/08/24 10:28) hives Medication List - Last Reconciled 10/08/24 by YUE [facility] blood pressure monitor (Blood Pressure Kit) check BP and pulse daily and prn cholecalciferol (vitamin D3) (Vitamin D3) 50 mcg PO DAILY 90 days cyanocobalamin (vitamin B-12) 500 mcg sublingual DAILY 90 days galcanezumab-gnlm (Emgality Pen) 120 mg subcut ONCE 30 days ibuprofen 400 mg PO Q6H PRN 30 days Levoxyl (levothyroxine) 175 mcg PO DAILY 90 days NS magnesium oxide 400 mg PO BEDTIME 30 days ondansetron 4 mg PO Q6H PRN 30 days riboflavin (vitamin B2) 400 mg PO DAILY 30 days rimegepant (Nurtec ODT) 75 mg orally daily PRN; 32 days MDD 1 tab sumatriptan succinate 50 - 100 mg orally at onset of headache, may repeat in 2 hrs PRN; max 2 tabs per day or 4 tabs/week (may take with Ibuprofen/Nurtec) 30 days topiramate 25 - 50 mg (1 - 2 x 25 mg) PO BEDTIME 30 days HPI Comments Details: 39-yr-old female presents for f/u visit for migraine. Pt reports she had a recent [facility] was [facility] woman ER eval for exacerbation of chronic pelvic pain, which she thought was due to a left ovarian cyst. However, they do not feel that the cyst was causative, but rather possibly a pelvic also spasm. They did suggest, the patient had follow-up for chronic constipation and pelvic floor therapy. Patient does not endorse that she can go a whole week without having a bowel movement. Pt reports overall her migraines are overall well-controlled. She is typically having 1 -2 headache days per week- but sometimes more with the colder weather, which respond well to her as needed migraine medications. She has noticed that the cold weather and snow/light has been easily triggering headaches. Baseline headache characteristics: Prodrome of photophobia, worsening ringing tinnitus F/b Severe, throbbing, aching, stabbing pain in Frontal but mostly left sided, left era/eye. A/w Photophobia, phonophobia, generally osmophobic, nausea, vomiting, occas diarrhea, occas allodynia, sometimes frontal scalp numbness/heaviness, blurry vision, worsening tinnitus, internal/external dizziness, brain fog, fatigue, bilateral hand tingling, puffy and watery eyes, neck pain. ? left facial swelling (lasted x's 2 months- was not sure if d/t headache) PFSH Medical History Non-adherence to medical treatment Obesity Vitamin D deficiency Pernicious anemia Premature ovarian failure Polyglandular autoimmune syndrome Hypothyroidism Surgical History Hx of tubal ligation Family History Father No problems noted. Mother Migraine headache Other Mental health disorder Substance use disorder Social History Housing: Apartment Alcohol intake: never Patient Tobacco Use Status: Never used Tobacco e-Cigarette/Vaping Use: Never Used Current occupational status: employed Cognitive needs: No Hearing needs: No Vision needs: No Physical Exam Vital Signs: Last Vital Signs Pulse 73 10/08/24 10:31 BP 120/92 H 10/08/24 10:31 Pulse Ox 96 10/08/24 10:31 Oxygen Delivery Method Room Air 10/08/24 10:31 BMI result Body Mass Index 37.7 Const General: cooperative and no acute distress Orientation/consciousness: patient oriented x3 Resp Effort & Inspection: normal respiratory effort and able to speak in complete sentences Neuro General: patient oriented x3 Cranial nerves: Yes CN's II-XII intact bilaterally Cognition (Neuro): normal cognition Psych Appearance: grossly normal Mental Status: mental status grossly normal Speech and movement: Normal speech and movement present Affect: normal affect Attitude: cooperative Assessment & Plan Assessment & Plan (1) Constipation: Code(s): K59.00 - Constipation, unspecified Category: Medical (2) Chronic pelvic pain in female: Code(s): R10.2 - Pelvic and perineal pain; G89.29 - Other chronic pain Category: Medical (3) Migraine with aura: Code(s): G43.109 - Migraine with aura, not intractable, without status migrainosus Category: Medical (4) Paresthesia: Comment: secondary to topiramate use- pt does not want to stop Code(s): R20.2 - Paresthesia of skin Category: Medical Plan For constipation: Take the liberty of requesting GI consult. For overall migraine management: Reviewed nonpharmacological strategies to reduce migraine triggers/burden. Including, warming devices, using he insufflating had since scars when outside, trying migraine specific FL-41 blue light blocking glasses, and/or trying a neuromodulation device such as cephaly. For acute headache treatment: Continue Nurtec ODT 75mg take daily at ONSET of migraine. May adjunct w/ Ibuprofen, Naproxen, Excedrin, or Tylenol- although goal is to use these < 3 days per week. Continue ibuprofen 400 mg q.4 to 6 hours p.r.n.. Continue Sumatriptan prn- BP has been normotensive. Zofran 4mg ODT prn. Previous acute migraine medication trials: Sumatriptan 25-50mg- tolerated but not fully effective Acute migraine medication contraindications: none at this time. ? For headache prevention medication: Continue Riboflavin 400mg qam. Continue Magnesium 400mg qhs. Continue Emgality 120 mg sc q month, as patient has had significant reduction in migraine attack frequency. Continue Topiramate 50mg qhs- would not increase further d/t already causing intermittent paresthesias. Monitor paresthesias. Previous migraine prevention medication trials: Amitriptyline 25mg- caused drowsiness. Propranolol ER 60mg- caused slowness, shaking, and increased BP. Migraine prevention medication contraindications: Would avoid Aimovig d/t h/o constipation. ? f/u in 6 months or sooner prn. Orders: Referrals Gastroenterology Referral G89.29 - Other chronic pain, K59.00 - Constipation, unspecified, R10.2 - Pelvic and perineal pain Medications: Refilled topiramate 25 - 50 mg (1 - 2 x 25 mg) PO BEDTIME 30 days 60 tabs 6RF rimegepant (Nurtec ODT) 75 mg orally daily PRN; 32 days 16 tabs 6RF migraine headache MDD 1 tab magnesium oxide may hold for loose stools 400 mg PO BEDTIME 30 days 30 tabs 6RF galcanezumab-gnlm (Emgality Pen) 120 mg subcut ONCE 30 days 1 mL 6RF ondansetron 4 mg PO Q6H 30 days PRN 20 tabs 6RF nausea and vomiting sumatriptan succinate (0.5 - 1 x 100 mg) 50 - 100 mg orally at onset of headache, may repeat in 2 hrs PRN; max 2 tabs per day or 4 tabs/week (may take with Ibuprofen/Nurtec) 30 days 12 tabs 6RF migraine headache riboflavin (vitamin B2) 400 mg PO DAILY 30 days 30 tabs 6RF Coding Level of Care Code Est Pt Level 4 (51278) Diagnoses Constipation K59.00 Chronic pelvic pain in female R10.2; G89.29 Migraine with aura G43.109 Paresthesia R20.2
[2024-10-08 10:31] VITALS: BP 120/92; PULSE 73; O2SAT 96; BMI 37.7
--- OUTSIDE RECORDS SUMMARY | 2024-10-08 12:07 | XMS_ITS | Clinical Summary ---
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 05/25/20 23 Active B-12 Microlozenge 500 MCG sublingual tablet DISSOLVE 1 LOZENGE BY MOUTH DAILY 08/24/20 23 Active Emgality 120 MG/ML auto-injector INJECT 120 MG SUBCUTANEOUSLY ONCE FOR 30 DAYS 11/02/19 24 Active ibuprofen 400 MG tablet 11/22/19 24 Active Levoxyl 150 MCG tablet Take 150 mcg by mouth in the morning. 03/22/20 23 Active magnesium oxide (Mag-Ox) 400 (240 Mg) MG tablet TAKE 1 TABLET ORALLY BEDTIME FOR 30 DAYS MAY HOLD FOR LOOSE STOOLS 07/23/20 23 Active ondansetron ODT (Zofran-ODT) 4 MG disintegrating tablet TAKE 1 TABLET BY MOUTH EVERY 6 HOURS NEEDED FOR NAUSEA AND VOMITING FOR 30 DAYS 05/24/20 23 Active riboflavin (Vitamin B-2) 400 MG tablet Take 1 tablet by mouth in the morning. 07/22/20 23 Active Nurtec 75 MG tablet dispersible NEEDED FOR MIGRAINE HEADACHE FOR 32 DAYS, MAX DAILY DOSE: 1 TABLET BY MOUTH EVERY DAY NEEDED 08/28/19 24 Active topiramate (Topamax) 25 MG tablet TAKE 1 TO 2 TABLETS ORALLY AT BEDTIME FOR 30 DAYS 10/25/19 24 Active Active Problems Problem Noted Date Diagnosed Date Common migraine 11/26/2023 Social History Tobacco Use Types Packs/Day Years Used Date Smoking Tobacco: Never Smokeless Tobacco: Never Tobacco Cessation:Counseling Given: Not Answered Alcohol Use Standard Drinks/Week Comments Not Currently 0 (1 standard drink = 0.6 oz pur e alcohol) Comments Unknown Sex and Gender Information Value Date Recorded Sex Assigned at Female 06/26/2022 10:17 AM EDT Legal Sex Female 10:17 AM EDT Gender Identity Female 06/26/2022 10:17 AM EDT Sexual Orientation Straight 06/26/2022 10 :17 AM EDT Last Filed Vital Signs Vital Sign Reading Time Taken Comments Blood Pressure 122/62 04/16/2024 11:11 AM EDT Pulse 65 04/16/2024 11:11 AM EDT Temperature - - Respiratory Rate - - Oxygen Saturation - - Inhaled Oxygen Concentration - - Weight - - Height - - Body Mass Index - - Plan of Treatment Upcoming Encounters Date Type Department Care Team (Late st Contact Info) Description 10/17/2024 10:00 AM EST Office Visit [facility] [address] [place] [address] [facility] Maintenance Due Date Last Done Comments Depression Screening 1984 HIV Screening 1984 SDOH Screening 1984 Alcohol/Substance Use Screening 1996 Family Planning (PISQ) 01/29/1999 Hepatitis C Screening 01/29/2002 DTaP/Tdap/Td Vaccines (1 - Tdap) 01/29/2003 Hepatitis B Vaccines (1 of 3 - 19+ 3-dose series) 01/29/2003 Pap Smear 01/29/2005 Cervical Cancer Screening 01/29/2014 HPV/Cotest 01/29/2014 Mammogram 2024 COVID-19 Vaccine (4 - 2023-2 5 season) 2024 08/04/2021, 12/11/2020, 11/20/2020 Influenza Vaccine (#1) 2024 7, 07/09/2015 Dental Oral Exam 10/18/2024 04/16/2024 Dental Prophylaxis 10/18/2024 04/16/2024 Tobacco Screening 04/16/2025 04/16/2024 Dental X-Ray: Bitewings 04/17/2025 04/16/20 24, 11/26/2023 Dental X-Ray: Full Mouth 04/17/2027 04/16/2024 Zoster Vaccines (1 of 2) 01/29/2034 RSV Patients and Patients Aged 60 years or older (1 - 1-dose 75+ series) 01/29/2059 HIB Vaccines Aged Out No longer eligi ble based on patient's age to complete this topic HPV Vaccines Aged Out No longer eligi ble based on patient's age to complete this topic Hepatitis A Vaccines Aged Out No long er eligible based on patient's age to complete this topic IPV Vaccines Aged Out No longer eligi ble based on patient's age to complete this topic Meningococcal Vaccine Aged Out No juana ronny eligible based on patient's age to complete this topic Pneumococcal Vaccine: Pediatrics (0 to 5 Years) and At-Risk Patients (6 to 49) Years) Aged Out No longer eligible b ased on patient's age to complete this topic RSV under 20 months Aged Out No longe r eligible based on patient's age to complete this topic Rotavirus Vaccines Aged Out No longer eligible based on patient's age to complete this topic Procedures Procedure Name Priority Date/Time Associated Diagnosis Comments PROPHYLAXIS - ADULT Routine 04/16/2024 1 1:00 AM EDT DIAGNOSTIC - DIAGNOSTIC IMAGING - INTRAORAL - COMPREHENSIVE SERIES OF RADIOGRAPHIC IMAGES Routine 04/16/2024 11:00 AM EDT PERIODIC ORAL EVALUATION - ESTABLISHED PATIENT Routine 04/16/2024 11:00 AM EDT from Last 3 Months or Most Recently Relevant to Health Maintenance Insurance DENTAL - [facility] PARTIAL (MEDICAID)
== END 2024-10-08 11:03 | disposition home or self-care (01) ==
PROVIDERS: PCP Internal Medicine; Visit Provider Nurse Practitioner Family
DX: K59.00 Constipation, unspecified (principal); R10.2 Pelvic and perineal pain; G89.29 Other chronic pain; G43.109 Migraine with aura, not intractable, without status migrainosus; R20.2 Paresthesia of skin
CPT/HCPCS: 99214

== ENCOUNTER → 2024-10-08 10:18 | Outpatient (BNVA) | payer OTHER, SELFPAY | PROVIDERS: PCP Internal Medicine; Visit Provider Nurse Practitioner Family ==

== ENCOUNTER 2025-01-07 09:24 | Outpatient (AMB) | payer OTHER, SELFPAY ==
--- NOTE | 2025-01-07 09:26 | A.OFFVIS_ITS ---
Vital Signs 01/07/25 09:27 Height 5 ft 2 in Weight 209 lb 7.026 oz BMI 38.3 BP 116/74 Blood Pressure Location Lt brachial Position Sitting Pulse 64 Intake Visit Reasons: Constipation/perineal pain Intake Note: Toribio presents in the office as a new patient for constipation and perineal pains. CC: Constipation, pains in the stomach, Sometimes pains near her rectum - states that she does not have blood frequent it is not an issue for her . Field Support Specialist Required: No Allergies Penicillins Allergy (Mild, Verified 01/07/25 09:29) RASH penicillin V Allergy (Unknown, Verified 01/07/25 09:29) hives HPI Comments Details: 39 y.o F who has been referred from Neuro office for chronic constipation. Reports has had longstanding constipation since she gave brith to her first child. almost 19 years ago. Goes 7-8 days without having any BM. Assoc with bloating, nausea and abd discomfort. Sometimes has to digitalize. No change in appetite with that. Takes senna 2 tabs 1-2 times a week with which she does have normal BM. Doesnt take it consistently to avoid diarrhea. Diet: minimal fiber in her diet. Most days no fruits, vegetables or salads. [facility] Medical History Non-adherence to medical treatment Obesity Vitamin D deficiency Pernicious anemia Premature ovarian failure Polyglandular autoimmune syndrome Hypothyroidism Surgical History Hx of tubal ligation Family History Father No problems noted. Mother Migraine headache Other Mental health disorder Substance use disorder Social History Housing: Apartment Alcohol intake: never Patient Tobacco Use Status: Never used Tobacco e-Cigarette/Vaping Use: Never Used Current occupational status: employed Cognitive needs: No Hearing needs: No Vision needs: No Review of Systems Const All systems reviewed & are unremarkable except as noted in HPI and below Physical Exam Vital Signs: Last Vital Signs Pulse 64 01/07/25 09:27 BP 116/74 01/07/25 09:27 BMI result Body Mass Index 38.3 No apparent distress Nonicteric Abdomen soft, nondistended rectal (Halina Tyler MA present): ext hemorrhoids, internal hemorrhoids on digital exam, minimal descent of pelvic floor on bear down, good anal squeeze Alert and oriented x3, normal gait Assessment & Plan Assessment & Plan (1) Constipation: Code(s): K59.00 - Constipation, unspecified Category: Medical (2) Hemorrhoid: Code(s): K64.9 - Unspecified hemorrhoids Category: Medical (3) Chronic pelvic pain in female: Code(s): R10.2 - Pelvic and perineal pain; G89.29 - Other chronic pain Category: Medical Plan Constipation likely 2/2 lack of hydration and fiber in diet. May also have some pelvic floro disorder based on exam. Plan: - Increase hydration - Take fiber 1 tbsp mixed in a cup of water daily - Take miralax 17g mixed in a cup of water every other day - Elevate legs while having a BM - pelvic floor exercises videos reviewed - Follow up in 3 months to review response and indication to add secretagogue Orders: Orders TSH reflex Free T4 Today K59.00 - Constipation, unspecified Calcium Today K59.00 - Constipation, unspecified Basic Metabolic Panel Today K59.00 - Constipation, unspecified Magnesium Today K59.00 - Constipation, unspecified Coding Level of Care Code New Pt Level 4 (11413) Diagnoses Constipation K59.00 Hemorrhoid K64.9 Chronic pelvic pain in female R10.2; G89.29
[2025-01-07 09:27] VITALS: BP 116/74; PULSE 64; BMI 38.3
== END 2025-01-07 09:51 | disposition home or self-care (01) ==
LOC: HO.HGI 09:24
PROVIDERS: PCP Internal Medicine; Visit Provider Internal Medicine
DX: K59.00 Constipation, unspecified (principal); K64.9 Unspecified hemorrhoids; R10.2 Pelvic and perineal pain; G89.29 Other chronic pain
CPT/HCPCS: 99204

== ENCOUNTER → 2025-01-07 09:24 | Outpatient (BNVA) | payer OTHER, SELFPAY | PROVIDERS: PCP Internal Medicine; Visit Provider Internal Medicine | DX: K59.00 Constipation, unspecified (principal); K64.9 Unspecified hemorrhoids; R10.2 Pelvic and perineal pain; G89.29 Other chronic pain | CPT/HCPCS: 99202 ==

== ENCOUNTER 2025-04-06 09:13 | Outpatient (AMB) | payer OTHER, SELFPAY ==
[2025-04-06 09:16] VITALS: BP 120/88; PULSE 77; O2SAT 98; BMI 38.1
--- NOTE | 2025-04-06 09:16 | MHC.OFFVIS ---
Vital Signs 04/06/25 09:16 Height 5 ft 2 in Weight 208 lb 6 oz BMI 38.1 BP 120/88 Blood Pressure Location Rt brachial Position Sitting Pulse 77 Pulse Source Pulse Oximeter Pulse Oximetry (%) 98 Oxygen Delivery Method Room Air Intake Visit Reasons: 6 mo follow up Intake Note: Patient presents follow up Migraine. GI seen 01/07. Buyers' Agent Required: No Accompanied by: Self / Same As Patient Allergies Penicillins Allergy (Mild, Verified 04/06/25 09:21) RASH penicillin V Allergy (Unknown, Verified 04/06/25 09:21) hives Medication List - Last Reconciled 04/06/25 by YUE [facility] blood pressure monitor (Blood Pressure Kit) check BP and pulse daily and prn cholecalciferol (vitamin D3) (Vitamin D3) 50 mcg PO DAILY 90 days cyanocobalamin (vitamin B-12) 500 mcg sublingual DAILY 90 days galcanezumab-gnlm (Emgality Pen) 120 mg subcut ONCE 30 days ibuprofen 400 mg PO Q6H PRN 30 days Levoxyl (levothyroxine) 175 mcg PO DAILY 90 days NS magnesium oxide 400 mg PO BEDTIME 90 days ondansetron 4 mg PO Q6H PRN 30 days riboflavin (vitamin B2) 400 mg PO DAILY 90 days rimegepant (Nurtec ODT) 75 mg orally daily PRN; 32 days MDD 1 tab sumatriptan succinate 50 - 100 mg orally at onset of headache, may repeat in 2 hrs PRN; max 2 tabs per day or 4 tabs/week (may take with Ibuprofen/Nurtec) 30 days topiramate 25 - 50 mg (1 - 2 x 25 mg) PO BEDTIME 30 days HPI Comments Details: 40-yr-old female presents for f/u visit for migraine. Pt reports she had a Mirena IUD placement about a month ago to help manage menorrghia, however hse continues to have a daily period. She did see GI, who asked her to continue the senna. She continue sto do the pelvic floor therapy. Pt reports overall her migraines are overall well-controlled. In the past month, 2-3 migraine attacks, lasting a few hours. Migraine is present in ferny am, takes Nurtec w/ the ibuprofen and then headcahe subsides, but comes back stronger ta the end of the day, and takes an Ibuprofen and stays in the dark. Not using the sumatriptan right now. She notes that she is noticing more blurry vision, w/wo headache or headache. She is not sure if this is d/t the lighting or the sun. She does not wear glasses, and has She is typically having 1 -2 headache days per week- but sometimes more with the colder weather, which respond well to her as needed migraine medications. She notes light and heat/humidity can easily triggering headaches. States she is having just occassional Baseline headache characteristics: Prodrome of photophobia, worsening ringing tinnitus F/b Severe, throbbing, aching, stabbing pain in Frontal but mostly left sided, left era/eye. A/w Photophobia, phonophobia, generally osmophobic, nausea, vomiting, occas diarrhea, occas allodynia, sometimes frontal scalp numbness/heaviness, blurry vision, worsening tinnitus, internal/external dizziness, brain fog, fatigue, bilateral hand tingling, puffy and watery eyes, neck pain. ? left facial swelling (lasted x's 2 months- was not sure if d/t headache) ON LICENSE OF [facility] Medical History Non-adherence to medical treatment Obesity Vitamin D deficiency Pernicious anemia Premature ovarian failure Polyglandular autoimmune syndrome Hypothyroidism Surgical History Hx of tubal ligation Family History Father No problems noted. Mother Migraine headache Other Mental health disorder Substance use disorder Social History Housing: Apartment Alcohol intake: never Patient Tobacco Use Status: Never used Tobacco e-Cigarette/Vaping Use: Never Used Current occupational status: employed Cognitive needs: No Hearing needs: No Vision needs: No Physical Exam Vital Signs: Last Vital Signs Pulse 77 04/06/25 09:16 BP 120/88 04/06/25 09:16 Pulse Ox 98 04/06/25 09:16 Oxygen Delivery Method Room Air 04/06/25 09:16 BMI result Body Mass Index 38.1 Const General: cooperative and no acute distress Orientation/consciousness: patient oriented x3 Resp Effort & Inspection: normal respiratory effort and able to speak in complete sentences Neuro General: patient oriented x3 and moves all extremities Cranial nerves: Yes CN's II-XII intact bilaterally Cognition (Neuro): normal cognition Motor exam (neuro): 5/5 motor strength present throughout Psych Appearance: grossly normal Mental Status: mental status grossly normal Speech and movement: Normal speech and movement present Affect: normal affect Attitude: cooperative Assessment & Plan Assessment & Plan (1) Migraine without aura: Code(s): G43.009 - Migraine without aura, not intractable, without status migrainosus Category: Medical Qualifiers: Status migrainosus presence: without status migrainosus Intractability: not intractable Qualified Code(s): G43.009 - Migraine without aura, not intractable, without status migrainosus (2) Migraine with aura: Code(s): G43.109 - Migraine with aura, not intractable, without status migrainosus Category: Medical Qualifiers: Status migrainosus presence: without status migrainosus Intractability: not intractable Qualified Code(s): G43.109 - Migraine with aura, not intractable, without status migrainosus (3) Paresthesia: Comment: secondary to topiramate use- pt does not want to stop Code(s): R20.2 - Paresthesia of skin Category: Medical Plan For constipation: Follow-up with GI consult as scheduled. For vision changes: Will request eye exam as scheduled. 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 Pt advised to check if having a tint waiver for her vehicle would affect her DOT clearance. General: Check labs For overall migraine management: Reviewed nonpharmacological strategies to reduce migraine triggers/burden. Including, warming devices, using he insufflating had since scars when outside, trying migraine specific [place]-41 blue light blocking glasses, and/or trying a neuromodulation device such as cephaly. For acute headache treatment: Continue Nurtec ODT 75mg take daily at ONSET of migraine. May adjunct w/ Ibuprofen, Naproxen, Excedrin, or Tylenol- although goal is to use these < 3 days per week. Continue ibuprofen 400 mg q.4 to 6 hours p.r.n.. Retrial Sumatriptan 50-100mg w/ Ibuprofen prn when migraine returns after already taking nurtec- BP has been normotensive. Zofran 4mg ODT prn. Previous acute migraine medication trials: Sumatriptan 25-50mg- tolerated but not fully effective Acute migraine medication contraindications: none at this time. Future considerations: alternate triptan or ubrelvy. ? For headache prevention medication: Continue Riboflavin 400mg qam. Continue Magnesium 400mg qhs. Continue Emgality 120 mg sc q month, as patient has had significant reduction in migraine attack frequency. Continue Topiramate 50mg qhs- would not increase further d/t already causing intermittent paresthesias. Monitor paresthesias. Previous migraine prevention medication trials: Amitriptyline 25mg- caused drowsiness. Propranolol ER 60mg- caused slowness, shaking, and increased BP. Migraine prevention medication contraindications: Would avoid Aimovig d/t h/o constipation. ? f/u in 6 months or sooner prn. Orders: Orders Complete Blood Count Auto Diff Today D64.9 - Anemia, unspecified, E55.9 - Vitamin D deficiency, unspecified, G47.19 - Other hypersomnia, H53.9 - Unspecified visual disturbance Homocysteine Today D64.9 - Anemia, unspecified, E55.9 - Vitamin D deficiency, unspecified, G47.19 - Other hypersomnia, H53.9 - Unspecified visual disturbance Vitamin B12 and Folate Today D64.9 - Anemia, unspecified, E55.9 - Vitamin D deficiency, unspecified, G47.19 - Other hypersomnia, H53.9 - Unspecified visual disturbance Vitamin D 25-OH (D2 and D3) Today D64.9 - Anemia, unspecified, E55.9 - Vitamin D deficiency, unspecified, G47.19 - Other hypersomnia, H53.9 - Unspecified visual disturbance Lipid Panel with Reflex Today E78.9 - Disorder of lipoprotein metabolism, unspecified Comprehensive [place]. Panel Fast Today D64.9 - Anemia, unspecified, E55.9 - Vitamin D deficiency, unspecified, G47.19 - Other hypersomnia, H53.9 - Unspecified visual disturbance IRON PROFILE Today D64.9 - Anemia, unspecified, E55.9 - Vitamin D deficiency, unspecified, G47.19 - Other hypersomnia, H53.9 - Unspecified visual disturbance Methylmalonic Acid Today D64.9 - Anemia, unspecified, E55.9 - Vitamin D deficiency, unspecified, G47.19 - Other hypersomnia, H53.9 - Unspecified visual disturbance Ferritin Today D64.9 - Anemia, unspecified, E55.9 - Vitamin D deficiency, unspecified, G47.19 - Other hypersomnia, H53.9 - Unspecified visual disturbance Referrals Ophthalmology Referral G43.109 - Migraine with aura, not intractable, without status migrainosus, H53.9 - Unspecified visual disturbance Medications: Changed From riboflavin (vitamin B2) 400 mg PO DAILY 30 days 30 tabs 6RF To riboflavin (vitamin B2) 400 mg PO DAILY 90 tabs 3RF 90 days From magnesium oxide may hold for loose stools 400 mg PO BEDTIME 30 days 30 tabs 6RF To magnesium oxide may hold for loose stools 400 mg PO BEDTIME 90 tabs 3RF 90 days Refilled sumatriptan succinate 50 - 100 mg orally at onset of headache, may repeat in 2 hrs PRN; max 2 tabs per day or 4 tabs/week (may take with Ibuprofen/Nurtec) 12 tabs 6RF migraine headache 30 days ondansetron 4 mg PO Q6H PRN 20 tabs 6RF nausea and vomiting 30 days rimegepant (Nurtec ODT) 75 mg orally daily PRN; 16 tabs 6RF migraine headache 32 days MDD 1 tab topiramate 25 - 50 mg (1 - 2 x 25 mg) PO BEDTIME 60 tabs 6RF 30 days Coding Level of Care Code Est Pt Level 4 (17493) Diagnoses Migraine without aura and without status migrainosus, not intractable G43.009 Status migrainosus presence: without status migrainosus Intractability: not intractable Migraine with aura and without status migrainosus, not intractable G43.109 Status migrainosus presence: without status migrainosus Intractability: not intractable Paresthesia R20.2
--- OUTSIDE RECORDS SUMMARY | 2025-04-06 09:38 | XMS_ITS | Clinical Summary ---
Author Organization [employer] Address [address] [place] [address] [address] [place] [address] Care Team Providers Care Sheet Cutting Operator Name Role Phone Unavailable Primary Care [...] Sign Reading Time Taken Comments Blood Pressure 126/70 10/17/2024 9:56 AM EST Pulse 76 10/17/2024 9:56 AM EST Temperature - - Respiratory Rate - - Oxygen Saturation - - Inhaled Oxygen Concentration - - Weight - - Height - - Body Mass Index - - Plan of Treatment Upcoming Encounters Date Type Department Care Team (Late st Contact Info) Description 04/17/2025 10:00 AM EDT Office Visit [facility] [address] [place] [address] [facility] Maintenance Due Date Last Done Comments Depression Screening 1984 HIV Screening 1984 SDOH Screening 1984 Disability Screening 1984 Alcohol/Substance Use Screening 1996 Family Planning (PISQ) 01/29/1999 HPV Vaccines (1 - 3-dose series) 01/29/1999 Hepatitis C Screening 01/29/2002 DTaP/Tdap/Td Vaccines (1 - Tdap) 01/29/2003 Hepatitis B Vaccines (1 of 3 - 19+ 3-dose series) 01/29/2003 Pap Smear 01/29/2005 Cervical Cancer Screening 01/29/2014 HPV/Cotest 01/29/2014 Mammogram 2024 COVID-19 Vaccine (4 - 2023-2 5 season) 2024 08/04/2021, 12/11/2020, 11/20/2020 Dental Oral Exam 10/18/2024 04/16/2024 Dental Prophylaxis 04/17/2025 10/17/2024, 04/16/2024 Dental X-Ray: Bitewings 04/17/2025 04/16/20 24, 11/26/2023 Influenza Vaccine (#1) 2025 7, 07/09/2015 Tobacco Screening 10/17/2025 10/17/2024 Dental X-Ray: Full Mouth 04/17/2027 04/16/2024 Zoster [...] patient's age to complete this topic Meningococcal B Vaccine Aged Out No l onger eligible based on patient's age to complete this topic Meningococcal Vaccine Aged Out No juana ronny eligible based on patient's age to complete this topic Pneumococcal Vaccine: Pediatrics (0 to 5 Years) and At-Risk Patients (6 to 49) Years Aged Out No longer eligible b ased on patient's age to complete this topic RSV under 20 months Aged Out No longe r eligible based on patient's age to complete this topic Rotavirus Vaccines Aged Out No longer eligible based on patient's age to complete this topic Procedures Procedure Name Priority Date/Time Associated Diagnosis Comments PROPHYLAXIS - ADULT Routine 10/17/2024 1 0:00 AM EST INTRAORAL - COMPLETE SERIES OF RADIOGRAPHIC IMAGES Routine 04/16/2024 11:00 AM EDT PERIODIC ORAL EVALUATION - ESTABLISHED PATIENT Routine 04/16/2024 11:00 AM EDT from Last 3 Months or Most Recently Relevant to Health Maintenance Insurance DENTAL - [facility] PARTIAL (MEDICAID)
== END 2025-04-06 10:18 | disposition home or self-care (01) ==
LOC: HO.HSMS 09:13
PROVIDERS: PCP Internal Medicine; Visit Provider Nurse Practitioner Family
DX: G43.009 Migraine without aura, not intractable, without status migrainosus (principal); G43.109 Migraine with aura, not intractable, without status migrainosus; R20.2 Paresthesia of skin
CPT/HCPCS: 99214

== ENCOUNTER → 2025-04-06 09:13 | Outpatient (BNVA) | payer OTHER, SELFPAY | PROVIDERS: PCP Internal Medicine; Visit Provider Nurse Practitioner Family | DX: G43.109 Migraine with aura, not intractable, without status migrainosus (principal); R20.2 Paresthesia of skin | CPT/HCPCS: 99212 ==

== ENCOUNTER 2025-04-09 10:38 | Outpatient (REF) | payer OTHER, SELFPAY ==
[2025-04-09 10:55] LABS: MANUAL DIFF FLAG NO
[2025-04-09 11:02] LABS: Hematocrit 38.7 % (37.0-47.0); Hemoglobin 12.7 g/dl (12.0-16.0); Imm Gran Abs Auto 0.03 X10*3/uL (0.00-0.03); Imm Gran Pct Auto 0.4 % (0.0-0.4); Lymphocytes Absolute Auto 2.0 X10*3/uL (1.2-4.9); Mean Corpuscular HGB Conc 32.8 g/dl (31.0-35.0); Mean Corpuscular Hemoglobin 26.8 pg (27.0-33.0); Mean Corpuscular Volume 81.6 fL (80.0-98.0); NRBC Abs Auto 0.000 X10*3/uL (0.0-0.012); NRBC Pct Auto 0.0 /100WBC (0.0-0.2); Platelet Count 304 X10*3/uL (160-400); Red Blood Count 4.74 X10*6/uL (4.20-5.50); White Blood Count 7.9 X10*3/uL (4.8-10.8)
[2025-04-09 11:35] LABS: Cholesterol 222 mg/dL (<200); HDL Cholesterol 37 mg/dL (>40); Triglycerides 224 mg/dL (<150)
[2025-04-09 11:39] LABS: Alanine Aminotransferase 19 U/L (0-31); Albumin Level 4.8 g/dL (3.5-5.0); Alkaline Phosphatase 92 U/L (39-117); Anion Gap 12 (12-20); Aspartate Amino Transferase 25 U/L (5-31); Blood Urea Nitrogen 14 mg/dL (9-16); Calcium 9.2 mg/dL (8.4-10.2); Carbon Dioxide 25 mmol/L (22-29); Chloride 106 mmol/L (96-108); Estimated Glomerular Filt Rate > 60; Iron 69 mcg/dL (30-160); Magnesium 2.3 mg/dL (1.6-2.6); Percent Iron Saturation 16 % (15-50); Potassium 3.9 mmol/L (3.3-5.1); Sodium 139 mmol/L (135-145); Total Iron Binding Capacity 445 mcg/dL (228-428); Total Protein 7.7 g/dL (6.5-8.0); Unsaturated Iron Binding 376 ug/dL
--- OUTSIDE RECORDS SUMMARY | 2025-04-09 11:45 | XMS_ITS | Clinical Summary ---
Author Organization [employer] Address [address] [facility] [address] [place] [address] Care Team Providers Care Appraisal Coordinator Name Role Phone Unavailable Primary Care Provider [...] Description 04/17/2025 10:00 AM EDT Office Visit [facility] [address] [place] [address] [facility] Maintenance Due Date Last [...] 01/29/2014 HPV/Cotest 01/29/2014 Mammogram 2024 COVID-19 Vaccine ( - 2023-2 5 season) 2024 08/04/2021, 12/11/2020, [...]
[2025-04-09 11:52] LABS: Ferritin 5 ng/mL (10-250)
[2025-04-09 12:06] LABS: Folate 11.8 ng/mL (> or = 4.0); Vitamin B12 587 pg/mL (200-900)
[2025-04-09 12:15] LABS: Reflex LDLD? No
[2025-04-09 12:33] LABS: Free T4 (Free Thyroxine) 1.03 ng/dL (0.71-1.85)
[2025-04-13 13:22] LABS: Vitamin D 25-OH, D2 4 ng/mL; Vitamin D 25-OH, D3 34 ng/mL; Vitamin D 25-OH, Total 38 ng/mL (30-100)
== END 2025-04-09 10:39 | disposition home or self-care (01) ==
LOC: HO.LAB 10:38
PROVIDERS: Nurse Practitioner Family; Visit Provider Internal Medicine
DX: D64.9 Anemia, unspecified (principal); G47.19 Other hypersomnia; K59.00 Constipation, unspecified; H53.9 Unspecified visual disturbance; E78.9 Disorder of lipoprotein metabolism, unspecified; E55.9 Vitamin D deficiency, unspecified
CPT/HCPCS: 36415; 80048; 80053; 80061; 82306; 82607; 82728; 82746; 83090; 83540; 83735; 83921; 84439; 84443; 85025

== ENCOUNTER 2025-04-13 10:03 | Outpatient (AMB) | payer OTHER, SELFPAY ==
--- NOTE | 2025-04-13 10:11 | MHC.OFFVIS ---
Vital Signs 04/13/25 10:12 Height 5 ft Weight 207 lb 3.752 oz BMI 40.5 BP 124/83 Blood Pressure Location Lt brachial Position Sitting Pulse 71 Intake Visit Reasons: 3 mo constipation Intake Note: Toribio presents in the office as a 3 month follow up. CC: States that her issue is still with constipation here and there. Is better than her last visit. Allergies Penicillins Allergy (Mild, Verified 04/13/25 10:13) RASH penicillin V Allergy (Unknown, Verified 04/13/25 10:13) hives HPI Comments Details: 39 y.o F who has been referred from Neuro office for chronic constipation. Reports has had longstanding constipation since she gave brith to her first child. almost 19 years ago. Goes 7-8 days without having any BM. Assoc with bloating, nausea and abd discomfort. Sometimes has to digitalize. No change in appetite with that. Takes senna 2 tabs 1-2 times a week with which she does have normal BM. Doesnt take it consistently to avoid diarrhea. Diet: minimal fiber in her diet. Most days no fruits, vegetables or salads. 04/13/25: Here for follow up. Reports minimal change in sx. Has not been taking miralax daily. Labs reviewed. Has severe hypothyroidism. Last seen by Endocrine 2021 andlast seen by PCP 2023. Reports taking levothyroxine 175 daily however on med rec was filled in 2023 and pt reports she still has pills left. Laboratory Tests 04/09/25 10:53 Hgb 12.7 Hct 38.7 Sodium 139 Potassium 3.9 Chloride 106 Carbon Dioxide 25 BUN 14 Creatinine 0.72 Iron 69 TIBC 445 H % Saturation 16 Unsat Iron Binding 376 Ferritin 5 L AST 25 ALT 19 Triglycerides 224 H Cholesterol 222 H LDL Cholesterol, Calc 141 H HDL Cholesterol 37 L TSH 53.90 H Free T4 1.03 PFSH Medical History Non-adherence to medical treatment Obesity Vitamin D deficiency Pernicious anemia Premature ovarian failure Polyglandular autoimmune syndrome Hypothyroidism Surgical History Hx of tubal ligation Family History Father No problems noted. Mother Migraine headache Other Mental health disorder Substance use disorder Social History Housing: Apartment Alcohol intake: never Patient Tobacco Use Status: Never used Tobacco e-Cigarette/Vaping Use: Never Used Current occupational status: employed Cognitive needs: No Hearing needs: No Vision needs: No Review of Systems Const All systems reviewed & are unremarkable except as noted in HPI and below Physical Exam Exam Exam: No apparent distress Nonicteric Abdomen soft, nondistended Alert and oriented x3, normal gait Vital Signs: Last Vital Signs Pulse 71 04/13/25 10:12 BP 124/83 04/13/25 10:12 BMI result Body Mass Index 40.5 Assessment & Plan Assessment & Plan (1) Constipation: Code(s): K59.00 - Constipation, unspecified Category: Medical (2) Hypothyroidism: Code(s): E03.9 - Hypothyroidism, unspecified Category: Medical Qualifiers: 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 Is severely hypothyroid with TSH 50 and suspect that is likely contributing to majority of her sx. Compliance to levothyroxine is questionable as last filled in 2023 but pt reports still has some pills left. 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
[2025-04-13 10:12] VITALS: BP 124/83; PULSE 71; BMI 40.5
== END 2025-04-13 12:32 | disposition home or self-care (01) ==
LOC: HO.HGI 10:04
PROVIDERS: PCP Internal Medicine; Visit Provider Internal Medicine
DX: K59.00 Constipation, unspecified (principal); E03.8 Other specified hypothyroidism; E06.3 Autoimmune thyroiditis; K64.9 Unspecified hemorrhoids; R10.2 Pelvic and perineal pain; G89.29 Other chronic pain
CPT/HCPCS: 99214

== ENCOUNTER → 2025-04-13 10:03 | Outpatient (BNVA) | payer OTHER, SELFPAY | PROVIDERS: PCP Internal Medicine; Visit Provider Internal Medicine | DX: E06.3 Autoimmune thyroiditis (principal); K59.00 Constipation, unspecified; E03.8 Other specified hypothyroidism; K64.9 Unspecified hemorrhoids; R10.2 Pelvic and perineal pain; G89.29 Other chronic pain | CPT/HCPCS: 99212 ==

== ENCOUNTER 2025-04-14 12:43 | Outpatient (AMB) | payer OTHER, SELFPAY ==
[2025-04-14 12:45] VITALS: BP 110/78; PULSE 51; O2SAT 99; BMI 38.9
--- NOTE | 2025-04-14 12:45 | A.OFFVIS_ITS ---
Vital Signs 04/14/25 12:45 Height 5 ft 2 in Weight 212 lb 15.465 oz BMI 38.9 BP 110/78 Blood Pressure Location Lt brachial Position Sitting Pulse 51 Pulse Source Pulse Oximeter Pulse Oximetry (%) 99 Oxygen Delivery Method Room Air Intake Visit Reasons: Other specified hypothyroidism Intake Note: Patient present today for Other specified hypothyroidism. Pillowcase Cleaner Required: No Accompanied by: Self / Same As Patient Allergies Penicillins Allergy (Mild, Verified 04/14/25 12:49) RASH penicillin V Allergy (Unknown, Verified 04/14/25 12:49) hives Medication List - Last Reconciled 04/14/25 by Paige Schmid MD blood pressure monitor (Blood Pressure Kit) check BP and pulse daily and prn cholecalciferol (vitamin D3) (Vitamin D3) 50 mcg PO DAILY 90 days cyanocobalamin (vitamin B-12) 500 mcg sublingual DAILY 90 days estradiol 1 patch topical 2XW galcanezumab-gnlm (Emgality Pen) 120 mg subcut ONCE 30 days ibuprofen 400 mg PO Q6H PRN 30 days Levoxyl (levothyroxine) 175 mcg PO DAILY 90 days NS magnesium oxide 400 mg PO BEDTIME 90 days ondansetron 4 mg PO Q6H PRN 30 days polyethylene glycol 3350 (Gavilax) 17 grams PO DAILY riboflavin (vitamin B2) 400 mg PO DAILY 90 days rimegepant (Nurtec ODT) 75 mg orally daily PRN; 32 days MDD 1 tab sennosides 8.6 mg PO DAILY 90 days sumatriptan succinate 50 - 100 mg orally at onset of headache, may repeat in 2 hrs PRN; max 2 tabs per day or 4 tabs/week (may take with Ibuprofen/Nurtec) 30 days topiramate 25 - 50 mg (1 - 2 x 25 mg) PO BEDTIME 30 days HPI Comments Details: 40-year-old female coming in today for follow up of hypothyroidism. Diagnosed with hypothyroidism as a teenager She has been seen at our clinic before about 3 years ago, last visit with Dr. Grey was in April 2025. From what I can tell from chart review compliance has been an issue and at the time that she was following last she was on Levoxyl 150 mcg 7 tablets once a week. 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 She has mild esophageal dysmotility proven by abnormal barium swallowing study in 2016. She has celiac disease, she has high risk genetic testing, negative antibodies, she has , Pernicious anemia. Depending on her adherence to the medication she has had fluctuations in her TSH with levels in the 60s in the last couple of years. She is currently on Levoxyl 175 mcg daily, misses it twice a week . While she says she has only been missing it twice a week, her last prescription is from June 2024 for 3 months supply with no refill, so she probably missed it more than that. This is also reflected in her blood work. Most recent blood work 04/09/2025 showed TSH elevated at 53.9, free T4 1.03. She is not 100% compliance, She has good method of administration. She has cold intolerance, weight stable.. she denies diarrhea, she has constipation, denies insomnia, + fatigue, denies dry skin, denies dysphagia, dyspnea, dysphonia, tremors, palpitations, irritability, anxiety. LMP: on estradiol patch plus IUD , has some spotting here and there , sees obgyn Family History: maternal uncle has graves disease., grandmother hyper thyroidism Has a tubal ligation Works as a middle school principal and [employer] Alcohol: 2 drinks a month No smoking No drug use Physical exam General: sitting comfortably in no acute distress HEENT: normocephalic/atraumatic, Neck: supple Cardiac: normal heart sounds Pulm: normal breath sounds B/L, no added breath sounds Abd: not distended, no tenderness Extremities: no edema, no signs of myxedema Laboratory Tests 10/18/18 06/11/19 06/11/19 12:16 11:35 11:35 Vitamin B12 692 25-OH Vitamin D Total 29.6 Free T4 0.45 L TSH 3rd Generation > 100.00 H Estrone (E1) 53 Estradiol Ultra LCMSMS 16 Total Estrogens 158.1 FSH 62.0 Luteinizing Hormone 28.0 Progesterone <0.1 Anti-Parietal Cell Ab 84.9 H Intrins Factor Block Ab Negative 21-Hydroxylase Antibody SEE NOTE Laboratory Tests 04/09/25 10:53 TSH 53.90 H Free T4 1.03 US thyroid 07/11/16 Right Thyroid Lobe: 2.8 x 0.8 x 1.1 cm, volume 1.3 ml. Left Thyroid Lobe: 2.9 x 0.7 x 0.9 cm, volume 1.0 ml. Isthmus: 0.1 cm in maximum AP dimension. PARENCHYMA: The gland echo texture is heterogeneous. Thyroid vascularity is normal. RIGHT THYROID LOBE: No nodules. ISTHMUS: No nodules. LEFT THYROID LOBE: No nodules. NODES: No lymphadenopathy is seen in the tissue surrounding the thyroid gland. [facility] Medical History Non-adherence to medical treatment Obesity Vitamin D deficiency Pernicious anemia Premature ovarian failure Polyglandular autoimmune syndrome Hypothyroidism Surgical History Hx of tubal ligation Family History Father No problems noted. Mother Migraine headache Other Mental health disorder Substance use disorder Social History Housing: Apartment Alcohol intake: never Patient Tobacco Use Status: Never used Tobacco e-Cigarette/Vaping Use: Never Used Current occupational status: employed Cognitive needs: No Hearing needs: No Vision needs: No Assessment & Plan Assessment & Plan (1) Hypothyroidism: Code(s): E03.9 - Hypothyroidism, unspecified Category: Medical Qualifiers: Hypothyroidism type: due to Elisabeth's thyroiditis Qualified Code(s): E03.8 - Other specified hypothyroidism; E06.3 - Autoimmune thyroiditis Plan: 40-year-old female with a history of 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 She has had issues with adherence with her medications. Says she is currently on Levoxyl 175 mcg daily. She has never had an allergic reaction to the generic or any adverse event. I will switch her back to generic for ease of obtaining the medication. She is currently on Levoxyl 175 mcg daily, misses it twice a week . While she says she has only been missing it twice a week, her last prescription is from June 2024 for 3 months supply with no refill, so she probably missed it more than that. This is also reflected in her blood work. Most recent blood work 04/09/2025 showed TSH elevated at 53.9, free T4 1.03. She works as a middle school principal, says that some days she has to leave the house very early and misses taking the medication are eats breakfast and then realizes she never took the medication. We discussed several strategies to help with better adherence such as taking the medication even if she has had her breakfast, taking 2 pills the next day if she misses the pill, switching to a pillbox to help with remembering what day she took the medicine, putting a recurring alarm on her phone, sticky note on her bathroom mirror.. At this time I am sending her a prescription for levothyroxine 175 mcg daily. We will plan to repeat blood work in 6 weeks with follow up in 7-8 weeks. Plan: -start levothyroxine 175 mcg daily -ordered TSH and free T4 to be done in 6 weeks -follow up in 7-8 weeks Plan I spent 30 minutes in reviewing the record, seeing the patient and documenting in the medical record. Orders: Orders Free T4 (Free Thyroxine) 6 Weeks E03.8 - Other specified hypothyroidism, E06.3 - Autoimmune thyroiditis Thyroid Stimulating Hormone 6 Weeks E03.8 - Other specified hypothyroidism, E06.3 - Autoimmune thyroiditis Medications: New levothyroxine (Levoxyl) 175 mcg PO DAILY 90 tabs 1RF Discontinued Levoxyl (levothyroxine) Discontinued Reason: Doctor's Order 175 mcg PO DAILY 90 days 90 tabs 0RF NS Coding Level of Care Code Est Pt Level 4 (88111) Diagnoses Hypothyroidism due to Elisabeth's thyroiditis E03.8; E06.3 Hypothyroidism type: due to Elisabeth's thyroiditis Time Spent (min) 30
--- OUTSIDE RECORDS SUMMARY | 2025-04-14 13:54 | XMS_ITS | Clinical Summary ---
Author Organization [employer] Address [address] [place] [address] Care Team Providers Care Induction Machine Operator Name Role Phone Unavailable Primary Care [...] Description 04/17/2025 10:00 AM EDT Office Visit [facility] [address] [place] [address] Kg Mann Health Maintenance Due Date Last [...]
== END 2025-04-14 13:03 | disposition home or self-care (01) ==
LOC: HO.ENCR 12:44
PROVIDERS: PCP Internal Medicine; Visit Provider Student in an Organized Health Care Education/Training Program
DX: E03.8 Other specified hypothyroidism (principal); E06.3 Autoimmune thyroiditis
CPT/HCPCS: 99214

== ENCOUNTER → 2025-04-14 12:43 | Outpatient (BNVA) | payer OTHER, SELFPAY | PROVIDERS: PCP Internal Medicine; Visit Provider Student in an Organized Health Care Education/Training Program | DX: E06.3 Autoimmune thyroiditis (principal); E03.8 Other specified hypothyroidism | CPT/HCPCS: 99212 ==

== ENCOUNTER 2025-06-11 12:45 | Outpatient (AMB) | payer OTHER, SELFPAY ==
[2025-06-11 12:48] VITALS: BP 118/70; PULSE 83; O2SAT 96; BMI 38.4
--- NOTE | 2025-06-11 12:48 | A.OFFVIS_ITS ---
Vital Signs 06/11/25 12:48 Height 5 ft 2 in Weight 210 lb 1.608 oz BMI 38.4 BP 118/70 Blood Pressure Location Lt brachial Position Sitting Pulse 83 Pulse Source Pulse Oximeter Pulse Oximetry (%) 96 Oxygen Delivery Method Room Air Intake Visit Reasons: hypothyroidism Intake Note: Patient presents for hypothyroid. Accompanied by: Self / Same As Patient Allergies Penicillins Allergy (Mild, Verified 06/11/25 12:53) RASH penicillin V Allergy (Unknown, Verified 06/11/25 12:53) hives Medication List - Last Reconciled 06/11/25 by Paige Schmid MD ascorbic acid (vitamin C) 500 mg PO DAILY 90 days blood pressure monitor (Blood Pressure Kit) check BP and pulse daily and prn cholecalciferol (vitamin D3) (Vitamin D3) 50 mcg PO DAILY 90 days cyanocobalamin (vitamin B-12) 500 mcg sublingual DAILY 90 days estradiol 1 patch topical 2XW ferrous gluconate 324 mg PO DAILY 90 days galcanezumab-gnlm (Emgality Pen) 120 mg subcut ONCE 30 days ibuprofen 400 mg PO Q6H PRN 30 days levothyroxine (Levoxyl) 175 mcg PO DAILY magnesium oxide 400 mg PO BEDTIME 90 days ondansetron 4 mg PO Q6H PRN 30 days polyethylene glycol 3350 (Gavilax) 17 grams PO DAILY riboflavin (vitamin B2) 400 mg PO DAILY 90 days rimegepant (Nurtec ODT) 75 mg orally daily PRN; 32 days MDD 1 tab sennosides 8.6 mg PO DAILY 90 days sumatriptan succinate 50 - 100 mg orally at onset of headache, may repeat in 2 hrs PRN; max 2 tabs per day or 4 tabs/week (may take with Ibuprofen/Nurtec) 30 days topiramate 25 - 50 mg (1 - 2 x 25 mg) PO BEDTIME 30 days HPI Comments Details: 40-year-old female coming in today for follow up of hypothyroidism. Diagnosed with hypothyroidism as a teenager She has been seen at our clinic before about 3 years ago, last visit with Dr. Grey was in April 2022 From what I can tell from chart review compliance has been an issue and at the time that she was following last she was on Levoxyl 150 mcg 7 tablets once a week. 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 She has mild esophageal dysmotility proven by abnormal barium swallowing study in 2016. She has celiac disease, she has high risk genetic testing, negative antibodies, she has , Pernicious anemia. Depending on her adherence to the medication she has had fluctuations in her TSH with levels in the 60s in the last couple of years. She is currently on Levoxyl 175 mcg daily, misses it twice a week . While she says she has only been missing it twice a week, her last prescription is from June 2024 for 3 months supply with no refill, so she probably missed it more than that. This is also reflected in her blood work. Most recent blood work 04/09/2025 showed TSH elevated at 53.9, free T4 1.03. She is not 100% compliance, She has good method of administration. She has cold intolerance, weight stable.. she denies diarrhea, she has constipation, denies insomnia, + fatigue, denies dry skin, denies dysphagia, dyspnea, dysphonia, tremors, palpitations, irritability, anxiety. LMP: on estradiol patch plus IUD , has some spotting here and there , sees obgyn Family History: maternal uncle has graves disease., grandmother hyper thyroidism Has a tubal ligation Works as a associate school psychologist and [employer] Alcohol: 2 drinks a month No smoking No drug use Interval history Currently on levothyroxine 175 mcg daily: Adherence:missing it 2-3 times a week Past two weeks started iron. and vitamin C taking it 6 am, taking levothyroxine 4 pm Forgot to do blood work prior to this appointment Physical exam General: sitting comfortably in no acute distress HEENT: normocephalic/atraumatic, Neck: supple Cardiac: normal heart sounds Pulm: normal breath sounds B/L, no added breath sounds Abd: not distended, no tenderness Extremities: no edema, no signs of myxedema Laboratory Tests 10/18/18 06/11/19 06/11/19 12:16 11:35 11:35 Vitamin B12 692 25-OH Vitamin D Total 29.6 Free T4 0.45 L TSH 3rd Generation > 100.00 H Estrone (E1) 53 Estradiol Ultra LCMSMS 16 Total Estrogens 158.1 FSH 62.0 Luteinizing Hormone 28.0 Progesterone <0.1 Anti-Parietal Cell Ab 84.9 H Intrins Factor Block Ab Negative 21-Hydroxylase Antibody SEE NOTE Laboratory Tests 04/09/25 10:53 TSH 53.90 H Free T4 1.03 US thyroid 07/11/16 Right Thyroid Lobe: 2.8 x 0.8 x 1.1 cm, volume 1.3 ml. Left Thyroid Lobe: 2.9 x 0.7 x 0.9 cm, volume 1.0 ml. Isthmus: 0.1 cm in maximum AP dimension. PARENCHYMA: The gland echo texture is heterogeneous. Thyroid vascularity is normal. RIGHT THYROID LOBE: No nodules. ISTHMUS: No nodules. LEFT THYROID LOBE: No nodules. NODES: No lymphadenopathy is seen in the tissue surrounding the thyroid gland. [facility] Medical History Non-adherence to medical treatment Obesity Vitamin D deficiency Pernicious anemia Premature ovarian failure Polyglandular autoimmune syndrome Hypothyroidism Surgical History Hx of tubal ligation Family History Father No problems noted. Mother Migraine headache Other Mental health disorder Substance use disorder Social History Housing: Apartment Alcohol intake: never Patient Tobacco Use Status: Never used Tobacco e-Cigarette/Vaping Use: Never Used Current occupational status: employed Cognitive needs: No Hearing needs: No Vision needs: No Physical Exam Vital Signs: Last Vital Signs Pulse 83 06/11/25 12:48 BP 118/70 06/11/25 12:48 Pulse Ox 96 06/11/25 12:48 Oxygen Delivery Method Room Air 06/11/25 12:48 BMI result Body Mass Index 38.4 Assessment & Plan Assessment & Plan (1) Hypothyroidism: Code(s): E03.9 - Hypothyroidism, unspecified Category: Medical Qualifiers: Hypothyroidism type: due to Elisabeth's thyroiditis Qualified Code(s): E03.8 - Other specified hypothyroidism; E06.3 - Autoimmune thyroiditis Plan: 40-year-old female with a history of hypothyroidism due to Elisabeth's thyro iditis diagnosed when she was a teenager. She has had issues with adherence with her medications. she was on on Levoxyl 175 mcg daily. She has never had an allergic reaction to the generic or any adverse event. so we switched her back to generic for ease of obtaining the medication. While she she previously said she only misses it it twice a week, her previous prescription was from June 2024 for 3 months supply with no refill, so she probably missed it more than that. This is also reflected in her blood work. Most recent blood work 04/09/2025 showed TSH elevated at 53.9, free T4 1.03. 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 She forgot to do blood work prior to this appointment. She also recently started taking iron and vitamin-C I told her to take the separately from her levothyroxine. We again discussed several strategies to help with better adherence such as taking the medication even if she has had her breakfast, taking 2 pills the next day if she misses the pill, switching to a pillbox to help with remembering what day she took the medicine, putting a recurring alarm on her phone, sticky note on her bathroom mirror.. I told her to repeat blood work 6-8 weeks after taking the medication regularly. Plan: -continue levothyroxine 175 mcg daily -again today discussed several strategies for better adherence -ordered TSH and free T4 to be done in 6-8 weeks -follow up in 4-5 months Plan see above Orders: Orders Thyroid Stimulating Hormone 6 Weeks E03.8 - Other specified hypothyroidism, E06.3 - Autoimmune thyroiditis Free T4 (Free Thyroxine) 6 Weeks E03.8 - Other specified hypothyroidism, E06.3 - Autoimmune thyroiditis Patient Instructions: Continue levothyroxine 175 mcg daily, take this in the morning early a.m., you should take your other pills in the night or evening Especially from iron by at least 5-6 hours. Do blood work in 6-8 weeks Follow up in October 2025, every time you have an appointment with me you would need blood work done recently, please make sure blood work is done before appointments Coding Level of Care Code Est Pt Level 3 (10467) Diagnoses Hypothyroidism due to Elisabeth's thyroiditis E03.8; E06.3 Hypothyroidism type: due to Elisabeth's thyroiditis
--- OUTSIDE RECORDS SUMMARY | 2025-06-11 15:54 | XMS_ITS | Clinical Summary ---
Author Organization [employer] Address [address] [place] [address] Care Team Providers Care Briquette Operator Name Role Phone Unavailable Primary Care [...] Noted Date Diagnosed Date Common migraine 11/26/2023 Encounters Date Type Department Care Team Description 04/17/2025 10:00 AM EDT Office Visit [facility] [address] [place] [address] Kg Mann Dental calculus (Primary Dx) from Last 3 Months Social History Tobacco Use Types Packs/Day Years [...] Sign Reading Time Taken Comments Blood Pressure 124/76 04/17/2025 10:15 AM EDT Pulse 65 04/17/2025 10:15 AM EDT Temperature - - Respiratory Rate - - Oxygen Saturation - - Inhaled Oxygen Concentration - - Weight - - Height - - Body Mass Index - - Plan of Treatment Upcoming Encounters Date Type Department Care Team ([facility] st Contact Info) Description 10/20/2025 10:15 AM EST Office Visit [facility] [address] [place] [address] Kg Mann Health Maintenance Due Date Last [...] 01/29/2014 Mammogram 2024 COVID-19 Vaccine ( - 2024-2 6 season) 2025 08/04/2021, 12/11/2020, 11/20/2020 Influenza Vaccine (#1) 2025 7, 07/09/2015 Dental Oral Exam 10/19/2025 04/17/2025, 04/16/2024 Dental Prophylaxis 10/19/2025 04/17/2025, 10/17/2024, 04/16/2024 Tobacco Screening 04/17/2026 04/17/2025 Dental X-Ray: Bitewings 04/18/2026 04/17/20 25, 04/16/2024, 11/26/2023 Dental X-Ray: Full Mouth 04/17/2027 04/16/2024 [...] Procedure Name Priority Date/Time Associated Diagnosis Comments INTRAORAL - PERIAPICAL FIRST RADIOGRAPHIC IMAGE Routine 04/17/2025 10:00 AM EDT BITEWINGS - 4 RADIOGRAPHIC IMAGES Routine 04/17/2025 10:00 AM EDT CASE PRESENTATION, DETAILED AND EXTENSIVE TREATMENT PLANNING Routine 04/17/2025 10:00 AM EDT ORAL HYGIENE INSTRUCTIONS Routine 2024 10:00 AM EDT PROPHYLAXIS - ADULT Routine 04/17/2025 1 0:00 AM EDT INTRAORAL - PERIAPICAL EACH ADDITIONAL RADIOGRAPHIC IMAGE Routine 04/17/2025 10:00 AM EDT PERIODIC ORAL EVALUATION - ESTABLISHED PATIENT Routine 04/17/2025 10:00 AM EDT INTRAORAL - COMPLETE SERIES OF RADIOGRAPHIC IMAGES Routine 04/16/2024 11:00 AM EDT from Last 3 Months or Most Recently Relevant to Health Maintenance Insurance DENTAL - [facility] PARTIAL (MEDICAID)
== END 2025-06-11 13:06 | disposition home or self-care (01) ==
LOC: HO.ENCR 12:46
PROVIDERS: PCP Internal Medicine; Visit Provider Student in an Organized Health Care Education/Training Program
DX: E03.8 Other specified hypothyroidism (principal); E06.3 Autoimmune thyroiditis
CPT/HCPCS: 99213

== ENCOUNTER → 2025-06-11 12:45 | Outpatient (BNVA) | payer OTHER, SELFPAY | PROVIDERS: PCP Internal Medicine; Visit Provider Student in an Organized Health Care Education/Training Program | DX: E03.8 Other specified hypothyroidism (principal); E06.3 Autoimmune thyroiditis; Z91.148 Patient's other noncompliance with medication regimen for other reason | CPT/HCPCS: 99212 ==

== ENCOUNTER 2025-07-13 09:27 | Outpatient (AMB) | payer OTHER, SELFPAY ==
[2025-07-13 09:34] VITALS: BP 129/74; PULSE 74; BMI 37.5
--- NOTE | 2025-07-13 09:34 | A.OFFVIS_ITS ---
Vital Signs 07/13/25 09:34 Height 5 ft 2 in Weight 205 lb 0.478 oz BMI 37.5 BP 129/74 Blood Pressure Location Lt brachial Position Sitting Pulse 74 Intake Visit Reasons: Follow up 3 months. Intake Note: Toribio presents in the office as a 3 month follow up. CC: States that she is feeling okay - just a follow up. Wallcovering Texturer Required: No Allergies Penicillins Allergy (Mild, Verified 07/13/25 09:34) RASH penicillin V Allergy (Unknown, Verified 07/13/25 09:34) hives [facility] Medical History Non-adherence to medical treatment Obesity Vitamin D deficiency Pernicious anemia Premature ovarian failure Polyglandular autoimmune syndrome Hypothyroidism Surgical History Hx of tubal ligation Family History Father No problems noted. Mother Migraine headache Other Mental health disorder Substance use disorder Social History Housing: Apartment Alcohol intake: never Patient Tobacco Use Status: Never used Tobacco e-Cigarette/Vaping Use: Never Used Current occupational status: employed Cognitive needs: No Hearing needs: No Vision needs: No Coding
--- NOTE | 2025-07-13 09:34 | MHC.OFFVIS ---
Vital Signs 07/13/25 09:34 Height 5 ft 2 in Weight 205 lb 0.478 oz BMI 37.5 BP 129/74 Blood Pressure Location Lt brachial Position Sitting Pulse 74 Intake Visit Reasons: Follow up 3 months. Allergies Penicillins Allergy (Mild, Verified 07/13/25 09:34) RASH penicillin V Allergy (Unknown, Verified 07/13/25 09:34) hives HPI Comments Details: 39 y.o F who has been referred from Neuro office for chronic constipation. Reports has had longstanding constipation since she gave brith to her first child. almost 19 years ago. Goes 7-8 days without having any BM. Assoc with bloating, nausea and abd discomfort. Sometimes has to digitalize. No change in appetite with that. Takes senna 2 tabs 1-2 times a week with which she does have normal BM. Doesnt take it consistently to avoid diarrhea. Diet: minimal fiber in her diet. Most days no fruits, vegetables or salads. 04/13/25: Here for follow up. Reports minimal change in sx. Has not been taking miralax daily. Labs reviewed. Has severe hypothyroidism. Last seen by Endocrine 2021 andlast seen by PCP 2023. Reports taking levothyroxine 175 daily however on med rec was filled in 2023 and pt reports she still has pills left. Laboratory Tests 04/09/25 10:53 Hgb 12.7 Hct 38.7 Sodium 139 Potassium 3.9 Chloride 106 Carbon Dioxide 25 BUN 14 Creatinine 0.72 Iron 69 TIBC 445 H % Saturation 16 Unsat Iron Binding 376 Ferritin 5 L AST 25 ALT 19 Triglycerides 224 H Cholesterol 222 H LDL Cholesterol, Calc 141 H HDL Cholesterol 37 L TSH 53.90 H Free T4 1.03 07/13/25: Here for follow up. Again sx are largely unchanged as pt continues to not utilize strategies discussed at last visit including fiber intake and addition of osmotic laxative. Has 1-2 BM per week. Thyroid function post replacement is also unknown as pt forgot to do labs. Reminded to get these dose this week or next week. [facility] Medical History Non-adherence to medical treatment Obesity Vitamin D deficiency Pernicious anemia Premature ovarian failure Polyglandular autoimmune syndrome Hypothyroidism Surgical History Hx of tubal ligation Family History Father No problems noted. Mother Migraine headache Other Mental health disorder Substance use disorder Social History Housing: Apartment Alcohol intake: never Patient Tobacco Use Status: Never used Tobacco e-Cigarette/Vaping Use: Never Used Current occupational status: employed Cognitive needs: No Hearing needs: No Vision needs: No Review of Systems Const All systems reviewed & are unremarkable except as noted in HPI and below Physical Exam Vital Signs: Last Vital Signs Pulse 74 07/13/25 09:34 BP 129/74 07/13/25 09:34 BMI result Body Mass Index 37.5 Assessment & Plan Assessment & Plan (1) Constipation: Code(s): K59.00 - Constipation, unspecified Category: Medical (2) Hypothyroidism: Code(s): E03.9 - Hypothyroidism, unspecified Category: Medical Qualifiers: Hypothyroidism type: due to Elisabeth's thyroiditis Qualified Code(s): E03.8 - Other specified hypothyroidism; E06.3 - Autoimmune thyroiditis (3) Hemorrhoid: Code(s): K64.9 - Unspecified hemorrhoids Category: Medical Plan Continues to be symptomatic but also has not been utilizing miralax and fiber. Repeat TSH pending. Reviewed that if she is still constipated despite medical mgmt with miralax senna and fiber will add secretagogue. Plan: - Reminded to take fiber 1 tsp mixed in a cup of water daily - Take miralax 17g mixed in a cup of water EVERY day. Can skip for 2 loose BMs per day. - Elevate legs while having a BM - Follow up 5 months Medications: New polyethylene glycol 3350 (Gavilax) 17 grams PO DAILY 238 grams 0RF wheat dextrin (Benefiber Healthy Shape) 5 grams PO DAILY 450 grams 1RF 90 days Coding Level of Care Code Est Pt Level 3 (30390) Diagnoses Constipation K59.00 Hypothyroidism due to Elisabeth's thyroiditis E03.8; E06.3 Hypothyroidism type: due to Elisabeth's thyroiditis Hemorrhoid K64.9
== END 2025-07-13 10:22 | disposition home or self-care (01) ==
LOC: HO.HGI 09:27
PROVIDERS: PCP Internal Medicine; Visit Provider Internal Medicine
DX: K59.00 Constipation, unspecified (principal); E03.8 Other specified hypothyroidism; E06.3 Autoimmune thyroiditis; K64.9 Unspecified hemorrhoids
CPT/HCPCS: 99213

== ENCOUNTER → 2025-07-13 09:27 | Outpatient (BNVA) | payer OTHER, SELFPAY | PROVIDERS: PCP Internal Medicine; Visit Provider Internal Medicine | DX: E06.3 Autoimmune thyroiditis (principal); E03.8 Other specified hypothyroidism; K64.9 Unspecified hemorrhoids; K59.00 Constipation, unspecified | CPT/HCPCS: 99212 ==